=== PATIENT | female | born 1960 | race Caucasian/White ===

== ENCOUNTER 2017-06-21 15:56 | Inpatient (IN) | payer MEDICARE ==
[2017-06-21] MEDS ORDERED: Sodium Chloride 0.9% 1,000 ML IV ONE (18:53)
[2017-06-21 19:03] LABS: BASO # 0.1 K/uL (0.0-0.2); BASO % 0.6 % (0.0-2.0); EOS # 0.1 K/uL (0.0-0.7); EOS % 0.4 % (0.0-4.0); HEMATOCRIT 23.8 % (34.0-47.0); LYMPH # 1.1 K/uL (1.0-4.3); LYMPH % 8.8 % (20.0-40.0); MEAN CELL VOLUME 82.4 fL (81.0-99.0); MEAN CORPUSCULAR HEMOGLOBIN 26.7 pg (27.0-31.0); MEAN CORPUSCULAR HGB CONC 32.5 g/dL (33.0-37.0); MEAN PLATELET VOLUME 8.1 fL (7.2-11.7); MONO # 0.6 K/uL (0.0-0.8); NRBC % 0.4 % (0.0-2.0); PLATELET COUNT 255 K/uL (130-400); RED CELL DISTRIBUTION WIDTH 16.7 % (11.5-14.5)
--- NOTE | 2017-06-21 19:10 | C.PDOC ---
History Of Present Illness 57 year old female presents to the ED c/o epigastric pain radiating to her back associated with nausea, vomit that has been occurring for the past 10 days. Patient also states dyspnea on exertion, walking across the room. She has a Hx of 5-10 abdominal surgeries, denies gallbladder or appendix related surgery. Patient has Hx of colon resection removal of GIST. Otherwise, Patient denies fever, chills, dysuria, urinary symptoms, dizziness, CP, weakness or numbness. Time Seen by Provider: 06/21/17 18:46 Chief Complaint (Nursing): Abdominal Pain History Per: Patient History/Exam Limitations: no limitations Onset/Duration Of Symptoms: Days Current Symptoms Are (Timing): Still Present Location Of Pain/Discomfort: Epigastric Radiation Of Pain To:: Back Quality Of Discomfort: "Pain" Associated Symptoms: Nausea, Vomiting Alleviating Factors: None Recent travel outside of the [place]: No Additional History Per: Patient Abnormal Vaginal Bleeding: No Past Medical History Reviewed: Historical Data, Nursing Documentation, Vital Signs Vital Signs: Last Vital Signs Temp 98.1 F 06/21/17 16:57 Pulse 81 06/21/17 21:44 Resp 18 06/21/17 21:44 BP 104/53 L 06/21/17 21:44 Pulse Ox 100 06/21/17 22:23 - Medical History PMH: Anxiety, Asthma, HTN Surgical History: Appendectomy Family History: States: Unknown Family Hx - Social History Hx Alcohol Use: No Hx Substance Use: No Review Of Systems Constitutional: Negative for: Fever, Chills Cardiovascular: Negative for: Chest Pain, Palpitations Respiratory: Positive for: SOB with Excertion. Negative for: Cough Gastrointestinal: Positive for: Nausea, Vomiting, Abdominal Pain (Epigastric) Genitourinary: Negative for: Dysuria, Incontinence, Hematuria, Vaginal Discharge , Vaginal Bleeding Musculoskeletal: Positive for: Back Pain Skin: Negative for: Rash Neurological: Negative for: Weakness, Numbness Physical Exam - Physical Exam Appears: Agitated (Tearful), Other (Morbidly obese, anxious) Skin: Normal Color, Warm, Dry Head: Atraumatic, Normacephalic Eye(s): bilateral: PERRL Oral Mucosa: Moist, No Drooling Throat: Normal, No Erythema, No Exudate Neck: Normal ROM, Supple Chest: Symmetrical Cardiovascular: Rhythm Regular, No Murmur Respiratory: No Decreased Breath Sounds, No Accessory Muscle Use Gastrointestinal/Abdominal: Soft, Tenderness (vagely), No Guarding, No Rebound, Other (Globose abdomen) Back: No CVA Tenderness Extremity: Normal ROM, No Pedal Edema, No Deformity, No Swelling, Other (Obese) Pulses: Left Dorsalis Pedis: Normal, Right Dorsalis Pedis: Normal Neurological/Psych: Oriented x3, Normal Speech, Normal Cognition ED Course And Treatment - Laboratory Results Result Diagrams: 06/21/17 19:00 06/21/17 19:00 Lab Interpretation: Abnormal (tox + cannabis) ECG: Interpreted By Me ECG Rhythm: Sinus Rhythm ECG Interpretation: Normal Rate From EC O2 Sat by Pulse Oximetry: 100 (On RA) Pulse Ox Interpretation: Normal - Radiology CXR: Interpreted by Me CXR Interpretation: Yes: No Acute Disease Progress Note: ativan, toradol, IVF, zosyn empircally for ? local infection/ inflammation. Blood transfusion ordered and started. Reevaluation Time: 22:19 Reassessment Condition: Improved - Physician Consult Information Outcome Of Conversation: 2199: d/2 Dr. Bhatia- Surgery Hedis Analyst, ok to Consult , prefers adm to Medicine w Dr. Pastor Ascencio. 2214: d/w Dr. Pastor Ascencio, ok to admit Medical Decision Making Medical Decision Making: Impression : 57 y/o female with multiple Hx of abdominal surgeries c/o epigastric pain. Plan: * EKG, UA, blood work ordered * Pepcid 20 mg IVP given * Ativan 1 mg PO given * IV fluids given * Toradol 30 mg IVP given * Zofran 4 mg PO given * [id number] 40 meq PO given Recurrent GIST, transferse colon hypokalemia, repleated Anemia, prob due to GI loss- Blood transfusions pre-op Consult with Dr. Khan as she was involved in prior GIST eval. Disposition Doctor Will See Patient In The: Hospital Counseled Patient/Family Regarding: Studies Performed, Diagnosis - Disposition Disposition: HOSPITALIZED Disposition Time: 22:23 Condition: GOOD Forms: [facility] (Icelandic) - Clinical Impression Clinical Impression: Colon tumor, Anemia, Hypokalemia - Scribe Statement The provider has reviewed the documentation as recorded by the Scribe Jose Martin Lockwood All medical record entries made by the Scribe were at my direction and personally dictated by me. I have reviewed the chart and agree that the record accurately reflects my personal performance of the history, physical exam, medical decision making, and the department course for this patient. I have also personally directed, reviewed, and agree with the discharge instructions and disposition.
[2017-06-21 19:16] LABS: ALB/GLOB RATIO 1.4 (1.0-2.1); BILIRUBIN,TOTAL 1.2 mg/dL (0.2-1.3); POTASSIUM 2.8 mmol/L (3.6-5.2); TOTAL PROTEIN 6.8 g/dL (6.3-8.3)
[2017-06-21] MEDS ORDERED: Iodixanol 320 MG/ML 100 ML BOTTLE IV ONE (19:21)
[2017-06-21 19:27] LABS: TROPONIN I 0.027 ng/mL (0.00-0.120)
[2017-06-21] MEDS ORDERED: Potassium Chloride 10 mEq ER Tab PO STA (19:33)
[2017-06-21] MEDS ORDERED: Potassium Chloride 20 mEq ER Tab PO ONE (19:48)
[2017-06-21 21:00] LABS: EOSINOPHIL 1 % (0-4); NEUTROPHIL 87 % (50-75); TOTAL CELLS COUNTED 100
[2017-06-21 21:10] LABS: RBC URINE 8 /hpf (0-3); TRANSITIONAL EPITHIAL < 1 /hpf (0-3); URINE BACTERIA RARE (<OCC); URINE BILIRUBIN 1+ (NEGATIVE); URINE COLOR Amber (YELLOW); URINE GLUCOSE (UA) NORMAL (Normal); URINE KETONE TRACE mg/dL (NEGATIVE); URINE PROTEIN 1+ mg/dL (NEGATIVE); WBC URINE 7 /hpf (0-5)
[2017-06-21 21:11] LABS: URINE BLOOD 1+ (NEGATIVE); URINE LEUKOCYTE ESTERASE 1+ Leu/uL (Negative)
--- NOTE | 2017-06-21 21:46 | CT ---
EXAM: CT Abdomen and Pelvis With Intravenous Contrast CLINICAL HISTORY: 57 years old, female; Pain; Abdominal pain; Flank; Upper; Additional info: Epigastric x 10 days. History of gist resection many years prior TECHNIQUE: Axial computed tomography images of the abdomen and pelvis with intravenous contrast. All CT scans at this facility use one or more dose reduction techniques, viz.: automated exposure control; ma/kV adjustment per patient size (including targeted exams where dose is matched to indication; i.e. head); or iterative reconstruction technique. Coronal and sagittal reformatted images were created and reviewed. CONTRAST: 100 mL of visipaque 320 administered intravenously. COMPARISON: No relevant prior studies available. FINDINGS: Lower thorax: The bilateral lung bases are clear. ABDOMEN: Liver: Compressing the left lobe of the liver is a focus of mixed attenuation measuring 8 x 6.1 x 7.3 cm (anterior to posterior x medial to lateral x cranial to caudal dimension). Multiple well-circumscribed rounded areas of decreased attenuation are identified within the liver, statistically representing cysts. Perihepatic fluid is identified. Gallbladder and bile ducts: The gallbladder is only minimally distended, without calcified stones. No significant intra- or extrahepatic biliary ductal dilation. Pancreas: Enhances homogeneously. No ductal dilation. No discrete mass. Spleen: Perisplenic fluid is noted. Adrenals: No acute findings. Kidneys and ureters: No acute findings. No hydronephrosis or renal calculi. No discrete solid mass. PELVIS: Bladder: Unremarkable. Reproductive: Atrophic. Appendix: The appendix is not definitively visualized, however no pericecal inflammatory change is identified to suggest the presence of acute appendicitis. ABDOMEN and PELVIS: Stomach and bowel: Along the lesser curvature of the stomach is a rounded, well-circumscribed area of mixed attenuation with central vascularity, likely representing recurrent GIST. Anastomotic staple lines are identified within both the small and large bowel consistent with patient's history. Peritoneum: As above. Lymph nodes: No pathologically enlarged lymph nodes. Vasculature: Unremarkable. Bones: No acute fracture. IMPRESSION: Findings within the upper abdomen suggesting recurrent GIST, with perihepatic and perisplenic fluid.
[2017-06-21] MEDS ORDERED: Piperacillin/Tazobact 3.375 gm 100 ML IV STA (22:06)
[2017-06-21] MEDS ORDERED: Piperacill/Tazo 3.375gm in Dex 3.375 GM/50 ML BAG IVPB STA (22:55)
--- NOTE | 2017-06-21 23:40 | CP.PCM.CON ---
<Kenji Arceo - Last Filed: 06/22/17 00:33> History of Present Illness - History of Present Illness History of Present Illness: Surgery: Dr. Luna CC: abd pain HPI: 57F w. pmh of HTN, asthma, and GIST comes in w. abd pain x 3 weeks. Pt states that the abd pain has been constant, mostly in the epigastric/RUQ area and described as constant stabbing w. no alleviating or aggravating factors. She states that the pain is accompanied by nausea and multiple episodes of clear emesis. She states that 2 days ago the emesis was bilious in nature. She states that the pain is unrelated to diet. She does report constipation, non- bloody stools. She reports subjective fevers denies chills. Pt states that she has had several prior surgeries 2/2 her GIST. She was taking Gleevac and stopped about 1 yr ago after taking it for 6 months. She states that she stopped taking it because she did not like the way it made her feel. In ED CT was done with finding suggestive of recurrent upper abdominal GIST for which surgery was consulted. PMH: See above PSH: appendix, BSO, multiple intra-abdominal / intestinal resection of GIST, ventral hernia Meds: MAR reviewed NKDA Social: No ETOH/tobacco/drugs Fhx: GIST Review of Systems - Review of Systems All systems: reviewed and no additional remarkable complaints except (HPI) Past Patient History - Past Social History Smoking Status: Never Smoked - CARDIAC Hx Hypertension: Yes - PULMONARY Hx Asthma: Yes - HEMATOLOGICAL/ONCOLOGICAL Hx Blood Disorders: Yes Other/Comment: Gastrointestinal Stromal Tumors - GASTROINTESTINAL Hx Gastrointestinal Disorders: Yes Other/Comment: Gastrointestinal Stromal Tumors - PSYCHIATRIC Hx Anxiety: Yes Hx Substance Use: No - SURGICAL HISTORY Hx Appendectomy: Yes Meds Allergies/Adverse Reactions: Allergies Allergy/AdvReac Type Severity Reaction Status Date / Time orange juice Allergy Verified 06/21/17 17:05 Physical Exam - Constitutional Appears: Non-toxic, No Acute Distress - Head Exam Head Exam: ATRAUMATIC, NORMOCEPHALIC - Eye Exam Eye Exam: EOMI - ENT Exam ENT Exam: Mucous Membranes Moist, Normal External Ear Exam - Neck Exam Neck exam: Positive for: Full Rom - Respiratory Exam Respiratory Exam: NORMAL BREATHING PATTERN. absent: Accessory Muscle Use, Respiratory Distress - Cardiovascular Exam Cardiovascular Exam: REGULAR RHYTHM - GI/Abdominal Exam GI & Abdominal Exam: Soft, Tenderness (epigastric/RUQ). absent: Distended, Firm , Guarding, Rebound, Rigid - Extremities Exam Extremities exam: Negative for: calf tenderness, pedal edema - Neurological Exam Neurological exam: Alert, Oriented x3 - Psychiatric Exam Psychiatric exam: Normal Affect, Normal Mood - Skin Skin Exam: Dry, Normal Color, Warm Results - Vital Signs Recent Vital Signs: Last Vital Signs Temp 98.8 F 06/21/17 22:50 Pulse 84 06/21/17 22:50 Resp 18 06/21/17 22:50 BP 109/56 L 06/21/17 22:50 Pulse Ox 96 06/21/17 22:50 - Labs Result Diagrams: 06/21/17 19:00 06/21/17 19:00 Labs: Laboratory Results - last 24 hr 06/21/17 06/21/17 06/21/17 19:00 19:00 19:56 WBC 13.0 H RBC 2.89 L Hgb 7.7 L Hct 23.8 L MCV 82.4 MCH 26.7 L MCHC 32.5 L RDW 16.7 H Plt Count 255 MPV 8.1 Neut % (Auto) 85.2 H Lymph % (Auto) 8.8 L [place] % (Auto) 5.0 Eos % (Auto) 0.4 Baso % (Auto) 0.6 Neut # 11.1 H Lymph # 1.1 [place] # 0.6 Eos # 0.1 Baso # 0.1 Neutrophils % (Manual) 87 H Lymphocytes % (Manual) 8 L Monocytes % (Manual) 4 Eosinophils % (Manual) 1 Platelet Estimate Normal Sodium 132 Potassium 2.8 L Chloride 94 L Carbon Dioxide 24 Anion Gap 17 BUN 27 H Creatinine 1.2 Est GFR ( Amer) 56 Est GFR (Non-Af Amer) 46 Random Glucose 98 Calcium 8.0 L Total Bilirubin 1.2 AST 25 ALT 45 Alkaline Phosphatase 177 H Troponin I 0.0270 Total Protein 6.8 Albumin 4.0 Globulin 2.9 Albumin/Globulin Ratio 1.4 Lipase 93 Urine Color Urine Clarity Urine pH Ur Specific Anna Urine Protein Urine Glucose (UA) Urine Ketones Urine Blood Urine Nitrate Urine Bilirubin Urine Urobilinogen Ur Leukocyte Esterase Urine WBC (Auto) Urine RBC (Auto) Ur Squamous Epith Cells Ur Transition Epith Cell Urine Bacteria Urine HCG, Qual Urine Opiates Screen Urine Methadone Screen Ur Barbiturates Screen Ur Phencyclidine Scrn Ur Amphetamines Screen U Benzodiazepines Scrn U Oth Cocaine Metabols U Cannabinoids Screen Blood Type B POSITIVE Antibody Screen Negative 06/21/17 06/21/17 20:49 20:49 WBC RBC Hgb Hct MCV MCH MCHC RDW Plt Count MPV Neut % (Auto) Lymph % (Auto) [place] % (Auto) Eos % (Auto) Baso % (Auto) Neut # Lymph # [place] # Eos # Baso # Neutrophils % (Manual) Lymphocytes % (Manual) Monocytes % (Manual) Eosinophils % (Manual) Platelet Estimate Sodium Potassium Chloride Carbon Dioxide Anion Gap BUN Creatinine Est GFR ( Amer) Est GFR (Non-Af Amer) Random Glucose Calcium Total Bilirubin AST ALT Alkaline Phosphatase Troponin I Total Protein Albumin Globulin Albumin/Globulin Ratio Lipase Urine Color Yue Urine Clarity Hazy Urine pH 5.0 Ur Specific Anna 1.030 Urine Protein 1+ H Urine Glucose (UA) Normal Urine Ketones Trace Urine Blood 1+ H Urine Nitrate Negative Urine Bilirubin 1+ H Urine Urobilinogen 2.0 H Ur Leukocyte Esterase 1+ H Urine WBC (Auto) 7 H Urine RBC (Auto) 8 H Ur Squamous Epith Cells 11 H Ur Transition Epith Cell < 1 Urine Bacteria Rare Urine HCG, Qual Negative Urine Opiates Screen Negative Urine Methadone Screen Negative Ur Barbiturates Screen Negative Ur Phencyclidine Scrn Negative Ur Amphetamines Screen Negative U Benzodiazepines Scrn Negative U Oth Cocaine Metabols Negative U Cannabinoids Screen Positive H Blood Type Antibody Screen - Imaging and Cardiology CT scan - abdomen Status: Image reviewed by me, Report reviewed by me Assessment & Plan - Assessment and Plan (Free Text) Assessment: 57F w. abd pain likely 2/2 recurrent GIST -recommend Heme/onc and GI consult -IVF -pain meds -zofran -monitor H/H, transfuse if pt becomes symptomatic, will start venofer for now -serial abd exams -d/w attending Adis PGY3 <Elias Luna - Last Filed: 06/25/17 23:17> Meds - Medications Medications: Current Medications Ferric Sodium Gluconate Complex (Ferrlecit) 125 mg IVPB DAILY TIN Stop: 06/30/17 10:01 Last Admin: 06/25/17 11:25 Dose: 125 mg Magnesium Hydroxide (Milk Of Magnesia) 30 ml PO DAILY TIN Stop: 06/27/17 18:21 Last Admin: 06/25/17 22:18 Dose: 30 ml Morphine Sulfate (Morphine) 4 mg IVP Q4 PRN PRN Reason: Pain, moderate (4-7) Last Admin: 06/25/17 17:34 Dose: 4 mg Ondansetron HCl (Zofran Inj) 4 mg IVP Q4 PRN PRN Reason: Nausea/Vomiting Last Admin: 06/25/17 17:34 Dose: 4 mg Pantoprazole Sodium (Protonix Inj) 40 mg IVP DAILY [facility] Last Admin: 06/25/17 11:25 Dose: 40 mg Pneumococcal Polyvalent Vaccine (Pneumovax 23 Vaccine) 0.5 ml IM .ONCE ONE Stop: 06/26/17 10:01 Senna/Docusate Sodium (Senokot S 50 Mg-8.6 Mg) 2 tab PO DAILY [facility] Last Admin: 06/25/17 11:25 Dose: 2 tab Results - Vital Signs Recent Vital Signs: Last Vital Signs Temp 97.8 F 06/25/17 16:00 Pulse 97 H 06/25/17 16:00 Resp 20 06/25/17 16:00 BP 103/58 L 06/25/17 16:00 Pulse Ox 100 06/25/17 16:00 - Labs Result Diagrams: 06/25/17 07:31 06/25/17 07:31 Labs: Laboratory Results - last 24 hr 06/25/17 06/25/17 07:31 07:31 WBC 12.0 H RBC 2.77 L Hgb 7.7 L Hct 23.5 L MCV 85.0 MCH 28.0 MCHC 32.9 L RDW 15.7 H Plt Count 187 MPV 8.4 Neut % (Auto) 81.9 H Lymph % (Auto) 10.7 L [place] % (Auto) 5.8 Eos % (Auto) 1.1 Baso % (Auto) 0.5 Neut # 9.8 H Lymph # 1.3 [place] # 0.7 Eos # 0.1 Baso # 0.1 Sodium 136 Potassium 4.0 Chloride 103 Carbon Dioxide 24 Anion Gap 13 BUN 18 H Creatinine 0.9 Est GFR ( Amer) > 60 Est GFR (Non-Af Amer) > 60 Random Glucose 123 H Calcium 7.7 L Total Bilirubin 1.2 AST 22 ALT 23 Alkaline Phosphatase 137 H Total Protein 5.6 L Albumin 3.1 L Globulin 2.5 Albumin/Globulin Ratio 1.2 Attending/Attestation - Attestation I have personally seen and examined this patient.: Yes I have fully participated in the care of the patient.: Yes I have reviewed all pertinent clinical information: Yes Notes (Text): Pt was seen and examined at bedside Agree with above note and assessment Pt with recurrent GIST with severe anemia Labs and radiology reviewed Abdomen is Mild tender. NPO, IVF GI consult for EGD Oncology consult Repeat labs in am c.w current mx Plan d/w pt in detail Risk and benefit explained in detail.
[2017-06-22] MEDS: Sodium Chloride 0.9% 1,000 ML IV SCH ×4 (02:38→22:38)
[2017-06-22] MEDS: Ferric Sodium Gluconat Complex 62.5 mg/5 ml Vial IVPB SCH (09:15)
--- NOTE | 2017-06-22 10:22 | CP.PCM.PN ---
<BurgessMan - Last Filed: 06/22/17 10:02> Subjective - Date & Time of Evaluation Date of Evaluation: 06/22/17 Time of Evaluation: 06:50 - Subjective Subjective: General Surgery Pt S&E, NAEO. Pain improved but still present. No N/V. No Current complaints Objective - Vital Signs/Intake and Output Vital Signs (last 24 hours): Temp Pulse Resp BP Pulse Ox 97.4 F L 75 20 96/60 L 100 06/22/17 07:00 06/22/17 07:00 06/22/17 07:00 06/22/17 07:00 06/22/17 07:00 Intake and Output: 06/22/17 06/22/17 06:59 18:59 Intake Total 600 Balance 600 - Medications Medications: Current Medications Famotidine (Pepcid) 20 mg IVP Q12 [facility] Last Admin: 06/22/17 09:14 Dose: 20 mg Ferric Sodium Gluconate Complex (Ferrlecit) 125 mg IVPB DAILY [facility] Stop: 06/30/17 10:01 Last Admin: 06/22/17 09:15 Dose: 125 mg Sodium Chloride (Sodium Chloride 0.9%) 1,000 mls @ 150 mls/hr IV .Q6H40M [facility] Last Admin: 06/22/17 09:13 Dose: 150 mls/hr Potassium Chloride (Potassium Chloride 20 Meq/100 Ml) 20 meq in 100 mls @ 50 mls/hr IVPB Q2 [facility] Stop: 06/22/17 15:59 Morphine Sulfate (Morphine) 4 mg IVP Q4 PRN PRN Reason: Pain, moderate (4-7) Ondansetron HCl (Zofran Inj) 4 mg IVP Q4 PRN PRN Reason: Nausea/Vomiting Pneumococcal Polyvalent Vaccine (Pneumovax 23 Vaccine) 0.5 ml IM .ONCE ONE Stop: 06/25/17 14:01 - Labs Labs: 06/21/17 19:00 06/21/17 19:00 - Constitutional Appears: Non-toxic, No Acute Distress - Head Exam Head Exam: ATRAUMATIC, NORMOCEPHALIC - Respiratory Exam Respiratory Exam: NORMAL BREATHING PATTERN. absent: Respiratory Distress - GI/Abdominal Exam GI & Abdominal Exam: Guarding, Soft, Tenderness (mild in epigastrum ). absent: Distended, Firm, Rigid, Rebound - Neurological Exam Neurological Exam: Alert, Awake - Skin Skin Exam: Dry, Warm Assessment and Plan - Assessment and Plan (Free Text) Assessment: 57F w. abd pain likely 2/2 recurrent GIST Plan: Dr. Luna to D/W Heme/Onc Rec GI consult. D/W Dr. Jeremy Worthington PGY4 <Elias Luna - Last Filed: 06/25/17 23:24> Objective - Vital Signs/Intake and Output Vital Signs (last 24 hours): Temp Pulse Resp BP Pulse Ox 97.8 F 97 H 20 103/58 L 100 06/25/17 16:00 06/25/17 16:00 06/25/17 16:00 06/25/17 16:00 06/25/17 16:00 Intake and Output: 06/25/17 06/26/17 18:59 06:59 Intake Total 1950 Balance 1950 - Medications Medications: Current Medications Ferric Sodium Gluconate Complex (Ferrlecit) 125 mg IVPB DAILY TIN Stop: 06/30/17 10:01 Last Admin: 06/25/17 11:25 Dose: 125 mg Magnesium Hydroxide (Milk Of Magnesia) 30 ml PO DAILY TIN Stop: 06/27/17 18:21 Last Admin: 06/25/17 22:18 Dose: 30 ml Morphine Sulfate (Morphine) 4 mg IVP Q4 PRN PRN Reason: Pain, moderate (4-7) Last Admin: 06/25/17 17:34 Dose: 4 mg Ondansetron HCl (Zofran Inj) 4 mg IVP Q4 PRN PRN Reason: Nausea/Vomiting Last Admin: 06/25/17 17:34 Dose: 4 mg Pantoprazole Sodium (Protonix Inj) 40 mg IVP DAILY TIN Last Admin: 06/25/17 11:25 Dose: 40 mg Pneumococcal Polyvalent Vaccine (Pneumovax 23 Vaccine) 0.5 ml IM .ONCE ONE Stop: 06/26/17 10:01 Senna/Docusate Sodium (Senokot S 50 Mg-8.6 Mg) 2 tab PO DAILY TIN Last Admin: 06/25/17 11:25 Dose: 2 tab - Labs Labs: 06/25/17 07:31 06/25/17 07:31 PT 12.0 SECONDS (9.7-12.2) 06/24/17 06:49 INR 1.1 06/24/17 06:49 Attending/Attestation - Attestation I have personally seen and examined this patient.: Yes I have fully participated in the care of the patient.: Yes I have reviewed all pertinent clinical information, including history, physical exam and plan: Yes Notes (Text): Pt was seen and examined at bedside Agree with above note and assessment Pt with recurrent GIST Plan d.w Dr. Mckinneygal GI consult for EUS and biopsy Plan d/w pt in detail Risk and benefit explained in detail.
[2017-06-22 12:09] LABS: MEAN CELL VOLUME 84.2 fL (81.0-99.0); MEAN CORPUSCULAR HEMOGLOBIN 27.9 pg (27.0-31.0); MEAN CORPUSCULAR HGB CONC 33.1 g/dL (33.0-37.0); RED CELL DISTRIBUTION WIDTH 16.6 % (11.5-14.5); WHITE BLOOD COUNT 7.6 K/uL (4.8-10.8)
[2017-06-22 12:32] LABS: ALB/GLOB RATIO 0.9 (1.0-2.1); BILIRUBIN,TOTAL 0.8 mg/dL (0.2-1.3); CALCIUM 7.6 mg/dl (8.6-10.4); MAGNESIUM 2.2 mg/dL (1.6-2.3); PHOSPHOROUS 3.9 mg/dL (2.5-4.5); POTASSIUM 2.9 mmol/L (3.6-5.2); TOTAL PROTEIN 6.6 g/dL (6.3-8.3)
--- NOTE | 2017-06-22 16:13 | CP.PCM.HP ---
History of Present Illness - History of Present Illness History of Present Illness: A 57-year-old female with PMHanxiety, asthma, HTN presents to the ER for evaluation of abdominal pain. C/Oabdominal pain for a few days. Insidious in onset, progressive, vague, dull aching, radiating to the back, intensity of 5/10, no aggravating or relieving factors. C/Onausea for of 10 days. C/Ovomiting for 10 days. Nonbilious, non-bloody, containing only food particles. C/Odyspnea on exertion for 10 days. Insidious in onset, progressive, course on walking on ground level, NYHA grade 3, complicated by rest. No C/Obladder disturbances, bowel disturbances, fever, chills, rigors, yellow discoloration of urine sclera. Hold Crestor the total Present on Admission - Present on Admission Any Indicators Present on Admission: No Past Patient History - Past Medical History & Family History Past Medical History?: Yes - Past Social History Smoking Status: Never Smoked - CARDIAC Hx Cardiac Disorders: Yes Hx Hypertension: Yes - PULMONARY Hx Respiratory Disorders: Yes Hx Asthma: Yes - NEUROLOGICAL Hx Neurological Disorder: No - HEENT Hx HEENT Problems: No - RENAL Hx Chronic Kidney Disease: No - ENDOCRINE/METABOLIC Hx Endocrine Disorders: No - HEMATOLOGICAL/ONCOLOGICAL Hx Blood Disorders: Yes Other/Comment: Gastrointestinal Stromal Tumors - INTEGUMENTARY Hx Dermatological Problems: No - MUSCULOSKELETAL/RHEUMATOLOGICAL Hx Musculoskeletal Disorders: Yes Hx Falls: Yes - GASTROINTESTINAL Hx Gastrointestinal Disorders: Yes Other/Comment: Gastrointestinal Stromal Tumors - GENITOURINARY/GYNECOLOGICAL Hx Genitourinary Disorders: No - PSYCHIATRIC Hx Psychophysiologic Disorder: Yes Hx Anxiety: Yes Hx Substance Use: No - SURGICAL HISTORY Hx Surgeries: Yes Hx Appendectomy: Yes - ANESTHESIA Hx Anesthesia: Yes Hx Anesthesia Reactions: Yes (difficulty to arouse after surgery) Meds Allergies/Adverse Reactions: Allergies Allergy/AdvReac Type Severity Reaction Status Date / Time orange juice Allergy Verified 06/21/17 17:05 Physical Exam - Constitutional Appears: Well - Head Exam Head Exam: ATRAUMATIC, NORMAL INSPECTION, NORMOCEPHALIC - Eye Exam Eye Exam: EOMI, Normal appearance, PERRL Pupil Exam: NORMAL ACCOMODATION, PERRL - ENT Exam ENT Exam: Mucous Membranes Moist, Normal Exam - Neck Exam Neck exam: Positive for: Normal Inspection - Respiratory Exam Respiratory Exam: Decreased Breath Sounds - Cardiovascular Exam Cardiovascular Exam: REGULAR RHYTHM, +S1, +S2 - GI/Abdominal Exam GI & Abdominal Exam: Diminished Bowel Sounds, Soft - Rectal Exam Rectal Exam: Deferred Results - Vital Signs Recent Vital Signs: Last Vital Signs Temp 98.5 F 06/22/17 15:20 Pulse 83 06/22/17 15:20 Resp 18 06/22/17 15:20 BP 93/63 L 06/22/17 15:20 Pulse Ox 100 06/22/17 07:00 - Labs Result Diagrams: 06/24/17 12:00 06/24/17 12:00 Labs: Laboratory Results - last 24 hr 06/21/17 06/21/17 06/21/17 19:00 19:00 19:56 WBC 13.0 H RBC 2.89 L Hgb 7.7 L Hct 23.8 L MCV 82.4 MCH 26.7 L MCHC 32.5 L RDW 16.7 H Plt Count 255 MPV 8.1 Neut % (Auto) 85.2 H Lymph % (Auto) 8.8 L [place] % (Auto) 5.0 Eos % (Auto) 0.4 Baso % (Auto) 0.6 Neut # 11.1 H Lymph # 1.1 [place] # 0.6 Eos # 0.1 Baso # 0.1 Neutrophils % (Manual) 87 H Lymphocytes % (Manual) 8 L Monocytes % (Manual) 4 Eosinophils % (Manual) 1 Platelet Estimate Normal Sodium 132 Potassium 2.8 L Chloride 94 L Carbon Dioxide 24 Anion Gap 17 BUN 27 H Creatinine 1.2 Est GFR ( Amer) 56 Est GFR (Non-Af Amer) 46 Random Glucose 98 Calcium 8.0 L Phosphorus Magnesium Total Bilirubin 1.2 AST 25 ALT 45 Alkaline Phosphatase 177 H Troponin I 0.0270 Total Protein 6.8 Albumin 4.0 Globulin 2.9 Albumin/Globulin Ratio 1.4 Lipase 93 Urine Color Urine Clarity Urine pH Ur Specific [place] Urine Protein Urine Glucose (UA) Urine Ketones Urine Blood Urine Nitrate Urine Bilirubin Urine Urobilinogen Ur Leukocyte Esterase Urine WBC (Auto) Urine RBC (Auto) Ur Squamous Epith Cells Ur Transition Epith Cell Urine Bacteria Urine HCG, Qual Urine Opiates Screen Urine Methadone Screen Ur Barbiturates Screen Ur Phencyclidine Scrn Ur Amphetamines Screen U Benzodiazepines Scrn U Oth Cocaine Metabols U Cannabinoids Screen Blood Type B POSITIVE Antibody Screen Negative 06/21/17 06/21/17 06/22/17 20:49 20:49 11:57 WBC 7.6 RBC 2.50 L Hgb 7.0 L Hct 21.0 L MCV 84.2 MCH 27.9 MCHC 33.1 RDW 16.6 H Plt Count 193 MPV 8.0 Neut % (Auto) Lymph % (Auto) [place] % (Auto) Eos % (Auto) Baso % (Auto) Neut # Lymph # [place] # Eos # Baso # Neutrophils % (Manual) Lymphocytes % (Manual) Monocytes % (Manual) Eosinophils % (Manual) Platelet Estimate Sodium Potassium Chloride Carbon Dioxide Anion Gap BUN Creatinine Est GFR ( Amer) Est GFR (Non-Af Amer) Random Glucose Calcium Phosphorus Magnesium Total Bilirubin AST ALT Alkaline Phosphatase Troponin I Total Protein Albumin Globulin Albumin/Globulin Ratio Lipase Urine Color Yue Urine Clarity Hazy Urine pH 5.0 Ur Specific [place] 1.030 Urine Protein 1+ H Urine Glucose (UA) Normal Urine Ketones Trace Urine Blood 1+ H Urine Nitrate Negative Urine Bilirubin 1+ H Urine Urobilinogen 2.0 H Ur Leukocyte Esterase 1+ H Urine WBC (Auto) 7 H Urine RBC (Auto) 8 H Ur Squamous Epith Cells 11 H Ur Transition Epith Cell < 1 Urine Bacteria Rare Urine HCG, Qual Negative Urine Opiates Screen Negative Urine Methadone Screen Negative Ur Barbiturates Screen Negative Ur Phencyclidine Scrn Negative Ur Amphetamines Screen Negative U Benzodiazepines Scrn Negative U Oth Cocaine Metabols Negative U Cannabinoids Screen Positive H Blood Type Antibody Screen 06/22/17 11:57 WBC RBC Hgb Hct MCV MCH MCHC RDW Plt Count MPV Neut % (Auto) Lymph % (Auto) [place] % (Auto) Eos % (Auto) Baso % (Auto) Neut # Lymph # [place] # Eos # Baso # Neutrophils % (Manual) Lymphocytes % (Manual) Monocytes % (Manual) Eosinophils % (Manual) Platelet Estimate Sodium 135 Potassium 2.9 L Chloride 98 Carbon Dioxide 26 Anion Gap 13 BUN 28 H Creatinine 1.3 H Est GFR ( Amer) 51 Est GFR (Non-Af Amer) 42 Random Glucose 107 H Calcium 7.6 L Phosphorus 3.9 Magnesium 2.2 Total Bilirubin 0.8 AST 25 ALT 34 Alkaline Phosphatase 160 H Troponin I Total Protein 6.6 Albumin 3.2 L Globulin 3.5 Albumin/Globulin Ratio 0.9 L Lipase Urine Color Urine Clarity Urine pH Ur Specific [place] Urine Protein Urine Glucose (UA) Urine Ketones Urine Blood Urine Nitrate Urine Bilirubin Urine Urobilinogen Ur Leukocyte Esterase Urine WBC (Auto) Urine RBC (Auto) Ur Squamous Epith Cells Ur Transition Epith Cell Urine Bacteria Urine HCG, Qual Urine Opiates Screen Urine Methadone Screen Ur Barbiturates Screen Ur Phencyclidine Scrn Ur Amphetamines Screen U Benzodiazepines Scrn U Oth Cocaine Metabols U Cannabinoids Screen Blood Type Antibody Screen
[2017-06-23] MEDS: Ferric Sodium Gluconat Complex 62.5 mg/5 ml Vial IVPB SCH (09:59)
[2017-06-23] MEDS: Sodium Chloride 0.9% 1,000 ML IV SCH ×3 (10:00→23:25)
[2017-06-23 11:25] LABS: BASO # 0.1 K/uL (0.0-0.2); BASO % 0.9 % (0.0-2.0); EOS # 0.2 K/uL (0.0-0.7); EOS % 3.5 % (0.0-4.0); HEMATOCRIT 20.8 % (34.0-47.0); LYMPH % 14.6 % (20.0-40.0); MEAN CELL VOLUME 85.7 fL (81.0-99.0); MEAN CORPUSCULAR HGB CONC 32.6 g/dL (33.0-37.0); MEAN PLATELET VOLUME 8.1 fL (7.2-11.7); MONO # 0.4 K/uL (0.0-0.8); NRBC % 0.3 % (0.0-2.0); RED CELL DISTRIBUTION WIDTH 16.5 % (11.5-14.5); WHITE BLOOD COUNT 7.1 K/uL (4.8-10.8)
[2017-06-23 11:46] LABS: BLOOD UREA NITROGEN 22 mg/dL (7-17); CALCIUM 7.4 mg/dl (8.6-10.4); CARBON DIOXIDE 26 mmol/L (22-30); CHLORIDE 101 mmol/L (98-107); GFR AFRICAN-AMERICAN > 60; GLUCOSE,RANDOM 103 mg/dL (65-105); POTASSIUM 3.7 mmol/L (3.6-5.2); SODIUM 134 mmol/L (132-148)
[2017-06-23] MEDS: Morphine 4 MG/ML VIAL IVP PRN (13:54)
--- NOTE | 2017-06-23 16:33 | CP.PCM.PN ---
<Maulik Worthingtonel - Last Filed: 06/23/17 16:31> Subjective - Date & Time of Evaluation Date of Evaluation: 06/23/17 Time of Evaluation: 10:00 - Subjective Subjective: General Surgery Pt S&E, NAEO. Pain improved. Tolerating diet Objective - Vital Signs/Intake and Output Vital Signs (last 24 hours): Temp Pulse Resp BP Pulse Ox 98.1 F 94 H 20 102/73 97 06/23/17 16:14 06/23/17 16:14 06/23/17 16:14 06/23/17 16:14 06/23/17 09:00 Intake and Output: 06/23/17 06/23/17 06:59 18:59 Intake Total 1200 1600 Balance 1200 1600 - Medications Medications: Current Medications Ferric Sodium Gluconate Complex (Ferrlecit) 125 mg IVPB DAILY [facility] Stop: 06/30/17 10:01 Last Admin: 06/23/17 09:59 Dose: 125 mg Sodium Chloride (Sodium Chloride 0.9%) 1,000 mls @ 150 mls/hr IV .Q6H40M [facility] Last Admin: 06/23/17 15:01 Dose: 150 mls/hr Morphine Sulfate (Morphine) 4 mg IVP Q4 PRN PRN Reason: Pain, moderate (4-7) Last Admin: 06/23/17 13:54 Dose: 4 mg Ondansetron HCl (Zofran Inj) 4 mg IVP Q4 PRN PRN Reason: Nausea/Vomiting Last Admin: 06/22/17 12:19 Dose: 4 mg Pantoprazole Sodium (Protonix Inj) 40 mg IVP DAILY [facility] Last Admin: 06/23/17 13:55 Dose: 40 mg Pneumococcal Polyvalent Vaccine (Pneumovax 23 Vaccine) 0.5 ml IM .ONCE ONE Stop: 06/25/17 14:01 - Labs Labs: 06/23/17 11:18 06/23/17 11:18 - Constitutional Appears: Non-toxic, No Acute Distress - Head Exam Head Exam: ATRAUMATIC, NORMOCEPHALIC - Respiratory Exam Respiratory Exam: NORMAL BREATHING PATTERN. absent: Respiratory Distress - GI/Abdominal Exam GI & Abdominal Exam: Soft, Tenderness (mild). 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 Khan is working pt up. Awaiting her decision on whether Surgery will be necessary D/W Dr. Jeremy Worthington PGY4 <Elias Luna - Last Filed: 06/25/17 23:26> Objective - Vital Signs/Intake and Output Vital Signs (last 24 hours): Temp Pulse Resp BP Pulse Ox 97.8 F 97 H 20 103/58 L 100 06/25/17 16:00 06/25/17 16:00 06/25/17 16:00 06/25/17 16:00 06/25/17 16:00 Intake and Output: 06/25/17 06/26/17 18:59 06:59 Intake Total 1950 Balance 1950 - Medications Medications: Current Medications Ferric Sodium Gluconate Complex (Ferrlecit) 125 mg IVPB DAILY [facility] Stop: 06/30/17 10:01 Last Admin: 06/25/17 11:25 Dose: 125 mg Magnesium Hydroxide (Milk Of Magnesia) 30 ml PO DAILY TIN Stop: 06/27/17 18:21 Last Admin: 06/25/17 22:18 Dose: 30 ml Morphine Sulfate (Morphine) 4 mg IVP Q4 PRN PRN Reason: Pain, moderate (4-7) Last Admin: 06/25/17 17:34 Dose: 4 mg Ondansetron HCl (Zofran Inj) 4 mg IVP Q4 PRN PRN Reason: Nausea/Vomiting Last Admin: 06/25/17 17:34 Dose: 4 mg Pantoprazole Sodium (Protonix Inj) 40 mg IVP DAILY [facility] Last Admin: 06/25/17 11:25 Dose: 40 mg Pneumococcal Polyvalent Vaccine (Pneumovax 23 Vaccine) 0.5 ml IM .ONCE ONE Stop: 06/26/17 10:01 Senna/Docusate Sodium (Senokot S 50 Mg-8.6 Mg) 2 tab PO DAILY TIN Last Admin: 06/25/17 11:25 Dose: 2 tab - Labs Labs: 06/25/17 07:31 06/25/17 07:31 PT 12.0 SECONDS (9.7-12.2) 06/24/17 06:49 INR 1.1 06/24/17 06:49 Attending/Attestation - Attestation I have personally seen and examined this patient.: Yes I have fully participated in the care of the patient.: Yes I have reviewed all pertinent clinical information, including history, physical exam and plan: Yes Notes (Text): Pt was seen and examined at bedside Agree with above note and assessment Pt is improving clinically GI consult appreciated EUS on wednesday c.w current mx Plan d/w pt in detail Risk and benefit explained in detail.
--- NOTE | 2017-06-23 18:49 | CP.PCM.CON ---
History of Present Illness - History of Present Illness History of Present Illness: 57 yo woman,admitted with nausea, vomiting, abdominal pain, found to have severe anemia, admitted for work up. She had a CAT scan showing lesser curvature lesion c/w GIST. The patient is s/p 2 units of PRBCs without any change in her Hgb, but is feeling better and is tolerating PO. So far the anemia work up is inconclusive, the patient denies any overt bleeding.(ferritin levels drawn after iron infusion and blood transfusion). The patient is known to me from the office, last seen in 2009. 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 She was started on postop imatinib more than 10 years ago, but stopped after a few months because of side effects and then was lost to follow up. She has a strong family history of GIST- mother, sister, maternal uncle and has undergone genetic testing at [facility], results of which are not available to me, but as per patient, were given to her. Past Patient History - Past Medical History & Family History Past Medical History?: Yes - Past Social History Smoking Status: Never Smoked - CARDIAC Hx Cardiac Disorders: Yes Hx Hypertension: Yes - PULMONARY Hx Respiratory Disorders: Yes Hx Asthma: Yes - NEUROLOGICAL Hx Neurological Disorder: No - HEENT Hx HEENT Problems: No - RENAL Hx Chronic Kidney Disease: No - ENDOCRINE/METABOLIC Hx Endocrine Disorders: No - HEMATOLOGICAL/ONCOLOGICAL Hx Blood Disorders: Yes Other/Comment: Gastrointestinal Stromal Tumors - INTEGUMENTARY Hx Dermatological Problems: No - MUSCULOSKELETAL/RHEUMATOLOGICAL Hx Musculoskeletal Disorders: Yes Hx Falls: Yes - GASTROINTESTINAL Hx Gastrointestinal Disorders: Yes Other/Comment: Gastrointestinal Stromal Tumors - GENITOURINARY/GYNECOLOGICAL Hx Genitourinary Disorders: No - PSYCHIATRIC Hx Psychophysiologic Disorder: Yes Hx Anxiety: Yes Hx Substance Use: No - SURGICAL HISTORY Hx Surgeries: Yes Hx Appendectomy: Yes - ANESTHESIA Hx Anesthesia: Yes Hx Anesthesia Reactions: Yes (difficulty to arouse after surgery) Meds Allergies/Adverse Reactions: Allergies Allergy/AdvReac Type Severity Reaction Status Date / Time orange juice Allergy Verified 06/21/17 17:05 - Medications Medications: Current Medications Ferric Sodium Gluconate Complex (Ferrlecit) 125 mg IVPB DAILY [facility] Stop: 06/30/17 10:01 Last Admin: 06/23/17 09:59 Dose: 125 mg Sodium Chloride (Sodium Chloride 0.9%) 1,000 mls @ 150 mls/hr IV .Q6H40M [facility] Last Admin: 06/23/17 15:01 Dose: 150 mls/hr Morphine Sulfate (Morphine) 4 mg IVP Q4 PRN PRN Reason: Pain, moderate (4-7) Last Admin: 06/23/17 13:54 Dose: 4 mg Ondansetron HCl (Zofran Inj) 4 mg IVP Q4 PRN PRN Reason: Nausea/Vomiting Last Admin: 06/22/17 12:19 Dose: 4 mg Pantoprazole Sodium (Protonix Inj) 40 mg IVP DAILY [facility] Last Admin: 06/23/17 13:55 Dose: 40 mg Pneumococcal Polyvalent Vaccine (Pneumovax 23 Vaccine) 0.5 ml IM .ONCE ONE Stop: 06/25/17 14:01 Senna/Docusate Sodium (Senokot S 50 Mg-8.6 Mg) 2 tab PO DAILY [facility] Results - Vital Signs Recent Vital Signs: Last Vital Signs Temp 87 F L 06/23/17 16:31 Pulse 20 L 06/23/17 16:31 Resp 20 06/23/17 16:31 BP 102/57 L 06/23/17 16:31 Pulse Ox 97 06/23/17 16:31 - Labs Result Diagrams: 06/23/17 11:18 06/23/17 11:18 Labs: Laboratory Results - last 24 hr 06/23/17 06/23/17 06/23/17 11:18 11:18 13:46 WBC 7.1 RBC 2.42 L Hgb 6.8 L Hct 20.8 L MCV 85.7 MCH 28.0 MCHC 32.6 L RDW 16.5 H Plt Count 181 MPV 8.1 Neut % (Auto) 75.0 Lymph % (Auto) 14.6 L [place] % (Auto) 6.0 Eos % (Auto) 3.5 Baso % (Auto) 0.9 Neut # 5.3 Lymph # 1.0 [place] # 0.4 Eos # 0.2 Baso # 0.1 Retic Count 5.7 H Sodium 134 Potassium 3.7 Chloride 101 Carbon Dioxide 26 Anion Gap 11 BUN 22 H Creatinine 1.0 Est GFR ( Amer) > 60 Est GFR (Non-Af Amer) 57 Random Glucose 103 Calcium 7.4 L Ferritin Lactate Dehydrogenase Vitamin B12 Blood Type Antibody Screen 06/23/17 06/23/17 13:46 13:46 WBC RBC Hgb Hct MCV MCH MCHC RDW Plt Count MPV Neut % (Auto) Lymph % (Auto) [place] % (Auto) Eos % (Auto) Baso % (Auto) Neut # Lymph # [place] # Eos # Baso # Retic Count Sodium Potassium Chloride Carbon Dioxide Anion Gap BUN Creatinine Est GFR ( Amer) Est GFR (Non-Af Amer) Random Glucose Calcium Ferritin 91.7 Lactate Dehydrogenase 469 Vitamin B12 346 Blood Type B POSITIVE Antibody Screen Negative Assessment & Plan (1) Gastrointestinal stromal neoplasm Assessment and Plan: 57 yo woman who has a history of intraabdominal GIST, is admitted with N,V, abdominal pain and found to have severe anemia without any overt signs of bleeding or evidence of hemolysis. A CAT scan showing the possibility of a gastric tumor, ?? GIST. The patient's records from over 10 years ago including pathology are unavailable , so the exact location and risk stratification(ie, size and mitotic rate) of GIST unavailable. At this time would recommend the following- -GI work up to evaluate for a bleeding source and for EUS biopsy of the lesion in the stomach..will need pathology to evaluate for type of lesion, if it is a GIST, to evaluate mitotic rate, KIT and PDGFRA mutation -CAT scan of the chest. - Do not think that surgery is appropriate at this time, prior to establishing a diagnosis and also because patient is a "high risk" candidate because of her obesity and multiple prior abdominal surgeries. If the biopsy confirms a GIST and tumor is localized and deemed resectable, limited surgery is an option( risk to be determined by surgeon). If she is not a candidate for surgery, PO imatinib is an option for unresectable disease. Status: Acute
--- NOTE | 2017-06-23 19:00 | CP.PCM.PN ---
Subjective - Date & Time of Evaluation Date of Evaluation: 06/23/17 Time of Evaluation: 10:20 - Subjective Subjective: clinically same Objective - Vital Signs/Intake and Output Vital Signs (last 24 hours): Temp Pulse Resp BP Pulse Ox 87 F L 20 L 20 102/57 L 97 06/23/17 16:31 06/23/17 16:31 06/23/17 16:31 06/23/17 16:31 06/23/17 16:31 Intake and Output: 06/23/17 06/23/17 06:59 18:59 Intake Total 1200 1600 Balance 1200 1600 - Medications Medications: Current Medications Ferric Sodium Gluconate Complex (Ferrlecit) 125 mg IVPB DAILY [facility] Stop: 06/30/17 10:01 Last Admin: 06/23/17 09:59 Dose: 125 mg Sodium Chloride (Sodium Chloride 0.9%) 1,000 mls @ 150 mls/hr IV .Q6H40M [facility] Last Admin: 06/23/17 15:01 Dose: 150 mls/hr Morphine Sulfate (Morphine) 4 mg IVP Q4 PRN PRN Reason: Pain, moderate (4-7) Last Admin: 06/23/17 13:54 Dose: 4 mg Ondansetron HCl (Zofran Inj) 4 mg IVP Q4 PRN PRN Reason: Nausea/Vomiting Last Admin: 06/22/17 12:19 Dose: 4 mg Pantoprazole Sodium (Protonix Inj) 40 mg IVP DAILY [facility] Last Admin: 06/23/17 13:55 Dose: 40 mg Pneumococcal Polyvalent Vaccine (Pneumovax 23 Vaccine) 0.5 ml IM .ONCE ONE Stop: 06/25/17 14:01 Senna/Docusate Sodium (Senokot S 50 Mg-8.6 Mg) 2 tab PO DAILY [facility] - Labs Labs: 06/23/17 11:18 06/23/17 11:18 - Constitutional Appears: Well - Head Exam Head Exam: ATRAUMATIC, NORMAL INSPECTION, NORMOCEPHALIC - Eye Exam Eye Exam: EOMI, Normal appearance, PERRL Pupil Exam: NORMAL ACCOMODATION, PERRL - ENT Exam ENT Exam: Mucous Membranes Moist, Normal Exam - Neck Exam Neck Exam: Full ROM, Normal Inspection. absent: Lymphadenopathy - Respiratory Exam Respiratory Exam: Clear to Ausculation Bilateral, NORMAL BREATHING PATTERN - Cardiovascular Exam Cardiovascular Exam: REGULAR RHYTHM, +S1, +S2. absent: Murmur - GI/Abdominal Exam GI & Abdominal Exam: Soft, Normal Bowel Sounds. absent: Tenderness - Rectal Exam Rectal Exam: Deferred - Extremities Exam Extremities Exam: Full ROM, Normal Capillary Refill, Normal Inspection. absent : Joint Swelling, Pedal Edema - Back Exam Back Exam: NORMAL INSPECTION Assessment and Plan (1) Anemia Status: Acute (2) Colon tumor Status: Acute (3) Gastrointestinal stromal neoplasm Status: Acute (4) Hypokalemia Status: Acute - Assessment and Plan (Free Text) Plan: Patient examined. CT abdomen pelvis suggestive of GIST, with perihepatic and perisplenic fluid. Laboratory investigation shows low potassium. His creatinine at 1.3. Continue pain management. Continue supportive care.
[2017-06-23] MEDS: Docusate-Senna 50 mg-8.6 mg Tab PO SCH (19:39)
[2017-06-24] MEDS: Morphine 4 MG/ML VIAL IVP PRN ×3 (05:33→22:07)
[2017-06-24] MEDS: Sodium Chloride 0.9% 1,000 ML IV SCH ×2 (07:00→11:50)
[2017-06-24 08:10] LABS: INR 1.1
--- NOTE | 2017-06-24 09:02 | CP.PCM.PN ---
<Reed Alonso - Last Filed: 06/24/17 14:37> Subjective - Date & Time of Evaluation Date of Evaluation: 06/24/17 Time of Evaluation: 07:20 - Subjective Subjective: General Surgery Note for Dr. Luna Patient seen and examined at bedside. No acute event overnight. Her pain is still present but improved from admission. Patient was NPO for possible EGD today. Results will determined treatment modality. Patient has no other complaints at this time. Objective - Vital Signs/Intake and Output Vital Signs (last 24 hours): Temp Pulse Resp BP Pulse Ox 97.7 F 78 20 131/78 98 06/24/17 06:00 06/24/17 06:00 06/24/17 06:00 06/24/17 06:00 06/24/17 06:00 Intake and Output: 06/24/17 06/24/17 06:59 18:59 Intake Total 975 Balance 975 - Medications Medications: Current Medications Ferric Sodium Gluconate Complex (Ferrlecit) 125 mg IVPB DAILY [facility] Stop: 06/30/17 10:01 Last Admin: 06/23/17 09:59 Dose: 125 mg Sodium Chloride (Sodium Chloride 0.9%) 1,000 mls @ 150 mls/hr IV .Q6H40M [facility] Last Admin: 06/24/17 07:00 Dose: Not Given Morphine Sulfate (Morphine) 4 mg IVP Q4 PRN PRN Reason: Pain, moderate (4-7) Last Admin: 06/24/17 05:33 Dose: 4 mg Ondansetron HCl (Zofran Inj) 4 mg IVP Q4 PRN PRN Reason: Nausea/Vomiting Last Admin: 06/24/17 05:33 Dose: 4 mg Pantoprazole Sodium (Protonix Inj) 40 mg IVP DAILY [facility] Last Admin: 06/23/17 13:55 Dose: 40 mg Pneumococcal Polyvalent Vaccine (Pneumovax 23 Vaccine) 0.5 ml IM .ONCE ONE Stop: 06/25/17 14:01 Senna/Docusate Sodium (Senokot S 50 Mg-8.6 Mg) 2 tab PO DAILY [facility] Last Admin: 06/23/17 19:39 Dose: 2 tab - Labs Labs: 06/23/17 11:18 06/23/17 11:18 PT 12.0 SECONDS (9.7-12.2) 06/24/17 06:49 INR 1.1 06/24/17 06:49 - Constitutional Appears: No Acute Distress - Head Exam Head Exam: ATRAUMATIC, NORMOCEPHALIC - Eye Exam Eye Exam: Normal appearance - Respiratory Exam Respiratory Exam: NORMAL BREATHING PATTERN - Cardiovascular Exam Cardiovascular Exam: REGULAR RHYTHM - GI/Abdominal Exam GI & Abdominal Exam: Soft, Tenderness (mild). absent: Firm, Guarding, Rigid, Rebound - Extremities Exam Extremities Exam: Normal Capillary Refill - Neurological Exam Neurological Exam: Alert, Awake, Oriented x3 - Psychiatric Exam Psychiatric exam: Normal Affect, Normal Mood - Skin Skin Exam: Dry, Intact, Normal Color, Warm Assessment and Plan - Assessment and Plan (Free Text) Plan: 57F with abdominal pain likely secondary to GIST -f/u EGD report -f/u Heme/Onc recommednations -Will plan intervention accordingly -Discussed with Dr. Jeremy Alonso PGY1 <Elias Luna - Last Filed: 06/25/17 23:28> Objective - Vital Signs/Intake and Output Vital Signs (last 24 hours): Temp Pulse Resp BP Pulse Ox 97.8 F 97 H 20 103/58 L 100 06/25/17 16:00 06/25/17 16:00 06/25/17 16:00 06/25/17 16:00 06/25/17 16:00 Intake and Output: 06/25/17 06/26/17 18:59 06:59 Intake Total 1950 Balance 1950 - Medications Medications: Current Medications Ferric Sodium Gluconate Complex (Ferrlecit) 125 mg IVPB DAILY [facility] Stop: 06/30/17 10:01 Last Admin: 06/25/17 11:25 Dose: 125 mg Magnesium Hydroxide (Milk Of Magnesia) 30 ml PO DAILY [facility] Stop: 06/27/17 18:21 Last Admin: 06/25/17 22:18 Dose: 30 ml Morphine Sulfate (Morphine) 4 mg IVP Q4 PRN PRN Reason: Pain, moderate (4-7) Last Admin: 06/25/17 17:34 Dose: 4 mg Ondansetron HCl (Zofran Inj) 4 mg IVP Q4 PRN PRN Reason: Nausea/Vomiting Last Admin: 06/25/17 17:34 Dose: 4 mg Pantoprazole Sodium (Protonix Inj) 40 mg IVP DAILY [facility] Last Admin: 06/25/17 11:25 Dose: 40 mg Pneumococcal Polyvalent Vaccine (Pneumovax 23 Vaccine) 0.5 ml IM .ONCE ONE Stop: 06/26/17 10:01 Senna/Docusate Sodium (Senokot S 50 Mg-8.6 Mg) 2 tab PO DAILY [facility]IN Last Admin: 06/25/17 11:25 Dose: 2 tab - Labs Labs: 06/25/17 07:31 06/25/17 07:31 PT 12.0 SECONDS (9.7-12.2) 06/24/17 06:49 INR 1.1 06/24/17 06:49 Attending/Attestation - Attestation I have personally seen and examined this patient.: Yes I have fully participated in the care of the patient.: Yes I have reviewed all pertinent clinical information, including history, physical exam and plan: Yes Notes (Text): Pt was seen and examined at bedside Agree with above note and assessment Pt with Recurrent GIST EUS in am Pt is improving clinically NPO,IVF Plan d/w pt in detail Risk and benefit explained in detail.
[2017-06-24] MEDS: Docusate-Senna 50 mg-8.6 mg Tab PO SCH (10:11)
[2017-06-24] MEDS: Ferric Sodium Gluconat Complex 62.5 mg/5 ml Vial IVPB SCH (11:07)
--- NOTE | 2017-06-24 11:33 | CP.PCM.CON ---
<ChantellYolanda - Last Filed: 06/24/17 17:19> History of Present Illness - History of Present Illness History of Present Illness: Yolanda Abdul, PGY1, GI consult Note for Dr Lindsey: CC: nausea/vomiting, abdominal pain 57 years old female, with PMH GIST (diagnosed in ), HTN, asthma, presents for nausea, vomiting and abdominal pain for past 1 month. Pt states that it started after pt started taking Zithromax for a bronchitis episode, as per her PMD. Pt started feeling mid-abdominal, intermittent, achy abdominal pain with associated nausea and vomiting 2-3 episodes of clear, or sometimes, bilious liquid. Pt also c/o decreased appetite, regurgitating food every times she eats , dry heaving, and constipation. Pt usually has a formed BM 2-3X per day. Within the past month, pt has been having hard stools and a BM every 3 days, denies melena or bright red blood. Denies oral lesions, hematemesis, cough, pyrosis, diarrhea, hematochezia, weight loss, dizziness. Pt has had multiple abdominal surgeries for GIST resections in the past. Last GIST removal was small bowel resection in 2006. Last EGD in 2006 (after resection) showed gastritis and hiatal hernia; last colonoscopy in 2007, pt reports "normal results." Denies sick contacts and recent travel. Pt stopped taking Imatinib in 2007 due to side effects, and was lost to follow up with Dr Hill ([facility]) due to insurance issues. In ED, Ct abd pelvis showed rounded, well circumscribed lesion along the lesser curvature of stomach, anastamotic alicia in small and large bowel. This admission, pt also found to be anemic, Hgb 6.8, s/p 2 units prbcs transfusion yesterday, post transfusion hgb 7.8. Dr Hill on consult in house, recommends evaluation of bleeding source and EUS with biopsy of stomach lesion. Pt still nauseous, has regurgitation episodes, but tolerating 20-30% of regular meals. No vomiting episodes within past 24 hours. Last BM 4 days ago. 12 point ROS obtained and unremarkable, except as noted per HPI. PMD Dr Ross PMH: GIST (diagnosed in , has had symptoms since ), HTN, asthma PSH: appendix, BSO, multiple intra-abdominal / intestinal resection of GIST, ventral hernia Meds: MAR reviewed NKDA Social: No ETOH/tobacco/drugs Fhx: GIST - mom, sister, maternal uncle Review of Systems - Review of Systems All systems: reviewed and no additional remarkable complaints except Review of Systems: as per HPI Past Patient History - Past Medical History & Family History Past Medical History?: Yes - Past Social History Smoking Status: Never Smoked - CARDIAC Hx Cardiac Disorders: Yes Hx Hypertension: Yes - PULMONARY Hx Respiratory Disorders: Yes Hx Asthma: Yes - NEUROLOGICAL Hx Neurological Disorder: No - HEENT Hx HEENT Problems: No - RENAL Hx Chronic Kidney Disease: No - ENDOCRINE/METABOLIC Hx Endocrine Disorders: No - HEMATOLOGICAL/ONCOLOGICAL Hx Blood Disorders: Yes Other/Comment: Gastrointestinal Stromal Tumors - INTEGUMENTARY Hx Dermatological Problems: No - MUSCULOSKELETAL/RHEUMATOLOGICAL Hx Musculoskeletal Disorders: Yes Hx Falls: Yes - GASTROINTESTINAL Hx Gastrointestinal Disorders: Yes Other/Comment: Gastrointestinal Stromal Tumors - GENITOURINARY/GYNECOLOGICAL Hx Genitourinary Disorders: No - PSYCHIATRIC Hx Psychophysiologic Disorder: Yes Hx Anxiety: Yes Hx Substance Use: No - SURGICAL HISTORY Hx Surgeries: Yes Hx Appendectomy: Yes - ANESTHESIA Hx Anesthesia: Yes Hx Anesthesia Reactions: Yes (difficulty to arouse after surgery) Meds Allergies/Adverse Reactions: Allergies Allergy/AdvReac Type Severity Reaction Status Date / Time orange juice Allergy Verified 06/21/17 17:05 - Medications Medications: Current Medications Ferric Sodium Gluconate Complex (Ferrlecit) 125 mg IVPB DAILY [facility] Stop: 06/30/17 10:01 Last Admin: 06/23/17 09:59 Dose: 125 mg Sodium Chloride (Sodium Chloride 0.9%) 1,000 mls @ 150 mls/hr IV .Q6H40M [facility] Last Admin: 06/24/17 07:00 Dose: Not Given Morphine Sulfate (Morphine) 4 mg IVP Q4 PRN PRN Reason: Pain, moderate (4-7) Last Admin: 06/24/17 05:33 Dose: 4 mg Ondansetron HCl (Zofran Inj) 4 mg IVP Q4 PRN PRN Reason: Nausea/Vomiting Last Admin: 06/24/17 05:33 Dose: 4 mg Pantoprazole Sodium (Protonix Inj) 40 mg IVP DAILY [facility] Last Admin: 06/24/17 10:11 Dose: 40 mg Pneumococcal Polyvalent Vaccine (Pneumovax 23 Vaccine) 0.5 ml IM .ONCE ONE Stop: 06/25/17 14:01 Senna/Docusate Sodium (Senokot S 50 Mg-8.6 Mg) 2 tab PO DAILY [facility] Last Admin: 06/24/17 10:11 Dose: 2 tab Physical Exam - Constitutional Appears: Non-toxic, Older Than Stated Age - Head Exam Head Exam: ATRAUMATIC, NORMOCEPHALIC - Eye Exam Eye Exam: EOMI, PERRL Pupil Exam: PERRL - ENT Exam ENT Exam: Mucous Membranes Moist - Respiratory Exam Respiratory Exam: Clear to Auscultation Bilateral. absent: Respiratory Distress - Cardiovascular Exam Cardiovascular Exam: RRR, +S1, +S2. absent: Systolic Murmur - GI/Abdominal Exam GI & Abdominal Exam: Normal Bowel Sounds, Soft, Tenderness (TTP in LLQ and mid abdominal area). absent: Distended, Guarding, Mass, Organomegaly, Rigid Additional comments: morbidly obese female, rounded abdomen. - Extremities Exam Extremities exam: Positive for: pedal edema. Negative for: calf tenderness - Back Exam Back exam: NORMAL INSPECTION - Neurological Exam Neurological exam: Alert, Oriented x3 - Psychiatric Exam Psychiatric exam: Normal Affect - Skin Skin Exam: Dry, Normal Color, Warm Results - Vital Signs Recent Vital Signs: Last Vital Signs Temp 97.8 F 06/24/17 08:00 Pulse 75 06/24/17 08:00 Resp 20 06/24/17 08:00 BP 100/65 06/24/17 08:00 Pulse Ox 100 06/24/17 08:00 - Labs Result Diagrams: 06/24/17 12:00 06/24/17 12:00 Labs: Laboratory Results - last 24 hr 06/23/17 06/23/17 06/23/17 11:18 13:46 13:46 Retic Count 5.7 H PT INR Sodium 134 Potassium 3.7 Chloride 101 Carbon Dioxide 26 Anion Gap 11 BUN 22 H Creatinine 1.0 Est GFR ( Amer) > 60 Est GFR (Non-Af Amer) 57 Random Glucose 103 Calcium 7.4 L Ferritin 91.7 Lactate Dehydrogenase 469 Vitamin B12 346 Blood Type Antibody Screen 06/23/17 06/24/17 13:46 06:49 Retic Count PT 12.0 INR 1.1 Sodium Potassium Chloride Carbon Dioxide Anion Gap BUN Creatinine Est GFR ( Amer) Est GFR (Non-Af Amer) Random Glucose Calcium Ferritin Lactate Dehydrogenase Vitamin B12 Blood Type B POSITIVE Antibody Screen Negative Assessment & Plan - Assessment and Plan (Free Text) Assessment: 57 years old female with PMH recurrent GIST, HTN, presents for abdominal pain, nausea, vomiting, anemia: Plan: - 2/2 likely recurrent GIST vs carcinoid tumor vs leiomyoma vs PUD vs schwannoma vs lipoma - Ct abd/pelvis 06/21 shows rounded, well circumscribed area of mixed attenuation with central vascularity along lesser curvature of stomach, likely recurrent GIST. Anastomatic alicia in small and large bowel. Left lobe of liver compressing - focus of mized attenuation 8x6.1x7.3 cm. Multiple well circumscribed rounded areas of decreased attenuation in liver - likely cysts. + periphepatic and perisplenic fluid. - Pt currently tolerating regular diet. Continue to monitor. - Continue with zofran prn, sennokot daily, and Protonix IV daily. - Scheduled for EUS with biopsy tomorrow with Dr Chen. Will send for mitotic rate, KIT, PDGFRA mutation. - Pt will benefit from outpatient colonoscopy. Discussed with GI fellow and attending, Dr Lindsey. Yolanda Abdul, PGY1 - Date & Time Date: 06/24/17 Time: 16:02 <Jerrod Lindsey - Last Filed: 06/24/17 19:28> Meds - Medications Medications: Current Medications Ferric Sodium Gluconate Complex (Ferrlecit) 125 mg IVPB DAILY [facility] Stop: 06/30/17 10:01 Last Admin: 06/24/17 11:07 Dose: 125 mg Sodium Chloride (Sodium Chloride 0.9%) 1,000 mls @ 150 mls/hr IV .Q6H40M [facility] Last Admin: 06/24/17 11:50 Dose: 150 mls/hr Morphine Sulfate (Morphine) 4 mg IVP Q4 PRN PRN Reason: Pain, moderate (4-7) Last Admin: 06/24/17 17:08 Dose: 4 mg Ondansetron HCl (Zofran Inj) 4 mg IVP Q4 PRN PRN Reason: Nausea/Vomiting Last Admin: 06/24/17 13:00 Dose: 4 mg Pantoprazole Sodium (Protonix Inj) 40 mg IVP DAILY [facility] Last Admin: 06/24/17 10:11 Dose: 40 mg Pneumococcal Polyvalent Vaccine (Pneumovax 23 Vaccine) 0.5 ml IM .ONCE ONE Stop: 06/25/17 14:01 Senna/Docusate Sodium (Senokot S 50 Mg-8.6 Mg) 2 tab PO DAILY [facility] Last Admin: 06/24/17 10:11 Dose: 2 tab Results - Vital Signs Recent Vital Signs: Last Vital Signs Temp 98.3 F 06/24/17 16:32 Pulse 86 06/24/17 16:32 Resp 14 06/24/17 16:32 BP 128/78 06/24/17 16:32 Pulse Ox 97 06/24/17 16:06 - Labs Result Diagrams: 06/24/17 12:00 06/24/17 12:00 Labs: Laboratory Results - last 24 hr 06/23/17 06/24/17 06/24/17 13:46 06:49 12:00 WBC 8.9 RBC 2.80 L Hgb 7.8 L Hct 23.6 L MCV 84.1 MCH 28.0 MCHC 33.3 RDW 16.4 H Plt Count 163 MPV 8.0 Neut % (Auto) 80.3 H Lymph % (Auto) 11.2 L Hamlin % (Auto) 5.8 Eos % (Auto) 1.9 Baso % (Auto) 0.8 Neut # 7.1 H Lymph # 1.0 Hamlin # 0.5 Eos # 0.2 Baso # 0.1 PT 12.0 INR 1.1 Sodium Potassium Chloride Carbon Dioxide Anion Gap BUN Creatinine Est GFR ( Amer) Est GFR (Non-Af Amer) Random Glucose Calcium Total Bilirubin AST ALT Alkaline Phosphatase Total Protein Albumin Globulin Albumin/Globulin Ratio Blood Type B POSITIVE Antibody Screen Negative 06/24/17 12:00 WBC RBC Hgb Hct MCV MCH MCHC RDW Plt Count MPV Neut % (Auto) Lymph % (Auto) Hamlin % (Auto) Eos % (Auto) Baso % (Auto) Neut # Lymph # Hamlin # Eos # Baso # PT INR Sodium 131 L Potassium 3.7 Chloride 102 Carbon Dioxide 26 Anion Gap 6 L BUN 18 H Creatinine 0.9 Est GFR ( Amer) > 60 Est GFR (Non-Af Amer) > 60 Random Glucose 97 Calcium 7.3 L Total Bilirubin 0.7 AST 23 ALT 35 Alkaline Phosphatase 149 H Total Protein 6.3 Albumin 2.9 L Globulin 3.4 Albumin/Globulin Ratio 0.8 L Blood Type Antibody Screen Attending/Attestation - Attestation I have personally seen and examined this patient.: Yes I have fully participated in the care of the patient.: Yes I have reviewed all pertinent clinical information: Yes Notes (Text): 06/24/17 19:18 I have seen and examined patient with GI fellow and medical device sales representative. Agree with above documentation with the following additions. In brief, this is a 57 year old female with history of obesity, HTN, asthma, intra abdominal GIST s/p partial large and small bowel resections, who presents to hospital with complaint of persistent abdominal pain, nausea, vomiting for the past one month. She was initially diagnosed with intestinal (location unknown) GIST in the , confirmed diagnosis in 1999 s/p gleevac therapy but was lost to oncology follow up due to insurance related issues. She describes sharp steve- umbilical abdominal pain, non-radiating and associated with multiple episodes of non-bloody emesis. She denies rectal bleeding, or weight loss. Last colonoscopy in 2007 was reportedly normal as per patient. Obesity HTN Asthma History of recurrent GIST s/p partial small and large bowel resection, therapy with Gleevac Anemia Abdominal pain, vomiting - CT imaging reviewed by me showing abnormal mass lesion along lesser curvature of stomach - Liquid diet as tolerated - Continue to monitor H/H s/p PRBC transfusion - Follow up oncology recommendations - Follow up chest CT imaging - Patient will require EUS examination with biopsy to determine whether clinical presentation is consistent with recurrent GIST vs other gastric lesion such as adenocarcinoma, leiomyoma, carcinoid, etc. Will plan for procedure tomorrow with STANLEY Jolley after midnight. Further plan pending results of endoscopic examination and biopsy results.
[2017-06-24 12:17] LABS: BASO # 0.1 K/uL (0.0-0.2); BASO % 0.8 % (0.0-2.0); EOS # 0.2 K/uL (0.0-0.7); EOS % 1.9 % (0.0-4.0); HEMATOCRIT 23.6 % (34.0-47.0); LYMPH % 11.2 % (20.0-40.0); MEAN CELL VOLUME 84.1 fL (81.0-99.0); MEAN CORPUSCULAR HGB CONC 33.3 g/dL (33.0-37.0); MONO # 0.5 K/uL (0.0-0.8); MONO % 5.8 % (0.0-10.0); NRBC % 0.1 % (0.0-2.0); RED CELL DISTRIBUTION WIDTH 16.4 % (11.5-14.5); WHITE BLOOD COUNT 8.9 K/uL (4.8-10.8)
[2017-06-24 12:26] LABS: ALB/GLOB RATIO 0.8 (1.0-2.1); ALKALINE PHOSPHATASE 149 U/L (38-126); ALT/SGPT 35 U/L (9-52); AST/SGOT 23 U/L (14-36); BILIRUBIN,TOTAL 0.7 mg/dL (0.2-1.3); BLOOD UREA NITROGEN 18 mg/dL (7-17); CALCIUM 7.3 mg/dl (8.6-10.4); CARBON DIOXIDE 26 mmol/L (22-30); CHLORIDE 102 mmol/L (98-107); GFR AFRICAN-AMERICAN > 60; GLUCOSE,RANDOM 97 mg/dL (65-105); POTASSIUM 3.7 mmol/L (3.6-5.2); SODIUM 131 mmol/L (132-148); TOTAL PROTEIN 6.3 g/dL (6.3-8.3)
--- NOTE | 2017-06-24 18:51 | CP.PCM.PN ---
Subjective - Date & Time of Evaluation Date of Evaluation: 06/24/17 Time of Evaluation: 09:20 - Subjective Subjective: clinically same Objective - Vital Signs/Intake and Output Vital Signs (last 24 hours): Temp Pulse Resp BP Pulse Ox 98.3 F 86 14 128/78 97 06/24/17 16:32 06/24/17 16:32 06/24/17 16:32 06/24/17 16:32 06/24/17 16:06 Intake and Output: 06/24/17 06/24/17 06:59 18:59 Intake Total 975 1668 Balance 975 1668 - Medications Medications: Current Medications Ferric Sodium Gluconate Complex (Ferrlecit) 125 mg IVPB DAILY [facility] Stop: 06/30/17 10:01 Last Admin: 06/24/17 11:07 Dose: 125 mg Sodium Chloride (Sodium Chloride 0.9%) 1,000 mls @ 150 mls/hr IV .Q6H40M [facility] Last Admin: 06/24/17 11:50 Dose: 150 mls/hr Morphine Sulfate (Morphine) 4 mg IVP Q4 PRN PRN Reason: Pain, moderate (4-7) Last Admin: 06/24/17 17:08 Dose: 4 mg Ondansetron HCl (Zofran Inj) 4 mg IVP Q4 PRN PRN Reason: Nausea/Vomiting Last Admin: 06/24/17 13:00 Dose: 4 mg Pantoprazole Sodium (Protonix Inj) 40 mg IVP DAILY [facility] Last Admin: 06/24/17 10:11 Dose: 40 mg Pneumococcal Polyvalent Vaccine (Pneumovax 23 Vaccine) 0.5 ml IM .ONCE ONE Stop: 06/25/17 14:01 Senna/Docusate Sodium (Senokot S 50 Mg-8.6 Mg) 2 tab PO DAILY [facility] Last Admin: 06/24/17 10:11 Dose: 2 tab - Labs Labs: 06/24/17 12:00 06/24/17 12:00 PT 12.0 SECONDS (9.7-12.2) 06/24/17 06:49 INR 1.1 06/24/17 06:49 - Constitutional Appears: Well - Head Exam Head Exam: ATRAUMATIC, NORMAL INSPECTION, NORMOCEPHALIC - Eye Exam Eye Exam: EOMI, Normal appearance, PERRL Pupil Exam: NORMAL ACCOMODATION, PERRL - ENT Exam ENT Exam: Mucous Membranes Moist, Normal Exam - Neck Exam Neck Exam: Full ROM, Normal Inspection. absent: Lymphadenopathy - Respiratory Exam Respiratory Exam: Decreased Breath Sounds - Cardiovascular Exam Cardiovascular Exam: REGULAR RHYTHM, +S1, +S2 - GI/Abdominal Exam GI & Abdominal Exam: Soft, Diminished Bowel Sounds - Rectal Exam Rectal Exam: Deferred - Extremities Exam Extremities Exam: Full ROM, Normal Capillary Refill, Normal Inspection. absent : Joint Swelling, Pedal Edema - Back Exam Back Exam: NORMAL INSPECTION Assessment and Plan (1) Anemia Status: Acute (2) Colon tumor Status: Acute (3) Gastrointestinal stromal neoplasm Status: Acute (4) Hypokalemia Status: Acute - Assessment and Plan (Free Text) Plan: Patient examined. GI consult done advised liquid diet and on-call reference, chest CT. Patient will require upper GI scoping with biopsy as per GI. Continue pantoprazole. Continue supportive care.
[2017-06-25] MEDS: Sodium Chloride 0.9% 1,000 ML IV SCH (04:37)
[2017-06-25] MEDS: Morphine 4 MG/ML VIAL IVP PRN ×2 (06:56→17:34)
[2017-06-25 07:53] LABS: BASO # 0.1 K/uL (0.0-0.2); BASO % 0.5 % (0.0-2.0); EOS # 0.1 K/uL (0.0-0.7); EOS % 1.1 % (0.0-4.0); HEMATOCRIT 23.5 % (34.0-47.0); LYMPH # 1.3 K/uL (1.0-4.3); LYMPH % 10.7 % (20.0-40.0); MEAN CORPUSCULAR HGB CONC 32.9 g/dL (33.0-37.0); MEAN PLATELET VOLUME 8.4 fL (7.2-11.7); MONO # 0.7 K/uL (0.0-0.8); MONO % 5.8 % (0.0-10.0); NRBC % 0.4 % (0.0-2.0); RED CELL DISTRIBUTION WIDTH 15.7 % (11.5-14.5)
[2017-06-25 07:57] LABS: ALB/GLOB RATIO 1.2 (1.0-2.1); ALKALINE PHOSPHATASE 137 U/L (38-126); ALT/SGPT 23 U/L (9-52); AST/SGOT 22 U/L (14-36); BILIRUBIN,TOTAL 1.2 mg/dL (0.2-1.3); BLOOD UREA NITROGEN 18 mg/dL (7-17); CALCIUM 7.7 mg/dl (8.6-10.4); CARBON DIOXIDE 24 mmol/L (22-30); CHLORIDE 103 mmol/L (98-107); GFR AFRICAN-AMERICAN > 60; GLUCOSE,RANDOM 123 mg/dL (65-105); SODIUM 136 mmol/L (132-148); TOTAL PROTEIN 5.6 g/dL (6.3-8.3)
[2017-06-25] MEDS ORDERED: Rocuronium 10 mg/ml (5 ml) ONE (08:28)
[2017-06-25] MEDS ORDERED: Succinylcholine Chloride 20 mg/ml Syr (5 ml) IV ONE (08:28)
[2017-06-25] MEDS ORDERED: Propofol 10 mg/ml Inj (20 ML) ONE (08:28)
[2017-06-25] MEDS ORDERED: Lactated Ringer's 500 ML IV SCH (09:15)
[2017-06-25] MEDS ORDERED: ePHEDrine 50 mg/ml Inj ONE (09:17)
[2017-06-25] MEDS: Ferric Sodium Gluconat Complex 62.5 mg/5 ml Vial IVPB SCH (11:25)
[2017-06-25] MEDS: Docusate-Senna 50 mg-8.6 mg Tab PO SCH (11:25)
[2017-06-25] MEDS ORDERED: Pneumococcal 23-Valent Vaccine IM ONE (14:00)
--- NOTE | 2017-06-25 17:49 | CP.PCM.PN ---
<KojoKirsty - Last Filed: 06/25/17 17:46> Subjective - Date & Time of Evaluation Date of Evaluation: 06/25/17 Time of Evaluation: 07:00 - Subjective Subjective: General Surgery Dr. Luna Pt S&E @bedside. NAEO. pt admits to abd pain and nausea but denies F/C, vomiting. pt is NPO for EUS today. Objective - Vital Signs/Intake and Output Vital Signs (last 24 hours): Temp Pulse Resp BP Pulse Ox 97.8 F 97 H 20 103/58 L 100 06/25/17 16:00 06/25/17 16:00 06/25/17 16:00 06/25/17 16:00 06/25/17 16:00 Intake and Output: 06/25/17 06/25/17 06:59 18:59 Intake Total 1950 Balance 1950 - Medications Medications: Current Medications Ferric Sodium Gluconate Complex (Ferrlecit) 125 mg IVPB DAILY [facility] Stop: 06/30/17 10:01 Last Admin: 06/25/17 11:25 Dose: 125 mg Morphine Sulfate (Morphine) 4 mg IVP Q4 PRN PRN Reason: Pain, moderate (4-7) Last Admin: 06/25/17 17:34 Dose: 4 mg Ondansetron HCl (Zofran Inj) 4 mg IVP Q4 PRN PRN Reason: Nausea/Vomiting Last Admin: 06/25/17 17:34 Dose: 4 mg Pantoprazole Sodium (Protonix Inj) 40 mg IVP DAILY [facility] Last Admin: 06/25/17 11:25 Dose: 40 mg Pneumococcal Polyvalent Vaccine (Pneumovax 23 Vaccine) 0.5 ml IM .ONCE ONE Stop: 06/26/17 10:01 Senna/Docusate Sodium (Senokot S 50 Mg-8.6 Mg) 2 tab PO DAILY [facility] Last Admin: 06/25/17 11:25 Dose: 2 tab - Labs Labs: 06/25/17 07:31 06/25/17 07:31 PT 12.0 SECONDS (9.7-12.2) 06/24/17 06:49 INR 1.1 06/24/17 06:49 - Constitutional Appears: Non-toxic, No Acute Distress - Head Exam Head Exam: NORMAL INSPECTION - Eye Exam Eye Exam: Normal appearance - ENT Exam ENT Exam: Mucous Membranes Moist - Respiratory Exam Respiratory Exam: NORMAL BREATHING PATTERN. absent: Accessory Muscle Use, Respiratory Distress - Cardiovascular Exam Cardiovascular Exam: absent: Bradycardia, Tachycardia - GI/Abdominal Exam GI & Abdominal Exam: Soft, Tenderness. absent: Distended (obese), Guarding, Rigid, Rebound - Back Exam Back Exam: NORMAL INSPECTION - Neurological Exam Neurological Exam: Alert, Awake, Oriented x3 - Psychiatric Exam Psychiatric exam: Normal Affect, Normal Mood - Skin Skin Exam: Dry, Intact, Normal Color, Warm Assessment and Plan - Assessment and Plan (Free Text) Assessment: 57 y/o F w/ abd pain likely secondary to GIST - EUS today --> found multiple masses - f/u gastric Bx - f/u Heme/Onc recommendations - recommending Liver Bx - cont medical management Pt discussed with Dr. Jeremy Varma DO PGY2 <Elias Luna - Last Filed: 06/25/17 23:36> Objective - Vital Signs/Intake and Output Vital Signs (last 24 hours): Temp Pulse Resp BP Pulse Ox 97.8 F 97 H 20 103/58 L 100 06/25/17 16:00 06/25/17 16:00 06/25/17 16:00 06/25/17 16:00 06/25/17 16:00 Intake and Output: 06/25/17 06/26/17 18:59 06:59 Intake Total 1950 Balance 1950 - Medications Medications: Current Medications Ferric Sodium Gluconate Complex (Ferrlecit) 125 mg IVPB DAILY [facility] Stop: 06/30/17 10:01 Last Admin: 06/25/17 11:25 Dose: 125 mg Magnesium Hydroxide (Milk Of Magnesia) 30 ml PO DAILY [facility] Stop: 06/27/17 18:21 Last Admin: 06/25/17 22:18 Dose: 30 ml Morphine Sulfate (Morphine) 4 mg IVP Q4 PRN PRN Reason: Pain, moderate (4-7) Last Admin: 06/25/17 17:34 Dose: 4 mg Ondansetron HCl (Zofran Inj) 4 mg IVP Q4 PRN PRN Reason: Nausea/Vomiting Last Admin: 06/25/17 17:34 Dose: 4 mg Pantoprazole Sodium (Protonix Inj) 40 mg IVP DAILY [facility] Last Admin: 06/25/17 11:25 Dose: 40 mg Pneumococcal Polyvalent Vaccine (Pneumovax 23 Vaccine) 0.5 ml IM .ONCE ONE Stop: 06/26/17 10:01 Senna/Docusate Sodium (Senokot S 50 Mg-8.6 Mg) 2 tab PO DAILY [facility] Last Admin: 06/25/17 11:25 Dose: 2 tab - Labs Labs: 06/25/17 07:31 06/25/17 07:31 PT 12.0 SECONDS (9.7-12.2) 06/24/17 06:49 INR 1.1 06/24/17 06:49 Attending/Attestation - Attestation I have personally seen and examined this patient.: Yes I have fully participated in the care of the patient.: Yes I have reviewed all pertinent clinical information, including history, physical exam and plan: Yes Notes (Text): Pt was seen and examined at bedside Agree with above note and assessment Pt is s/p EUS and Biopsy F/u path on wednesday Clear liquid diet c.w current mx Plan d/w pt in detail Risk and benefit explained in detail.
--- NOTE | 2017-06-25 18:18 | CP.PCM.PN ---
Subjective - Date & Time of Evaluation Date of Evaluation: 06/25/17 Time of Evaluation: 18:11 - Subjective Subjective: The patient is still nauseous, vomiting, poor appetite, still constipated. Objective - Vital Signs/Intake and Output Vital Signs (last 24 hours): Temp Pulse Resp BP Pulse Ox 97.8 F 97 H 20 103/58 L 100 06/25/17 16:00 06/25/17 16:00 06/25/17 16:00 06/25/17 16:00 06/25/17 16:00 Intake and Output: 06/25/17 06/25/17 06:59 18:59 Intake Total 1950 Balance 1950 - Medications Medications: Current Medications Ferric Sodium Gluconate Complex (Ferrlecit) 125 mg IVPB DAILY [facility] Stop: 06/30/17 10:01 Last Admin: 06/25/17 11:25 Dose: 125 mg Morphine Sulfate (Morphine) 4 mg IVP Q4 PRN PRN Reason: Pain, moderate (4-7) Last Admin: 06/25/17 17:34 Dose: 4 mg Ondansetron HCl (Zofran Inj) 4 mg IVP Q4 PRN PRN Reason: Nausea/Vomiting Last Admin: 06/25/17 17:34 Dose: 4 mg Pantoprazole Sodium (Protonix Inj) 40 mg IVP DAILY [facility] Last Admin: 06/25/17 11:25 Dose: 40 mg Pneumococcal Polyvalent Vaccine (Pneumovax 23 Vaccine) 0.5 ml IM .ONCE ONE Stop: 06/26/17 10:01 Senna/Docusate Sodium (Senokot S 50 Mg-8.6 Mg) 2 tab PO DAILY [facility] Last Admin: 06/25/17 11:25 Dose: 2 tab - Labs Labs: 06/25/17 07:31 06/25/17 07:31 PT 12.0 SECONDS (9.7-12.2) 06/24/17 06:49 INR 1.1 06/24/17 06:49 Assessment and Plan (1) Gastrointestinal stromal neoplasm Assessment & Plan: 57 yo patient with severe anemia, with no obvious bleeding, clinical symptoms consistent with recurrent GIST. The patient is scheduled for a dedicated CAT scan of the liver, which will help determine if the liver mass is metastatic GIST or "cyst". Have discussed with patient about surgery most likely not a primary option, because of the extent of disease. Await biopsy and CATscan results . Will start the patient on low dose Imatinib(200 mg) if biopsy shows GIST. No transfusions for now, severe anemia most likely secondary to neoplasm( anemia of chronic disease). Status: Acute
--- NOTE | 2017-06-25 19:57 | CP.PCM.PN ---
Subjective - Date & Time of Evaluation Date of Evaluation: 06/25/17 Time of Evaluation: 09:40 - Subjective Subjective: clinically same Objective - Vital Signs/Intake and Output Vital Signs (last 24 hours): Temp Pulse Resp BP Pulse Ox 97.8 F 97 H 20 103/58 L 100 06/25/17 16:00 06/25/17 16:00 06/25/17 16:00 06/25/17 16:00 06/25/17 16:00 Intake and Output: 06/25/17 06/26/17 18:59 06:59 Intake Total 1950 Balance 1950 - Medications Medications: Current Medications Ferric Sodium Gluconate Complex (Ferrlecit) 125 mg IVPB DAILY [facility] Stop: 06/30/17 10:01 Last Admin: 06/25/17 11:25 Dose: 125 mg Magnesium Hydroxide (Milk Of Magnesia) 30 ml PO DAILY [facility] Stop: 06/27/17 18:21 Morphine Sulfate (Morphine) 4 mg IVP Q4 PRN PRN Reason: Pain, moderate (4-7) Last Admin: 06/25/17 17:34 Dose: 4 mg Ondansetron HCl (Zofran Inj) 4 mg IVP Q4 PRN PRN Reason: Nausea/Vomiting Last Admin: 06/25/17 17:34 Dose: 4 mg Pantoprazole Sodium (Protonix Inj) 40 mg IVP DAILY [facility] Last Admin: 06/25/17 11:25 Dose: 40 mg Pneumococcal Polyvalent Vaccine (Pneumovax 23 Vaccine) 0.5 ml IM .ONCE ONE Stop: 06/26/17 10:01 Senna/Docusate Sodium (Senokot S 50 Mg-8.6 Mg) 2 tab PO DAILY [facility] Last Admin: 06/25/17 11:25 Dose: 2 tab - Labs Labs: 06/25/17 07:31 06/25/17 07:31 PT 12.0 SECONDS (9.7-12.2) 06/24/17 06:49 INR 1.1 06/24/17 06:49 - Constitutional Appears: Well - Head Exam Head Exam: ATRAUMATIC, NORMAL INSPECTION, NORMOCEPHALIC - Eye Exam Eye Exam: EOMI, Normal appearance, PERRL Pupil Exam: NORMAL ACCOMODATION, PERRL - ENT Exam ENT Exam: Mucous Membranes Moist, Normal Exam - Neck Exam Neck Exam: Full ROM, Normal Inspection. absent: Lymphadenopathy - Respiratory Exam Respiratory Exam: Decreased Breath Sounds - Cardiovascular Exam Cardiovascular Exam: REGULAR RHYTHM, +S1, +S2 - GI/Abdominal Exam GI & Abdominal Exam: Soft, Diminished Bowel Sounds - Rectal Exam Rectal Exam: Deferred Assessment and Plan (1) Anemia Status: Acute (2) Colon tumor Status: Acute (3) Gastrointestinal stromal neoplasm Status: Acute (4) Hypokalemia Status: Acute - Assessment and Plan (Free Text) Plan: Patient examined. Abdominal pain and nausea present. No episode of vomiting. Continue pantoprazole. Continue pain management. Continue supportive care.
[2017-06-25] MEDS: Magnesium Hydroxide Susp 30 ml UD PO SCH (22:18)
--- NOTE | 2017-06-26 08:04 | CP.PCM.PN ---
<Jessie Garrison - Last Filed: 06/26/17 08:41> Subjective - Date & Time of Evaluation Date of Evaluation: 06/26/17 Time of Evaluation: 07:15 - Subjective Subjective: GI Fellow PGY4 Progress Note Pt seen and evaluated at bedside, pt reports having nausea and one episode of vomiting last night. She still has abdominal pain that has not changed since admission. Pt is s/p EUS and reports bloating and gas and is having flatus but no BM since Wednesday. ROS: A 12pt ROS was negative except as above. Objective - Vital Signs/Intake and Output Vital Signs (last 24 hours): Temp Pulse Resp BP Pulse Ox 98 F 91 H 20 92/60 L 100 06/25/17 23:25 06/25/17 23:25 06/25/17 23:25 06/25/17 23:25 06/25/17 23:25 - Medications Medications: Current Medications Ferric Sodium Gluconate Complex (Ferrlecit) 125 mg IVPB DAILY [facility] Stop: 06/30/17 10:01 Last Admin: 06/25/17 11:25 Dose: 125 mg Magnesium Hydroxide (Milk Of Magnesia) 30 ml PO DAILY [facility] Stop: 06/27/17 18:21 Last Admin: 06/25/17 22:18 Dose: 30 ml Morphine Sulfate (Morphine) 4 mg IVP Q4 PRN PRN Reason: Pain, moderate (4-7) Last Admin: 06/25/17 17:34 Dose: 4 mg Ondansetron HCl (Zofran Inj) 4 mg IVP Q4 PRN PRN Reason: Nausea/Vomiting Last Admin: 06/26/17 05:02 Dose: 4 mg Pantoprazole Sodium (Protonix Inj) 40 mg IVP DAILY [facility] Last Admin: 06/25/17 11:25 Dose: 40 mg Pneumococcal Polyvalent Vaccine (Pneumovax 23 Vaccine) 0.5 ml IM .ONCE ONE Stop: 06/26/17 10:01 Polyethylene Glycol (Miralax) 17 gm PO BID [facility] Senna/Docusate Sodium (Senokot S 50 Mg-8.6 Mg) 2 tab PO DAILY [facility] Last Admin: 06/25/17 11:25 Dose: 2 tab - Labs Labs: 06/25/17 07:31 06/25/17 07:31 PT 12.0 SECONDS (9.7-12.2) 06/24/17 06:49 INR 1.1 06/24/17 06:49 - Constitutional Appears: Non-toxic, No Acute Distress - Head Exam Head Exam: ATRAUMATIC, NORMAL INSPECTION, NORMOCEPHALIC - Eye Exam Eye Exam: EOMI, Normal appearance, PERRL Pupil Exam: PERRL - ENT Exam ENT Exam: Mucous Membranes Moist, Normal Exam - Neck Exam Neck Exam: Full ROM, Normal Inspection - Respiratory Exam Respiratory Exam: Clear to Ausculation Bilateral, NORMAL BREATHING PATTERN - Cardiovascular Exam Cardiovascular Exam: REGULAR RHYTHM - GI/Abdominal Exam GI & Abdominal Exam: Soft, Tenderness, Normal Bowel Sounds. 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 1. History of GIST s/p partial small and large bowel resection and therapy with Gleevac 2. Anemia 3. Abdominal pain, vomiting 4. Abnormal mass lesion in stomach s/p EUS and biopsy 5. Constipation Plan: -Continue supportive care with anti-emetics and pain control - Continue to monitor H/H s/p PRBC transfusion - Will order CT Triple phase Abdomen - Bowel regimen with Miralax BID - Change to po PPI daily - s/p EUS examination with biopsy of stomach module into Layer 4/ muscularis propriya to determine GIST, adenocarcinoma, leiomyoma, or carcinoid - Will continue to follow and make further recommendations pending biopsy results <Jerrod Lindsey - Last Filed: 06/26/17 09:31> Objective - Vital Signs/Intake and Output Vital Signs (last 24 hours): Temp Pulse Resp BP Pulse Ox 98.1 F 93 H 18 103/66 100 06/26/17 07:00 06/26/17 07:00 06/26/17 07:00 06/26/17 07:00 06/26/17 07:00 - Medications Medications: Current Medications Ferric Sodium Gluconate Complex (Ferrlecit) 125 mg IVPB DAILY [facility] Stop: 06/30/17 10:01 Last Admin: 06/26/17 09:11 Dose: 125 mg Magnesium Hydroxide (Milk Of Magnesia) 30 ml PO DAILY [facility] Stop: 06/27/17 18:21 Last Admin: 06/26/17 09:10 Dose: 30 ml Morphine Sulfate (Morphine) 4 mg IVP Q4 PRN PRN Reason: Pain, moderate (4-7) Last Admin: 06/25/17 17:34 Dose: 4 mg Ondansetron HCl (Zofran Inj) 4 mg IVP Q4 PRN PRN Reason: Nausea/Vomiting Last Admin: 06/26/17 09:20 Dose: 4 mg Pantoprazole Sodium (Protonix Inj) 40 mg IVP DAILY [facility] Last Admin: 06/26/17 09:10 Dose: 40 mg Pneumococcal Polyvalent Vaccine (Pneumovax 23 Vaccine) 0.5 ml IM .ONCE ONE Stop: 06/26/17 10:01 Polyethylene Glycol (Miralax) 17 gm PO BID [facility] Last Admin: 06/26/17 09:10 Dose: 17 gm Senna/Docusate Sodium (Senokot S 50 Mg-8.6 Mg) 2 tab PO DAILY [facility] Last Admin: 06/26/17 09:11 Dose: 2 tab - Labs Labs: 06/25/17 07:31 06/25/17 07:31 PT 12.0 SECONDS (9.7-12.2) 06/24/17 06:49 INR 1.1 06/24/17 06:49 Attending/Attestation - Attestation I have personally seen and examined this patient.: Yes I have fully participated in the care of the patient.: Yes I have reviewed all pertinent clinical information, including history, physical exam and plan: Yes Notes (Text): 06/26/17 09:27 I have seen and examined patient with GI fellow. No acute events overnight, she is seen resting in bed, complains of ongoing profound nausea without vomiting. She also reports abdominal pain/distention and has not had a bowel movement for past 5 days. Obesity, morbid HTN History of intra-abdominal GIST s/p partial large and small bowel resections Anemia s/p EGD/EUS yesterday showing multiple gastric lesions with sonographic features suggestive of GIST s/p FNB - Diet as tolerated - Anti-emetic therapy PRN - Administer mineral oil enema today along with oral miralax for treatment of constipation - CT triple phase liver ordered for further evaluation, follow up results - Given multiple sites of recurrent GIST lesions, patient is likely non- surgical candidate and will benefit from systemic Imatinib therapy, follow up oncology recommendations - Await EUS biopsy results - Will continue to monitor clinical course
[2017-06-26] MEDS: POLYETHYLENE GLYCOL 3350 17 GM/Dose PACKET PO SCH ×2 (09:10→18:45)
[2017-06-26] MEDS: Magnesium Hydroxide Susp 30 ml UD PO SCH (09:10)
[2017-06-26] MEDS: Ferric Sodium Gluconat Complex 62.5 mg/5 ml Vial IVPB SCH (09:11)
[2017-06-26] MEDS: Docusate-Senna 50 mg-8.6 mg Tab PO SCH (09:11)
[2017-06-26] MEDS ORDERED: Pneumococcal 23-Valent Vaccine IM ONE (10:00)
[2017-06-26] MEDS ORDERED: Iodixanol 320 mg/ml 150 ml Bottle IV ONE (14:38)
[2017-06-26] MEDS: Morphine 4 MG/ML VIAL IVP PRN (14:58)
--- NOTE | 2017-06-26 18:34 | CP.PCM.PN ---
Subjective - Date & Time of Evaluation Date of Evaluation: 06/26/17 Time of Evaluation: 10:40 - Subjective Subjective: clinically same Objective - Vital Signs/Intake and Output Vital Signs (last 24 hours): Temp Pulse Resp BP Pulse Ox 98.5 F 95 H 20 91/49 L 100 06/26/17 17:23 06/26/17 17:23 06/26/17 17:23 06/26/17 17:23 06/26/17 17:23 Intake and Output: 06/26/17 06/26/17 06:59 18:59 Intake Total 580 Balance 580 - Medications Medications: Current Medications Ferric Sodium Gluconate Complex (Ferrlecit) 125 mg IVPB DAILY [facility] Stop: 06/30/17 10:01 Last Admin: 06/26/17 09:11 Dose: 125 mg Magnesium Hydroxide (Milk Of Magnesia) 30 ml PO DAILY [facility] Stop: 06/27/17 18:21 Last Admin: 06/26/17 09:10 Dose: 30 ml Morphine Sulfate (Morphine) 4 mg IVP Q4 PRN PRN Reason: Pain, moderate (4-7) Last Admin: 06/26/17 14:58 Dose: 4 mg Ondansetron HCl (Zofran Inj) 4 mg IVP Q4 PRN PRN Reason: Nausea/Vomiting Last Admin: 06/26/17 14:58 Dose: 4 mg Pantoprazole Sodium (Protonix Inj) 40 mg IVP DAILY [facility] Last Admin: 06/26/17 09:10 Dose: 40 mg Polyethylene Glycol (Miralax) 17 gm PO BID [facility] Last Admin: 06/26/17 09:10 Dose: 17 gm Senna/Docusate Sodium (Senokot S 50 Mg-8.6 Mg) 2 tab PO DAILY [facility] Last Admin: 06/26/17 09:11 Dose: 2 tab - Labs Labs: 06/25/17 07:31 06/25/17 07:31 PT 12.0 SECONDS (9.7-12.2) 06/24/17 06:49 INR 1.1 06/24/17 06:49 - Constitutional Appears: Well - Head Exam Head Exam: ATRAUMATIC, NORMAL INSPECTION, NORMOCEPHALIC - Eye Exam Eye Exam: EOMI, Normal appearance, PERRL Pupil Exam: NORMAL ACCOMODATION, PERRL - ENT Exam ENT Exam: Mucous Membranes Moist, Normal Exam - Neck Exam Neck Exam: Full ROM, Normal Inspection. absent: Lymphadenopathy - Respiratory Exam Respiratory Exam: Clear to Ausculation Bilateral, NORMAL BREATHING PATTERN - Cardiovascular Exam Cardiovascular Exam: REGULAR RHYTHM, +S1, +S2. absent: Murmur - GI/Abdominal Exam GI & Abdominal Exam: Soft, Normal Bowel Sounds. absent: Tenderness - Rectal Exam Rectal Exam: Deferred Assessment and Plan (1) Anemia Status: Acute (2) Colon tumor Status: Acute (3) Gastrointestinal stromal neoplasm Status: Acute (4) Hypokalemia Status: Acute - Assessment and Plan (Free Text) Plan: Patient examined. Abdominal pain present. Continue pantoprazole and supportive treatment.
--- NOTE | 2017-06-26 22:44 | CP.PCM.PN ---
<KavitaJak - Last Filed: 06/26/17 22:42> Subjective - Date & Time of Evaluation Date of Evaluation: 06/26/17 Time of Evaluation: 11:40 - Subjective Subjective: Surgery Progress note. Dr. Luna Pt seen and examined at bedside. No acute events overnight. Does report some Nausea and one episode of vomiting. +Flatus. Denies F/C. No new complaints. Objective - Vital Signs/Intake and Output Vital Signs (last 24 hours): Temp Pulse Resp BP Pulse Ox 98.5 F 95 H 20 90/55 L 100 06/26/17 17:23 06/26/17 17:23 06/26/17 17:23 06/26/17 22:34 06/26/17 17:23 Intake and Output: 06/26/17 06/27/17 18:59 06:59 Intake Total 580 Balance 580 - Medications Medications: Current Medications Ferric Sodium Gluconate Complex (Ferrlecit) 125 mg IVPB DAILY [facility] Stop: 06/30/17 10:01 Last Admin: 06/26/17 09:11 Dose: 125 mg Magnesium Hydroxide (Milk Of Magnesia) 30 ml PO DAILY [facility] Stop: 06/27/17 18:21 Last Admin: 06/26/17 09:10 Dose: 30 ml Morphine Sulfate (Morphine) 4 mg IVP Q4 PRN PRN Reason: Pain, moderate (4-7) Last Admin: 06/26/17 14:58 Dose: 4 mg Ondansetron HCl (Zofran Inj) 4 mg IVP Q4 PRN PRN Reason: Nausea/Vomiting Last Admin: 06/26/17 21:46 Dose: 4 mg Pantoprazole Sodium (Protonix Inj) 40 mg IVP DAILY [facility] Last Admin: 06/26/17 09:10 Dose: 40 mg Polyethylene Glycol (Miralax) 17 gm PO BID [facility] Last Admin: 06/26/17 18:45 Dose: 17 gm Senna/Docusate Sodium (Senokot S 50 Mg-8.6 Mg) 2 tab PO DAILY [facility] Last Admin: 06/26/17 09:11 Dose: 2 tab - Labs Labs: 06/25/17 07:31 06/25/17 07:31 PT 12.0 SECONDS (9.7-12.2) 06/24/17 06:49 INR 1.1 06/24/17 06:49 - Constitutional Appears: Non-toxic, No Acute Distress - Head Exam Head Exam: ATRAUMATIC, NORMAL INSPECTION, NORMOCEPHALIC - Eye Exam Eye Exam: EOMI - ENT Exam ENT Exam: Mucous Membranes Moist - Respiratory Exam Respiratory Exam: NORMAL BREATHING PATTERN. absent: Accessory Muscle Use, Respiratory Distress - Cardiovascular Exam Cardiovascular Exam: RRR, +S1, +S2. absent: JVD - GI/Abdominal Exam GI & Abdominal Exam: Soft. absent: Distended, Firm, Rigid, Rebound Additional comments: diffuse tenderness to palpation - Neurological Exam Neurological Exam: Alert, Awake, Oriented x3 - Skin Skin Exam: Dry, Intact, Normal Color, Warm Assessment and Plan - Assessment and Plan (Free Text) Assessment: 57yo F with recurrent GIST, here with abdominal pain. S/p EUS on 06/25 - f/u GI recs - f/u path Gastric Bx - f/u heme/onc recs - recommend liver bx - ADAT Further recs as per Dr. Jeremy Walls PGY1 surgery pager: [phone] <Elias Luna - Last Filed: 06/27/17 22:36> Objective - Vital Signs/Intake and Output Vital Signs (last 24 hours): Temp Pulse Resp BP Pulse Ox 98.8 F 98 H 20 115/68 100 06/27/17 21:28 06/27/17 21:28 06/27/17 21:28 06/27/17 21:28 06/27/17 15:40 Intake and Output: 06/27/17 06/28/17 18:59 06:59 Intake Total 1025 850 Output Total 600 Balance 1025 250 - Medications Medications: Current Medications Ferric Sodium Gluconate Complex (Ferrlecit) 125 mg IVPB DAILY [facility] Stop: 06/30/17 10:01 Last Admin: 06/27/17 10:41 Dose: 125 mg Mineral Oil (Fleet Mineral Oil Enema) 135 ml RC DAILY PRN PRN Reason: Constipation Morphine Sulfate (Morphine) 4 mg IVP Q4 PRN PRN Reason: Pain, moderate (4-7) Last Admin: 06/27/17 12:53 Dose: 4 mg Ondansetron HCl (Zofran Inj) 4 mg IVP Q4 PRN PRN Reason: Nausea/Vomiting Last Admin: 06/27/17 19:47 Dose: 4 mg Pantoprazole Sodium (Protonix Inj) 40 mg IVP DAILY [facility] Last Admin: 06/27/17 10:40 Dose: 40 mg Polyethylene Glycol (Miralax) 17 gm PO BID [facility] Last Admin: 06/27/17 19:05 Dose: Not Given Senna/Docusate Sodium (Senokot S 50 Mg-8.6 Mg) 2 tab PO DAILY [facility] Last Admin: 06/27/17 10:41 Dose: 2 tab - Labs Labs: 06/27/17 10:59 06/27/17 07:24 PT 12.0 SECONDS (9.7-12.2) 06/24/17 06:49 INR 1.1 06/24/17 06:49 Attending/Attestation - Attestation I have personally seen and examined this patient.: Yes I have fully participated in the care of the patient.: Yes I have reviewed all pertinent clinical information, including history, physical exam and plan: Yes Notes (Text): Pt was seen and examined at bedside Agree with above note and assessment Pt with recurrent GIST Path report pending No need for surgical intervention at present Clear liquid diet. c.w current mx Plan d.w pt in detail. Risk and benefit explained in detail.
[2017-06-27] MEDS: Morphine 4 MG/ML VIAL IVP PRN ×3 (03:57→22:57)
[2017-06-27 07:46] LABS: HEMATOCRIT 13.4 % (34.0-47.0); MONO # 0.7 K/uL (0.0-0.8)
[2017-06-27 07:52] LABS: BASO % 0.2 % (0.0-2.0); EOS % 0.2 % (0.0-4.0); LYMPH # 1.1 K/uL (1.0-4.3); LYMPH % 9.6 % (20.0-40.0); MEAN CORPUSCULAR HEMOGLOBIN 28.5 pg (27.0-31.0); MEAN CORPUSCULAR HGB CONC 32.6 g/dL (33.0-37.0); MEAN PLATELET VOLUME 8.3 fL (7.2-11.7); MONO % 5.5 % (0.0-10.0); NRBC % 1.8 % (0.0-2.0); PLATELET COUNT 189 K/uL (130-400)
[2017-06-27 07:54] LABS: MEAN CELL VOLUME 87.4 fL (81.0-99.0)
[2017-06-27 08:07] LABS: ALB/GLOB RATIO 1.2 (1.0-2.1); ALKALINE PHOSPHATASE 210 U/L (38-126); ALT/SGPT 40 U/L (9-52); AST/SGOT 29 U/L (14-36); BILIRUBIN,TOTAL 0.6 mg/dL (0.2-1.3); BLOOD UREA NITROGEN 25 mg/dL (7-17); CALCIUM 7.4 mg/dl (8.6-10.4); CARBON DIOXIDE 27 mmol/L (22-30); CHLORIDE 102 mmol/L (98-107); GFR AFRICAN-AMERICAN > 60; GLUCOSE,RANDOM 121 mg/dL (65-105); POTASSIUM 4.5 mmol/L (3.6-5.2); SODIUM 135 mmol/L (132-148); TOTAL PROTEIN 5.1 g/dL (6.3-8.3)
--- NOTE | 2017-06-27 08:28 | CP.PCM.PN ---
<Jessie Garrison - Last Filed: 06/27/17 09:39> Subjective - Date & Time of Evaluation Date of Evaluation: 06/27/17 Time of Evaluation: 07:00 - Subjective Subjective: GI Fellow PGY4 Progress Note Pt seen and evaluated at bedside, pt reports having nausea but improved since yesterday. Abdominal pain that is better. Pt is s/p EUS and reports bloating and gas and is having flatus but no BM since Wednesday. Per nursing, pt refused enema yesterday, is agreeable to try enema today. ROS: A 12pt ROS was negative except as above. Objective - Vital Signs/Intake and Output Vital Signs (last 24 hours): Temp Pulse Resp BP Pulse Ox 98.3 F 104 H 20 114/61 95 06/27/17 03:55 06/27/17 03:55 06/27/17 03:55 06/27/17 03:55 06/27/17 03:55 - Medications Medications: Current Medications Ferric Sodium Gluconate Complex (Ferrlecit) 125 mg IVPB DAILY [facility] Stop: 06/30/17 10:01 Last Admin: 06/26/17 09:11 Dose: 125 mg Magnesium Hydroxide (Milk Of Magnesia) 30 ml PO DAILY [facility] Stop: 06/27/17 18:21 Last Admin: 06/26/17 09:10 Dose: 30 ml Mineral Oil (Fleet Mineral Oil Enema) 135 ml RC PRN PRN PRN Reason: Constipation Morphine Sulfate (Morphine) 4 mg IVP Q4 PRN PRN Reason: Pain, moderate (4-7) Last Admin: 06/27/17 03:57 Dose: 4 mg Ondansetron HCl (Zofran Inj) 4 mg IVP Q4 PRN PRN Reason: Nausea/Vomiting Last Admin: 06/26/17 21:46 Dose: 4 mg Pantoprazole Sodium (Protonix Inj) 40 mg IVP DAILY [facility] Last Admin: 06/26/17 09:10 Dose: 40 mg Polyethylene Glycol (Miralax) 17 gm PO BID [facility] Last Admin: 06/26/17 18:45 Dose: 17 gm Senna/Docusate Sodium (Senokot S 50 Mg-8.6 Mg) 2 tab PO DAILY [facility] Last Admin: 06/26/17 09:11 Dose: 2 tab - Labs Labs: 06/27/17 07:24 06/27/17 07:24 PT 12.0 SECONDS (9.7-12.2) 06/24/17 06:49 INR 1.1 06/24/17 06:49 - Constitutional Appears: Non-toxic, No Acute Distress - Head Exam Head Exam: ATRAUMATIC, NORMAL INSPECTION, NORMOCEPHALIC - Eye Exam Eye Exam: EOMI, Normal appearance, PERRL Pupil Exam: PERRL - ENT Exam ENT Exam: Mucous Membranes Moist, Normal Exam - Neck Exam Neck Exam: Full ROM, Normal Inspection - Respiratory Exam Respiratory Exam: Clear to Ausculation Bilateral, NORMAL BREATHING PATTERN - Cardiovascular Exam Cardiovascular Exam: REGULAR RHYTHM - GI/Abdominal Exam GI & Abdominal Exam: Distended, Soft, Tenderness, Normal Bowel Sounds. 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 1. History of GIST s/p partial small and large bowel resection and therapy with Gleevac 2. Anemia 3. Abdominal pain, vomiting 4. Abnormal mass lesion in stomach s/p EUS and biopsy 5. Constipation Plan: -Continue supportive care with anti-emetics and pain control - Continue to monitor H/H s/p PRBC transfusion - H/H low this am, no GI bleeding, probably a lab error will repeat CBC - CT Triple phase Abdomen pending read - Bowel regimen with Miralax BID will order fleet mineral oil enema prn - Continue po PPI daily - s/p EUS examination with biopsy of stomach module into Layer 4/ muscularis propriya to determine GIST, adenocarcinoma, leiomyoma, or carcinoid - Pt will mostly likely need treatment with Gleevac vs surgical intervention, further recs per Oncology/Surgery - Will continue to follow and make further recommendations pending biopsy results <Jerrod Lindsey - Last Filed: 06/27/17 09:46> Objective - Vital Signs/Intake and Output Vital Signs (last 24 hours): Temp Pulse Resp BP Pulse Ox 98.3 F 96 H 20 97/61 L 100 06/27/17 08:05 06/27/17 08:05 06/27/17 08:05 06/27/17 08:05 06/27/17 08:05 - Medications Medications: Current Medications Ferric Sodium Gluconate Complex (Ferrlecit) 125 mg IVPB DAILY [facility] Stop: 06/30/17 10:01 Last Admin: 06/26/17 09:11 Dose: 125 mg Magnesium Hydroxide (Milk Of Magnesia) 30 ml PO DAILY [facility] Stop: 06/27/17 18:21 Last Admin: 06/26/17 09:10 Dose: 30 ml Mineral Oil (Fleet Mineral Oil Enema) 135 ml RC DAILY PRN PRN Reason: Constipation Morphine Sulfate (Morphine) 4 mg IVP Q4 PRN PRN Reason: Pain, moderate (4-7) Last Admin: 06/27/17 03:57 Dose: 4 mg Ondansetron HCl (Zofran Inj) 4 mg IVP Q4 PRN PRN Reason: Nausea/Vomiting Last Admin: 06/26/17 21:46 Dose: 4 mg Pantoprazole Sodium (Protonix Inj) 40 mg IVP DAILY [facility] Last Admin: 06/26/17 09:10 Dose: 40 mg Polyethylene Glycol (Miralax) 17 gm PO BID [facility] Last Admin: 06/26/17 18:45 Dose: 17 gm Senna/Docusate Sodium (Senokot S 50 Mg-8.6 Mg) 2 tab PO DAILY [facility] Last Admin: 06/26/17 09:11 Dose: 2 tab - Labs Labs: 06/27/17 07:24 06/27/17 07:24 PT 12.0 SECONDS (9.7-12.2) 06/24/17 06:49 INR 1.1 06/24/17 06:49 Attending/Attestation - Attestation I have personally seen and examined this patient.: Yes I have fully participated in the care of the patient.: Yes I have reviewed all pertinent clinical information, including history, physical exam and plan: Yes Notes (Text): 06/27/17 09:42 I have seen and examined patient with GI fellow. No acute events overnight, she still complains of ongoing nausea and generalized abdominal discomfort. She denies vomiting, fever/chills, no bowel movements in past 5 days. She refused enema yesterday but is agreeable to attempt today. Review of vitals from today shows tachycardia. Morbid obesity HTN History of intraabdominal GIST, s/p EUS/EGD on wednesday demonstrating multiple gastric lesions with sonographic features of recurrent GIST Anemia Constipation - H/H markedly low this morning, likely lab error given no clinical features of bleeding. Recheck CBC and monitor. - Continue with PPI therapy - Anti-emetic therapy PRN - Administer mineral oil enema today and maintain aggressive bowel regimen to prevent constipation - Diet as tolerated - Awaiting FNB results from EUS examination. Patient will likely require Gleevac given multiple GIST lesions, unlikely surgical candidate. Follow up oncology recommendations. - CT triple phase liver ordered, follow up results - Will continue to monitor patient clinical course
[2017-06-27 08:39] LABS: EOSINOPHIL 1 % (0-4); NEUTROPHIL 84 % (50-75); NUCLEATED RED BLOOD CELL 2 % (0-0); TOTAL CELLS COUNTED 100
[2017-06-27] MEDS ORDERED: Iodixanol 320 MG/ML 100 ML BOTTLE IV ONE (10:09)
[2017-06-27] MEDS: Ferric Sodium Gluconat Complex 62.5 mg/5 ml Vial IVPB SCH (10:41)
[2017-06-27] MEDS: POLYETHYLENE GLYCOL 3350 17 GM/Dose PACKET PO SCH ×2 (10:41→19:05)
[2017-06-27] MEDS: Docusate-Senna 50 mg-8.6 mg Tab PO SCH (10:41)
[2017-06-27] MEDS: Magnesium Hydroxide Susp 30 ml UD PO SCH (10:42)
[2017-06-27 11:10] LABS: HEMATOCRIT 13.6 % (34.0-47.0); MEAN CORPUSCULAR HGB CONC 31.8 g/dL (33.0-37.0); MEAN PLATELET VOLUME 8.5 fL (7.2-11.7); WHITE BLOOD COUNT 13.8 K/uL (4.8-10.8)
--- NOTE | 2017-06-27 12:09 | CP.PCM.PN ---
<Maicol Wallsy - Last Filed: 06/27/17 12:07> Subjective - Date & Time of Evaluation Date of Evaluation: 06/27/17 Time of Evaluation: 08:25 - Subjective Subjective: Surgery progress note. Dr. Luna Pt seen and examined at bedside. No acute events overnight. Denies any F/C. Does report constipation. Denies any new complaints. Objective - Vital Signs/Intake and Output Vital Signs (last 24 hours): Temp Pulse Resp BP Pulse Ox 98.3 F 96 H 20 97/61 L 100 06/27/17 08:05 06/27/17 08:05 06/27/17 08:05 06/27/17 08:05 06/27/17 08:05 - Medications Medications: Current Medications Ferric Sodium Gluconate Complex (Ferrlecit) 125 mg IVPB DAILY [facility] Stop: 06/30/17 10:01 Last Admin: 06/27/17 10:41 Dose: 125 mg Magnesium Hydroxide (Milk Of Magnesia) 30 ml PO DAILY [facility] Stop: 06/27/17 18:21 Last Admin: 06/27/17 10:42 Dose: 30 ml Mineral Oil (Fleet Mineral Oil Enema) 135 ml RC DAILY PRN PRN Reason: Constipation Morphine Sulfate (Morphine) 4 mg IVP Q4 PRN PRN Reason: Pain, moderate (4-7) Last Admin: 06/27/17 03:57 Dose: 4 mg Ondansetron HCl (Zofran Inj) 4 mg IVP Q4 PRN PRN Reason: Nausea/Vomiting Last Admin: 06/26/17 21:46 Dose: 4 mg Pantoprazole Sodium (Protonix Inj) 40 mg IVP DAILY [facility] Last Admin: 06/27/17 10:40 Dose: 40 mg Polyethylene Glycol (Miralax) 17 gm PO BID [facility] Last Admin: 06/27/17 10:41 Dose: 17 gm Senna/Docusate Sodium (Senokot S 50 Mg-8.6 Mg) 2 tab PO DAILY [facility] Last Admin: 06/27/17 10:41 Dose: 2 tab - Labs Labs: 06/27/17 10:59 06/27/17 07:24 PT 12.0 SECONDS (9.7-12.2) 06/24/17 06:49 INR 1.1 06/24/17 06:49 - Constitutional Appears: Non-toxic, No Acute Distress - Head Exam Head Exam: ATRAUMATIC, NORMAL INSPECTION, NORMOCEPHALIC - Eye Exam Eye Exam: EOMI, Normal appearance - ENT Exam ENT Exam: Mucous Membranes Moist - Respiratory Exam Respiratory Exam: NORMAL BREATHING PATTERN. absent: Accessory Muscle Use, Respiratory Distress - GI/Abdominal Exam GI & Abdominal Exam: Soft. absent: Firm, Guarding, Rigid, Tenderness Assessment and Plan - Assessment and Plan (Free Text) Assessment: 57yo F with possible recurrent GIST, here with abdominal pain. S/p EUS on 06/25 - f/u GI recs - f/u path Gastric Bx - no role of surgery as primary management at this time. F/u further recs as per Dr. Khan - f/u Liver CT - surgery team will sign-off. Please re-consult as necessary Further recs as per Dr. Jeremy Walls PGY1 surgery pager: [phone] <Elias Luna - Last Filed: 06/27/17 22:41> Objective - Vital Signs/Intake and Output Vital Signs (last 24 hours): Temp Pulse Resp BP Pulse Ox 98.8 F 98 H 20 115/68 100 06/27/17 21:28 06/27/17 21:28 06/27/17 21:28 06/27/17 21:28 06/27/17 15:40 Intake and Output: 06/27/17 06/28/17 18:59 06:59 Intake Total 1025 850 Output Total 600 Balance 1025 250 - Medications Medications: Current Medications Ferric Sodium Gluconate Complex (Ferrlecit) 125 mg IVPB DAILY [facility] Stop: 06/30/17 10:01 Last Admin: 06/27/17 10:41 Dose: 125 mg Mineral Oil (Fleet Mineral Oil Enema) 135 ml RC DAILY PRN PRN Reason: Constipation Morphine Sulfate (Morphine) 4 mg IVP Q4 PRN PRN Reason: Pain, moderate (4-7) Last Admin: 06/27/17 12:53 Dose: 4 mg Ondansetron HCl (Zofran Inj) 4 mg IVP Q4 PRN PRN Reason: Nausea/Vomiting Last Admin: 06/27/17 19:47 Dose: 4 mg Pantoprazole Sodium (Protonix Inj) 40 mg IVP DAILY [facility] Last Admin: 06/27/17 10:40 Dose: 40 mg Polyethylene Glycol (Miralax) 17 gm PO BID [facility] Last Admin: 06/27/17 19:05 Dose: Not Given Senna/Docusate Sodium (Senokot S 50 Mg-8.6 Mg) 2 tab PO DAILY [facility] Last Admin: 06/27/17 10:41 Dose: 2 tab - Labs Labs: 06/27/17 10:59 06/27/17 07:24 PT 12.0 SECONDS (9.7-12.2) 06/24/17 06:49 INR 1.1 06/24/17 06:49 Attending/Attestation - Attestation I have personally seen and examined this patient.: Yes I have fully participated in the care of the patient.: Yes I have reviewed all pertinent clinical information, including history, physical exam and plan: Yes Notes (Text): Pt was seen and examined at bedside Agree with above note and assessment Pt with Recurrent GISt Oncology assessment appreciated No need for any surgical f.u F/u as out pt c.w current mx Plan d.w pt in detail. Risk and benefit explained in detail.
--- NOTE | 2017-06-27 17:05 | CT ---
PROCEDURE: CT Abdomen and Pelvis without intravenous contrast HISTORY: r/o GI bleed s/p biopsy of stomach lesion COMPARISON: Abdomen and pelvis CT with contrast 06/21/2017. TECHNIQUE: Helical CT of the abdomen and pelvis was performed without oral or intravenous contrast as per referring physician request.. Contrast Dose: None Radiation dose: Total exam DLP = 1325.71 mGy-cm. This CT exam was performed using one or more of the following dose reduction techniques: Automated exposure control, adjustment of the mA and/or kV according to patient size, and/or use of iterative reconstruction technique. FINDINGS: Body habitus and restrained motion degraded call this examination grossly. LOWER THORAX: Unremarkable. LIVER: Unremarkable. No gross lesion or ductal dilatation. GALLBLADDER AND BILE DUCTS: Unremarkable. PANCREAS: Nonfocal ultra pancreas again appreciated. SPLEEN: Unremarkable. ADRENALS: Unremarkable. No mass. KIDNEYS AND URETERS: Unremarkable. No hydronephrosis. No solid mass. VASCULATURE: Unremarkable. No aortic aneurysm. BOWEL: The stomach appears largely collapsed there is no bowel obstruction appreciable. The likelihood of identifying hemorrhage is poor given lack of intravenous contrast and no hyper dense fluid collections appreciated within or outside of the stomach and small large bowel lumen. Recurrent GIST lesion or other lesion is seen at the distal lesser curvature of the stomach once again with mural calcifications seen the associate with the stomach. Central calcifications are again seen within this lesion. APPENDIX: Not identified. PERITONEUM: Moderate ascites is now appreciated, increased from the prior volume noted previously. No free intraperitoneal gas. LYMPH NODES: Unremarkable. No enlarged lymph nodes. BLADDER: Unremarkable. REPRODUCTIVE: Unremarkable. BONES: No acute fracture. OTHER FINDINGS: None. IMPRESSION: Limited study due to or part restrained motion and body habitus. No CT evidence to define site of gastrointestinal bleeding although recurrent GIST or additional tumor again seen recurrent at the stomach. Increased ascites noted. No bowel obstruction or free intraperitoneal gas.
--- NOTE | 2017-06-27 17:06 | CP.PCM.PN ---
Subjective - Date & Time of Evaluation Date of Evaluation: 06/27/17 Time of Evaluation: 10:40 - Subjective Subjective: clinically same Objective - Vital Signs/Intake and Output Vital Signs (last 24 hours): Temp Pulse Resp BP Pulse Ox 98.4 F 94 H 20 120/74 100 06/27/17 16:01 06/27/17 16:01 06/27/17 16:01 06/27/17 16:01 06/27/17 08:05 Intake and Output: 06/27/17 06/27/17 06:59 18:59 Intake Total 1025 Balance 1025 - Medications Medications: Current Medications Ferric Sodium Gluconate Complex (Ferrlecit) 125 mg IVPB DAILY [facility] Stop: 06/30/17 10:01 Last Admin: 06/27/17 10:41 Dose: 125 mg Magnesium Hydroxide (Milk Of Magnesia) 30 ml PO DAILY [facility] Stop: 06/27/17 18:21 Last Admin: 06/27/17 10:42 Dose: 30 ml Mineral Oil (Fleet Mineral Oil Enema) 135 ml RC DAILY PRN PRN Reason: Constipation Morphine Sulfate (Morphine) 4 mg IVP Q4 PRN PRN Reason: Pain, moderate (4-7) Last Admin: 06/27/17 12:53 Dose: 4 mg Ondansetron HCl (Zofran Inj) 4 mg IVP Q4 PRN PRN Reason: Nausea/Vomiting Last Admin: 06/26/17 21:46 Dose: 4 mg Pantoprazole Sodium (Protonix Inj) 40 mg IVP DAILY [facility] Last Admin: 06/27/17 10:40 Dose: 40 mg Polyethylene Glycol (Miralax) 17 gm PO BID [facility] Last Admin: 06/27/17 10:41 Dose: 17 gm Senna/Docusate Sodium (Senokot S 50 Mg-8.6 Mg) 2 tab PO DAILY [facility] Last Admin: 06/27/17 10:41 Dose: 2 tab - Labs Labs: 06/27/17 10:59 06/27/17 07:24 PT 12.0 SECONDS (9.7-12.2) 06/24/17 06:49 INR 1.1 06/24/17 06:49 - Constitutional Appears: Well - Head Exam Head Exam: ATRAUMATIC, NORMAL INSPECTION, NORMOCEPHALIC - Eye Exam Eye Exam: EOMI, Normal appearance, PERRL Pupil Exam: NORMAL ACCOMODATION, PERRL - ENT Exam ENT Exam: Mucous Membranes Moist, Normal Exam - Neck Exam Neck Exam: Full ROM, Normal Inspection. absent: Lymphadenopathy - Respiratory Exam Respiratory Exam: Clear to Ausculation Bilateral, NORMAL BREATHING PATTERN - Cardiovascular Exam Cardiovascular Exam: REGULAR RHYTHM, +S1, +S2. absent: Murmur - GI/Abdominal Exam GI & Abdominal Exam: Soft, Normal Bowel Sounds. absent: Tenderness - Rectal Exam Rectal Exam: Deferred - Extremities Exam Extremities Exam: Full ROM, Normal Capillary Refill, Normal Inspection. absent : Joint Swelling, Pedal Edema - Back Exam Back Exam: NORMAL INSPECTION Assessment and Plan (1) Anemia Status: Acute (2) Colon tumor Status: Acute (3) Gastrointestinal stromal neoplasm Status: Acute (4) Hypokalemia Status: Acute - Assessment and Plan (Free Text) Plan: patient examined. Patient better. Repeat CT scan shows no evidence of definite site of GI bleeding although recurrent GIST or addition to more may be present.
[2017-06-28] MEDS: Morphine 4 MG/ML VIAL IVP PRN ×4 (03:02→19:27)
[2017-06-28] MEDS: Mineral Oil Enema 135 ml RC PRN (05:12)
--- NOTE | 2017-06-28 07:22 | CP.PCM.PN ---
<Jessie Garrison - Last Filed: 06/28/17 11:00> Subjective - Date & Time of Evaluation Date of Evaluation: 06/28/17 Time of Evaluation: 06:45 - Subjective Subjective: GI Fellow PGY 4 Progress Note Pt seen and evaluated at bedside, pt still complaining of nausea and abdominal pain. Pt has not gotten out of bed to ambulate or sit in a chair. She is tolerating a diet. No BM yesterday, received enema this am. No coffee ground emesis, melena or hematochezia. ROS: A 12pt ROS was negative except as above. Objective - Vital Signs/Intake and Output Vital Signs (last 24 hours): Temp Pulse Resp BP Pulse Ox 98.1 F 90 20 98/65 L 98 06/28/17 04:25 06/28/17 04:25 06/28/17 04:25 06/28/17 04:25 06/28/17 04:25 Intake and Output: 06/28/17 06/28/17 06:59 18:59 Intake Total 950 Output Total 600 Balance 350 - Medications Medications: Current Medications Ferric Sodium Gluconate Complex (Ferrlecit) 125 mg IVPB DAILY [facility] Stop: 06/30/17 10:01 Last Admin: 06/27/17 10:41 Dose: 125 mg Mineral Oil (Fleet Mineral Oil Enema) 135 ml RC DAILY PRN PRN Reason: Constipation Last Admin: 06/28/17 05:12 Dose: 135 ml Morphine Sulfate (Morphine) 4 mg IVP Q4 PRN PRN Reason: Pain, moderate (4-7) Last Admin: 06/28/17 06:39 Dose: 4 mg Ondansetron HCl (Zofran Inj) 4 mg IVP Q4 PRN PRN Reason: Nausea/Vomiting Last Admin: 06/28/17 02:43 Dose: 4 mg Pantoprazole Sodium (Protonix Inj) 40 mg IVP DAILY [facility] Last Admin: 06/27/17 10:40 Dose: 40 mg Polyethylene Glycol (Miralax) 17 gm PO BID [facility] Last Admin: 06/27/17 19:05 Dose: Not Given Senna/Docusate Sodium (Senokot S 50 Mg-8.6 Mg) 2 tab PO DAILY [facility] Last Admin: 06/27/17 10:41 Dose: 2 tab - Labs Labs: 06/27/17 10:59 12/03/17 07:24 PT 12.0 SECONDS (9.7-12.2) 06/24/17 06:49 INR 1.1 06/24/17 06:49 - Constitutional Appears: Non-toxic - Head Exam Head Exam: ATRAUMATIC, NORMAL INSPECTION, NORMOCEPHALIC - Eye Exam Eye Exam: EOMI, Normal appearance, PERRL Pupil Exam: PERRL - ENT Exam ENT Exam: Mucous Membranes Moist, Normal Exam - Neck Exam Neck Exam: Full ROM - Respiratory Exam Respiratory Exam: Clear to Ausculation Bilateral, NORMAL BREATHING PATTERN - Cardiovascular Exam Cardiovascular Exam: REGULAR RHYTHM - GI/Abdominal Exam GI & Abdominal Exam: Distended, Soft, Tenderness, Normal Bowel Sounds - Rectal Exam Rectal Exam: Deferred - Extremities Exam Extremities Exam: Normal Inspection - Back Exam Back Exam: NORMAL INSPECTION. 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 1. History of GIST s/p partial small and large bowel resection and therapy with Gleevac 2. Anemia 3. Abdominal pain, vomiting 4. Abnormal mass lesion in stomach s/p EUS and biopsy 5. Constipation Plan: -Continue supportive care with anti-emetics and pain control - Continue to monitor H/H s/p 3U PRBC transfusion - Concern for retroperitoneal blood, CTA/P shows increased ascites moderate from prior imaging, possible blood vs malignant acites, IR consult - CT Triple phase Abdomen pending - Bowel regimen with Miralax BID and fleet mineral oil enema prn - Continue po PPI daily - s/p EUS examination with biopsy of stomach module into Layer 4/ muscularis propriya to determine GIST, adenocarcinoma, leiomyoma, or carcinoid - Pt will mostly likely need treatment with Gleevac vs surgical intervention, further recs per Oncology/Surgery - Will continue to follow and make further recommendations pending biopsy results and monitor H/H <Uziel Groves MD - Last Filed: 06/28/17 17:01> Objective - Vital Signs/Intake and Output Vital Signs (last 24 hours): Temp Pulse Resp BP Pulse Ox 97.9 F 90 18 110/78 99 06/28/17 15:05 06/28/17 15:05 06/28/17 15:05 06/28/17 15:05 06/28/17 15:00 Intake and Output: 06/28/17 06/28/17 06:59 18:59 Intake Total 1600 750 Output Total 600 400 Balance 1000 350 - Medications Medications: Current Medications Ferric Sodium Gluconate Complex (Ferrlecit) 125 mg IVPB DAILY [facility] Stop: 06/30/17 10:01 Last Admin: 06/28/17 10:20 Dose: 125 mg Mineral Oil (Fleet Mineral Oil Enema) 135 ml RC DAILY PRN PRN Reason: Constipation Last Admin: 06/28/17 05:12 Dose: 135 ml Morphine Sulfate (Morphine) 4 mg IVP Q4 PRN PRN Reason: Pain, moderate (4-7) Last Admin: 06/28/17 13:05 Dose: 4 mg Ondansetron HCl (Zofran Inj) 4 mg IVP Q4 PRN PRN Reason: Nausea/Vomiting Last Admin: 06/28/17 02:43 Dose: 4 mg Pantoprazole Sodium (Protonix Inj) 40 mg IVP DAILY [facility] Last Admin: 06/28/17 10:20 Dose: 40 mg Polyethylene Glycol (Miralax) 17 gm PO BID [facility] Last Admin: 06/28/17 10:21 Dose: 17 gm Senna/Docusate Sodium (Senokot S 50 Mg-8.6 Mg) 2 tab PO DAILY [facility] Last Admin: 06/28/17 10:19 Dose: 2 tab - Labs Labs: 06/28/17 07:14 06/28/17 07:14 PT 12.0 SECONDS (9.7-12.2) 06/24/17 06:49 INR 1.1 06/24/17 06:49 Attending/Attestation - Attestation I have personally seen and examined this patient.: Yes I have fully participated in the care of the patient.: Yes I have reviewed all pertinent clinical information, including history, physical exam and plan: Yes Notes (Text): 06/28/17 16:48 Patient seen and examined with GI fellow. 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 She has discomfort due to ascites and has dropped Hb. New onset azotemia precludes contrast imaging. Will discuss with Ir for sonogram guided paracentesis and send for diagnostic studies. Diet as tolerated. No overt s/s of GI bleeding. Continue laxatives and stool softeners
[2017-06-28 07:24] LABS: BASO # 0.1 K/uL (0.0-0.2); BASO % 0.5 % (0.0-2.0); EOS % 0.2 % (0.0-4.0)
[2017-06-28 07:30] LABS: HEMATOCRIT 20.2 % (34.0-47.0); LYMPH # 1.4 K/uL (1.0-4.3); LYMPH % 9.8 % (20.0-40.0); MEAN CELL VOLUME 86.9 fL (81.0-99.0); MEAN CORPUSCULAR HEMOGLOBIN 29.8 pg (27.0-31.0); MEAN CORPUSCULAR HGB CONC 34.3 g/dL (33.0-37.0); MEAN PLATELET VOLUME 8.1 fL (7.2-11.7); MONO % 6.9 % (0.0-10.0); PLATELET COUNT 172 K/uL (130-400); RED CELL DISTRIBUTION WIDTH 15.6 % (11.5-14.5); WHITE BLOOD COUNT 13.9 K/uL (4.8-10.8)
[2017-06-28 07:54] LABS: BILIRUBIN,TOTAL 0.9 mg/dL (0.2-1.3); CALCIUM 7.6 mg/dl (8.6-10.4); POTASSIUM 4.3 mmol/L (3.6-5.2); TOTAL PROTEIN 4.9 g/dL (6.3-8.3)
[2017-06-28 07:55] LABS: ALB/GLOB RATIO 1.3 (1.0-2.1)
[2017-06-28 09:13] LABS: NEUTROPHIL 89 % (50-75); NUCLEATED RED BLOOD CELL 4 % (0-0); TOTAL CELLS COUNTED 100
[2017-06-28] MEDS: Docusate-Senna 50 mg-8.6 mg Tab PO SCH (10:19)
[2017-06-28] MEDS: Ferric Sodium Gluconat Complex 62.5 mg/5 ml Vial IVPB SCH (10:20)
[2017-06-28] MEDS: POLYETHYLENE GLYCOL 3350 17 GM/Dose PACKET PO SCH ×2 (10:21→18:30)
[2017-06-28] MEDS ORDERED: Iodixanol 320 MG/ML 100 ML BOTTLE IV ONE ×2 (11:13→15:56)
[2017-06-28] MEDS ORDERED: Lidocaine 2% Inj (20ml) INFIL ONE (17:35)
--- NOTE | 2017-06-28 19:41 | CP.PCM.PN ---
Subjective - Date & Time of Evaluation Date of Evaluation: 06/28/17 Time of Evaluation: 12:00 - Subjective Subjective: clinically same Objective - Vital Signs/Intake and Output Vital Signs (last 24 hours): Temp Pulse Resp BP Pulse Ox 98.1 F 96 H 22 94/62 L 99 06/28/17 16:00 06/28/17 16:00 06/28/17 16:00 06/28/17 16:00 06/28/17 16:00 Intake and Output: 06/28/17 06/29/17 18:59 06:59 Intake Total 750 Output Total 400 Balance 350 - Medications Medications: Current Medications Ferric Sodium Gluconate Complex (Ferrlecit) 125 mg IVPB DAILY [facility] Stop: 06/30/17 10:01 Last Admin: 06/28/17 10:20 Dose: 125 mg Mineral Oil (Fleet Mineral Oil Enema) 135 ml RC DAILY PRN PRN Reason: Constipation Last Admin: 06/28/17 05:12 Dose: 135 ml Morphine Sulfate (Morphine) 4 mg IVP Q4 PRN PRN Reason: Pain, moderate (4-7) Last Admin: 06/28/17 19:27 Dose: 4 mg Ondansetron HCl (Zofran Inj) 4 mg IVP Q4 PRN PRN Reason: Nausea/Vomiting Last Admin: 06/28/17 19:29 Dose: 4 mg Pantoprazole Sodium (Protonix Inj) 40 mg IVP DAILY [facility] Last Admin: 06/28/17 10:20 Dose: 40 mg Polyethylene Glycol (Miralax) 17 gm PO BID [facility] Last Admin: 06/28/17 18:30 Dose: 17 gm Senna/Docusate Sodium (Senokot S 50 Mg-8.6 Mg) 2 tab PO DAILY [facility] Last Admin: 06/28/17 10:19 Dose: 2 tab - Labs Labs: 06/28/17 07:14 06/28/17 07:14 PT 11.7 SECONDS (9.7-12.2) 06/28/17 16:53 INR 1.0 06/28/17 16:53 Assessment and Plan (1) Anemia Status: Acute (2) Colon tumor Status: Acute (3) Gastrointestinal stromal neoplasm Status: Acute (4) Hypokalemia Status: Acute
[2017-06-29] MEDS: Morphine 4 MG/ML VIAL IVP PRN ×4 (00:44→18:49)
--- NOTE | 2017-06-29 06:35 | CP.PCM.PN ---
<Rahul Samuel - Last Filed: 06/29/17 08:50> Subjective - Date & Time of Evaluation Date of Evaluation: 06/29/17 Time of Evaluation: 06:10 - Subjective Subjective: Rahul Samuel D.O. PGY-2, GI Progress Note 57 year old female with a PMH of GIST s/p partial large and small bowel resections, obesity, HTN, and asthma who presented to with complaint of abdominal pain, nausea, vomiting. Patient was seen and examined at bedside. Patient was able to have the Liver CT yesterday and states that she has been doing better overall. Patient still has nausea at times but has not vomited since last night. Patient has not had a bowel movement but states that she is passing gas and feels that she will have one soon. No acute overnight events. Objective - Vital Signs/Intake and Output Vital Signs (last 24 hours): Temp Pulse Resp BP Pulse Ox 98.2 F 98 H 20 109/63 99 06/29/17 05:12 06/29/17 05:12 06/29/17 05:12 06/29/17 05:12 06/29/17 04:51 Intake and Output: 06/28/17 06/29/17 18:59 06:59 Intake Total 750 1280 Output Total 400 Balance 350 1280 - Medications Medications: Current Medications Ferric Sodium Gluconate Complex (Ferrlecit) 125 mg IVPB DAILY [facility] Stop: 06/30/17 10:01 Last Admin: 06/28/17 10:20 Dose: 125 mg Mineral Oil (Fleet Mineral Oil Enema) 135 ml RC DAILY PRN PRN Reason: Constipation Last Admin: 06/28/17 05:12 Dose: 135 ml Morphine Sulfate (Morphine) 4 mg IVP Q4 PRN PRN Reason: Pain, moderate (4-7) Last Admin: 06/29/17 00:44 Dose: 4 mg Morphine Sulfate (Morphine) 4 mg IVP Q4 PRN PRN Reason: Pain, moderate (4-7) Last Admin: 06/29/17 04:51 Dose: 4 mg Ondansetron HCl (Zofran Inj) 4 mg IVP Q4 PRN PRN Reason: Nausea/Vomiting Last Admin: 06/29/17 04:50 Dose: 4 mg Pantoprazole Sodium (Protonix Inj) 40 mg IVP DAILY [facility] Last Admin: 06/28/17 10:20 Dose: 40 mg Polyethylene Glycol (Miralax) 17 gm PO BID [facility] Last Admin: 06/28/17 18:30 Dose: 17 gm Senna/Docusate Sodium (Senokot S 50 Mg-8.6 Mg) 2 tab PO DAILY [facility] Last Admin: 06/28/17 10:19 Dose: 2 tab - Labs Labs: 06/28/17 07:14 06/28/17 07:14 PT 11.7 SECONDS (9.7-12.2) 06/28/17 16:53 INR 1.0 06/28/17 16:53 - Constitutional Appears: Non-toxic, Chronically Ill - Head Exam Head Exam: ATRAUMATIC, NORMOCEPHALIC - Eye Exam Eye Exam: EOMI - ENT Exam ENT Exam: Mucous Membranes Moist, Normal Oropharynx - Neck Exam Neck Exam: absent: Tenderness - Respiratory Exam Respiratory Exam: Clear to Ausculation Bilateral. absent: Rhonchi - Cardiovascular Exam Cardiovascular Exam: RRR, +S1, +S2 - GI/Abdominal Exam GI & Abdominal Exam: Distended, Soft, Tenderness (minimal, improved from yesterday), Normal Bowel Sounds (distant). absent: Firm, Guarding, Rigid - Extremities Exam Extremities Exam: absent: Calf Tenderness, Joint Swelling - Neurological Exam Neurological Exam: Alert, Awake, Oriented x3 - Psychiatric Exam Psychiatric exam: Normal Affect, Normal Mood - Skin Skin Exam: Dry, Warm Assessment and Plan - Assessment and Plan (Free Text) Assessment: 57 year old female with a PMH of GIST s/p partial large and small bowel resections and previous Gleevec use and obesity who presented with n/v Plan: Abdominal pain with nausea and vomiting History of intraabdominal GIST S/p EGD with EUS 06/25 Morbid obesity HTN Anemia Constipation IR consulted for paracentesis, CT Abd/pelvis had showed increased ascites, possibly blood vs malignant ascites CT liver performed, pending official read S/p EGD with EUS examination with biopsy of stomach nodule, multiple gastric lesions with sonographic features of recurrent GIST, path pending Reviewed records from 2006 while patient was at [facility], appears there may have been a history of hemorrhagic GIST mets, will discuss with surgery Further recs per hematology/oncology Continue supportive care Continue anti-emetics Pain control Monitoring H&H closely s/p transfusion Continue bowel regimen with Miralax BID and fleet mineral oil enema prn Continue po PPI daily Discussed with fellow and attending physician Thank you for the pleasure of participating in the care of this interesting patient <Jerrod Lindsey - Last Filed: 06/29/17 09:04> Objective - Vital Signs/Intake and Output Vital Signs (last 24 hours): Temp Pulse Resp BP Pulse Ox 97.3 F L 95 H 18 120/84 96 06/29/17 08:39 06/29/17 08:39 06/29/17 08:39 06/29/17 08:39 06/29/17 08:39 Intake and Output: 06/29/17 06/29/17 06:59 18:59 Intake Total 1280 Balance 1280 - Medications Medications: Current Medications Ferric Sodium Gluconate Complex (Ferrlecit) 125 mg IVPB DAILY [facility] Stop: 06/30/17 10:01 Last Admin: 06/28/17 10:20 Dose: 125 mg Mineral Oil (Fleet Mineral Oil Enema) 135 ml RC DAILY PRN PRN Reason: Constipation Last Admin: 06/28/17 05:12 Dose: 135 ml Morphine Sulfate (Morphine) 4 mg IVP Q4 PRN PRN Reason: Pain, moderate (4-7) Last Admin: 06/29/17 00:44 Dose: 4 mg Morphine Sulfate (Morphine) 4 mg IVP Q4 PRN PRN Reason: Pain, moderate (4-7) Last Admin: 06/29/17 04:51 Dose: 4 mg Ondansetron HCl (Zofran Inj) 4 mg IVP Q4 PRN PRN Reason: Nausea/Vomiting Last Admin: 06/29/17 04:50 Dose: 4 mg Pantoprazole Sodium (Protonix Inj) 40 mg IVP DAILY [facility] Last Admin: 06/28/17 10:20 Dose: 40 mg Polyethylene Glycol (Miralax) 17 gm PO BID [facility] Last Admin: 06/28/17 18:30 Dose: 17 gm Senna/Docusate Sodium (Senokot S 50 Mg-8.6 Mg) 2 tab PO DAILY [facility] Last Admin: 06/28/17 10:19 Dose: 2 tab - Labs Labs: 06/28/17 07:14 06/28/17 07:14 PT 11.7 SECONDS (9.7-12.2) 12/04/17 16:53 INR 1.0 06/28/17 16:53 Attending/Attestation - Attestation I have personally seen and examined this patient.: Yes I have fully participated in the care of the patient.: Yes I have reviewed all pertinent clinical information, including history, physical exam and plan: Yes Notes (Text): 06/29/17 08:59 I have seen and examined patient with GI fellow and chief medical physicist. Patient complains of ongoing nausea and multiple episodes of vomiting this morning. She also reports generalized abdominal distention and pain. She was given enema yesterday but still has not had any bowel movement in nearly 1 week. She denies fever/chills. Review of vitals from today shows tachycardia. Morbid obesity History of GIST with prior hemorrhagic component Anemia s/p EGD/EUS with FNB showing multiple gastric lesions suggestive of recurrent GIST Abdominal pain, distention - hemoperitoneum CT liver reviewed by me showing significant steve-hepatic and steve-splenic ascites along with steve-hepatic lesion - Anti-emetic therapy PRN - Continue to monitor H/H, transfuse as necessary - Awaiting final read on liver CT imaging - Patient scheduled to have diagnostic/therapeutic paracentesis today, will await results - Follow up oncology recommendations - Given prior history of hemorrhagic small bowel lesion and current hemoperitoneum, will need to discuss with surgical team regarding potential therapeutic options - Will continue to monitor patient clinical course
[2017-06-29] MEDS ORDERED: Bisacodyl 5mg EC Tab PO ONE (06:54)
[2017-06-29 09:42] LABS: HEMATOCRIT 21.8 % (34.0-47.0); LYMPH # 1.5 K/uL (1.0-4.3); LYMPH % 8.4 % (20.0-40.0); MEAN CORPUSCULAR HGB CONC 32.4 g/dL (33.0-37.0); MEAN PLATELET VOLUME 8.2 fL (7.2-11.7); MONO # 1.1 K/uL (0.0-0.8); MONO % 6.3 % (0.0-10.0); NRBC % 0.5 % (0.0-2.0); PLATELET COUNT 158 K/uL (130-400); RED CELL DISTRIBUTION WIDTH 15.5 % (11.5-14.5); WHITE BLOOD COUNT 17.3 K/uL (4.8-10.8)
[2017-06-29 09:45] LABS: MEAN CELL VOLUME 89.6 fL (81.0-99.0)
[2017-06-29 10:00] LABS: ALB/GLOB RATIO 1.3 (1.0-2.1); BILIRUBIN,TOTAL 1.1 mg/dL (0.2-1.3); CALCIUM 7.6 mg/dl (8.6-10.4); POTASSIUM 4.7 mmol/L (3.6-5.2); TOTAL PROTEIN 5.1 g/dL (6.3-8.3)
[2017-06-29 10:02] LABS: NEUTROPHIL 91 % (50-75); NUCLEATED RED BLOOD CELL 2 % (0-0); TOTAL CELLS COUNTED 100
[2017-06-29] MEDS: Ferric Sodium Gluconat Complex 62.5 mg/5 ml Vial IVPB SCH (10:02)
[2017-06-29] MEDS: POLYETHYLENE GLYCOL 3350 17 GM/Dose PACKET PO SCH ×2 (10:02→18:51)
[2017-06-29] MEDS: Docusate-Senna 50 mg-8.6 mg Tab PO SCH (10:03)
--- NOTE | 2017-06-29 11:18 | CT ---
Liver protocol triple phase CT Indication: Gist, ascites Technique: Contiguous axial images of the abdomen without & with IV contrast utilizing liver protocol. Coronal and Sagittal reformats generated and reviewed. This CT exam was performed using 1 or more of the falling dose reduction techniques: Automated exposure control, adjustment of the MAA and/or kV according to patient size, and/or use of iterative reconstruction technique. Contrast: Oral contrast was not administered. 100 mL Visipaque IV. Radiation dose: Total exam DLP = 2741.8 MGy-cm. Comparison: CT abdomen and pelvis without IV contrast performed 06/27/17, CT abdomen pelvis with IV contrast performed 06/21/17 Findings: Dense coronary artery calcifications. There is no visible consolidation, pleural effusion, or pneumothorax. Moderate abdominal and pelvic ascites. Nodular hepatic contour. Heterogeneous hepatic parenchyma. Low-density hepatic lesions evident including 2.1 cm in the left hepatic lobe, 8 mm hepatic dome, and 2.4 cm in the right hepatic lobe ; left hepatic lobe lesion appears consistent with cyst well hepatic dome lesion is too small to characterize and right hepatic inferior lobe lesion is indeterminate. Pancreatic atrophy. The spleen, kidneys, adrenal glands, and gallbladder appear unremarkable. The stomach is nondistended. Large lesion, presumably recurrent gist versus other neoplasm, noted at the distal lesser curvature of the stomach with central calcifications and associated mural gastric calcifications. Lack of oral contrast limits evaluation for bowel pathology. The included upper abdominal bowel loops appear within normal limits of caliber without evidence of intestinal obstruction. There is no definite free air. Degenerative changes of the spine. Soft tissue edema. Impression: Moderate abdominal and pelvic ascites. Nodular hepatic contour. Heterogeneous hepatic parenchyma. Low-density hepatic lesions evident including 2.1 cm in the left hepatic lobe, 8 mm hepatic dome, and 2.4 cm in the right hepatic lobe ; left hepatic lobe lesion appears consistent with cyst well hepatic dome lesion is too small to characterize and right hepatic inferior lobe lesion remains indeterminate. Recurrent GIST versus additional neoplasm, re-identified at the distal lesser curvature of the stomach with central calcifications and associated mural gastric calcifications. Additional findings as above.
--- NOTE | 2017-06-29 11:57 | PCM.SURG1 ---
Surgeon's Initial Post Op Note - Surgeon's Notes Surgeon: Reji Almonte MD Helmet Hat Sweatband Puncher: NONE Type of Anesthesia: Local Pre-Operative Diagnosis: Ascites Operative Findings: US showed moderate ascites Post-Operative Diagnosis: Ascites Operation Performed: US guided paracentesis Specimen/Specimens Removed: 1200 cc of bloody fluid Estimated Blood Loss: EBL {In ML}: 0 Blood Products Given: N/A Drains Used: No Drains Post-Op Condition: Fair Date of Surgery/Procedure: 06/29/17 Time of Surgery/Procedure: 11:50
[2017-06-29 12:47] LABS: BODY FLUID TYPE PERITONEAL/ASCITES
[2017-06-29 13:24] LABS: BF GROSS APPEARANCE BLOODY (CLEAR)
[2017-06-29 13:25] LABS: BODY FLUID TOTAL COUNT 100 (0-0)
--- NOTE | 2017-06-29 17:44 | CP.PCM.PN ---
Subjective - Date & Time of Evaluation Date of Evaluation: 06/29/17 Time of Evaluation: 11:20 - Subjective Subjective: clinically same Objective - Vital Signs/Intake and Output Vital Signs (last 24 hours): Temp Pulse Resp BP Pulse Ox 97.9 F 92 H 20 110/63 98 06/29/17 16:11 06/29/17 16:11 06/29/17 16:11 06/29/17 16:11 06/29/17 15:00 Intake and Output: 06/29/17 06/29/17 06:59 18:59 Intake Total 1280 0 Balance 1280 0 - Medications Medications: Current Medications Ferric Sodium Gluconate Complex (Ferrlecit) 125 mg IVPB DAILY [facility] Stop: 06/30/17 10:01 Last Admin: 06/29/17 10:02 Dose: 125 mg Mineral Oil (Fleet Mineral Oil Enema) 135 ml RC DAILY PRN PRN Reason: Constipation Last Admin: 06/28/17 05:12 Dose: 135 ml Morphine Sulfate (Morphine) 4 mg IVP Q4 PRN PRN Reason: Pain, moderate (4-7) Last Admin: 06/29/17 00:44 Dose: 4 mg Morphine Sulfate (Morphine) 4 mg IVP Q4 PRN PRN Reason: Pain, moderate (4-7) Last Admin: 06/29/17 10:06 Dose: 4 mg Ondansetron HCl (Zofran Inj) 4 mg IVP Q4 PRN PRN Reason: Nausea/Vomiting Last Admin: 06/29/17 10:03 Dose: 4 mg Pantoprazole Sodium (Protonix Inj) 40 mg IVP DAILY [facility] Last Admin: 06/29/17 10:03 Dose: 40 mg Polyethylene Glycol (Miralax) 17 gm PO BID [facility] Last Admin: 06/29/17 10:02 Dose: 17 gm Senna/Docusate Sodium (Senokot S 50 Mg-8.6 Mg) 2 tab PO DAILY [facility] Last Admin: 06/29/17 10:03 Dose: 2 tab - Labs Labs: 06/29/17 09:35 06/29/17 09:35 PT 11.7 SECONDS (9.7-12.2) 06/28/17 16:53 INR 1.0 06/28/17 16:53 - Constitutional Appears: Well - Head Exam Head Exam: ATRAUMATIC, NORMAL INSPECTION, NORMOCEPHALIC - Eye Exam Eye Exam: EOMI, Normal appearance, PERRL Pupil Exam: NORMAL ACCOMODATION, PERRL - ENT Exam ENT Exam: Mucous Membranes Moist, Normal Exam - Neck Exam Neck Exam: Full ROM, Normal Inspection. absent: Lymphadenopathy - Respiratory Exam Respiratory Exam: Decreased Breath Sounds - Cardiovascular Exam Cardiovascular Exam: REGULAR RHYTHM, +S1, +S2 - GI/Abdominal Exam GI & Abdominal Exam: Soft, Diminished Bowel Sounds - Rectal Exam Rectal Exam: Deferred Assessment and Plan (1) Anemia Status: Acute (2) Colon tumor Status: Acute (3) Gastrointestinal stromal neoplasm Status: Acute (4) Hypokalemia Status: Acute
--- NOTE | 2017-06-29 23:53 | CARD ---
APPROVED REPORT EKG Measurement Heart [id number] <Conclusion> Normal sinus rhythm Normal ECG
[2017-06-30] MEDS: Morphine 4 MG/ML VIAL IVP PRN ×5 (01:28→22:15)
--- NOTE | 2017-06-30 06:48 | CP.PCM.PN ---
<Jessie Garrison - Last Filed: 06/30/17 09:42> Subjective - Date & Time of Evaluation Date of Evaluation: 06/30/17 Time of Evaluation: 06:20 - Subjective Subjective: GI Fellow PGY 4 Progress Note Pt seen and evaluated at bedside, pt still complaining of nausea and abdominal pain. She does not feel better after paracentesis of 1200cc of darren blood removed. Pt has not gotten out of bed to ambulate or sit in a chair. No BM for 1 week, on bowel regimen and one time enema with no outcome. No coffee ground emesis, melena or hematochezia. ROS: A 12pt ROS was negative except as above. Objective - Vital Signs/Intake and Output Vital Signs (last 24 hours): Temp Pulse Resp BP Pulse Ox 97.8 F 92 H 20 98/62 L 97 06/30/17 01:30 06/30/17 01:30 06/30/17 01:30 06/30/17 01:30 06/29/17 23:28 Intake and Output: 06/29/17 06/30/17 18:59 06:59 Intake Total 375 1120 Balance 375 1120 - Medications Medications: Current Medications Ferric Sodium Gluconate Complex (Ferrlecit) 125 mg IVPB DAILY [facility] Stop: 06/30/17 10:01 Last Admin: 06/29/17 10:02 Dose: 125 mg Mineral Oil (Fleet Mineral Oil Enema) 135 ml RC DAILY PRN PRN Reason: Constipation Last Admin: 06/28/17 05:12 Dose: 135 ml Morphine Sulfate (Morphine) 4 mg IVP Q4 PRN PRN Reason: Pain, moderate (4-7) Last Admin: 06/30/17 05:51 Dose: 4 mg Ondansetron HCl (Zofran Inj) 4 mg IVP Q4 PRN PRN Reason: Nausea/Vomiting Last Admin: 06/30/17 05:57 Dose: 4 mg Pantoprazole Sodium (Protonix Inj) 40 mg IVP DAILY [facility] Last Admin: 06/29/17 10:03 Dose: 40 mg Polyethylene Glycol (Miralax) 17 gm PO BID [facility] Last Admin: 06/29/17 18:51 Dose: 17 gm Senna/Docusate Sodium (Senokot S 50 Mg-8.6 Mg) 2 tab PO DAILY [facility] Last Admin: 06/29/17 10:03 Dose: 2 tab - Labs Labs: 06/29/17 09:35 06/29/17 09:35 PT 11.7 SECONDS (9.7-12.2) 06/28/17 16:53 INR 1.0 06/28/17 16:53 - Constitutional Appears: Non-toxic, No Acute Distress, In Acute Distress - Head Exam Head Exam: ATRAUMATIC, NORMAL INSPECTION, NORMOCEPHALIC - Eye Exam Eye Exam: EOMI, Normal appearance Pupil Exam: NORMAL ACCOMODATION, PERRL - ENT Exam ENT Exam: Mucous Membranes Moist, Normal Exam - Neck Exam Neck Exam: Full ROM, Normal Inspection - Respiratory Exam Respiratory Exam: Decreased Breath Sounds - Cardiovascular Exam Cardiovascular Exam: Tachycardia - GI/Abdominal Exam GI & Abdominal Exam: Distended, Tenderness Additional comments: obese - Rectal Exam Rectal Exam: Deferred - Extremities Exam Extremities Exam: Full ROM - Neurological Exam Neurological Exam: Alert, Awake - Psychiatric Exam Psychiatric exam: Anxious - Skin Skin Exam: Dry, Intact, Pallor, Warm Assessment and Plan - Assessment and Plan (Free Text) Assessment: This is a 57 year old female with history of obesity, HTN, asthma, 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 1. History of GIST s/p partial small and large bowel resection and therapy with Gleevac 2. Anemia 3. Abdominal pain, vomiting 4. Abnormal mass lesion in stomach s/p EUS and biopsy 5. Constipation Plan: -Continue supportive care with anti-emetics and pain control - Continue to monitor H/H s/p 2U PRBC transfusion last night, Hgb pending - CT Triple phase Abdomen with hepatic lesions and ascites - s/p paracentesis of 1200cc of darren blood - Hemoperitoneum, concern for hemorrhagic lesion, hx of small bowel lesion, discussed with surgery for possible diagnostic laparoscopy - Bowel regimen with Miralax BID and fleet mineral oil enema prn, recommend PT to help pt ambulate - Continue diet as tolerated - Continue po PPI daily - s/p EUS examination with biopsy of stomach module into Layer 4/ muscularis propriya to determine GIST, adenocarcinoma, leiomyoma, or carcinoid - Pt will mostly likely need treatment with Gleevac vs surgical intervention, further recs per Oncology/Surgery - Will continue to follow and make further recommendations pending biopsy results and monitor H/H - Will continue to follow closely <Ramón Chen - Last Filed: 06/30/17 13:18> Objective - Vital Signs/Intake and Output Vital Signs (last 24 hours): Temp Pulse Resp BP Pulse Ox 98.4 F 90 18 104/67 97 06/30/17 08:12 06/30/17 08:12 06/30/17 08:12 06/30/17 08:12 06/30/17 08:12 Intake and Output: 06/30/17 06/30/17 06:59 18:59 Intake Total 1120 Balance 1120 - Medications Medications: Current Medications Mineral Oil (Fleet Mineral Oil Enema) 135 ml RC DAILY PRN PRN Reason: Constipation Last Admin: 06/28/17 05:12 Dose: 135 ml Morphine Sulfate (Morphine) 4 mg IVP Q4 PRN PRN Reason: Pain, moderate (4-7) Last Admin: 06/30/17 10:13 Dose: 4 mg Ondansetron HCl (Zofran Inj) 4 mg IVP Q4 PRN PRN Reason: Nausea/Vomiting Last Admin: 06/30/17 10:14 Dose: 4 mg Pantoprazole Sodium (Protonix Inj) 40 mg IVP DAILY [facility] Last Admin: 06/30/17 10:22 Dose: 40 mg Polyethylene Glycol (Miralax) 17 gm PO BID [facility] Last Admin: 06/30/17 10:24 Dose: 17 gm Senna/Docusate Sodium (Senokot S 50 Mg-8.6 Mg) 2 tab PO DAILY [facility] Last Admin: 06/30/17 10:23 Dose: 2 tab - Labs Labs: 06/30/17 07:55 06/30/17 07:55 PT 11.7 SECONDS (9.7-12.2) 06/28/17 16:53 INR 1.0 06/28/17 16:53 Attending/Attestation - Attestation I have personally seen and examined this patient.: Yes I have fully participated in the care of the patient.: Yes I have reviewed all pertinent clinical information, including history, physical exam and plan: Yes Notes (Text): 06/30/17 13:15 57 year old female with morbid obesity, HTN, asthma, 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 1. GIST 2. Anemia 3. Abdominal pain 4. Nausea and vomiting 5. Ascites Plan: -s/p EUS with FNB of multiple gastric lesions, awaiting path -s/p paracentesis of 1 liter of blood from peritoneal cavity, await cytology -patient has an extensive history of multiple GISTs that have been resected as well as a strong family history of GIST, suggestive of familial GIST d/o -she has been non-compliant with Gleevec prior to admission -she has a past history of hemorrhage GIST into the abdomen -patient is likely to need surgery due to hemorrhage/anemia as well as vomiting/ tumor burden -appreciate surgical eval -will follow -appreciate oncology recommendations -continue PPI
[2017-06-30 08:12] LABS: BASO % 0.2 % (0.0-2.0); HEMATOCRIT 22.3 % (34.0-47.0); LYMPH # 0.8 K/uL (1.0-4.3); LYMPH % 5.5 % (20.0-40.0); MEAN CELL VOLUME 88.4 fL (81.0-99.0); MEAN CORPUSCULAR HEMOGLOBIN 29.6 pg (27.0-31.0); MEAN CORPUSCULAR HGB CONC 33.4 g/dL (33.0-37.0); MEAN PLATELET VOLUME 8.7 fL (7.2-11.7); MONO # 0.9 K/uL (0.0-0.8); MONO % 6.2 % (0.0-10.0); NRBC % 1.7 % (0.0-2.0); PLATELET COUNT 131 K/uL (130-400); RED CELL DISTRIBUTION WIDTH 15.2 % (11.5-14.5)
[2017-06-30 08:37] LABS: ALB/GLOB RATIO 1.2 (1.0-2.1); BILIRUBIN,TOTAL 1.3 mg/dL (0.2-1.3); CALCIUM 7.1 mg/dl (8.6-10.4); POTASSIUM 5.1 mmol/L (3.6-5.2); TOTAL PROTEIN 4.8 g/dL (6.3-8.3)
[2017-06-30] MEDS: Docusate-Senna 50 mg-8.6 mg Tab PO SCH (10:23)
[2017-06-30] MEDS: Ferric Sodium Gluconat Complex 62.5 mg/5 ml Vial IVPB SCH (10:23)
[2017-06-30] MEDS: POLYETHYLENE GLYCOL 3350 17 GM/Dose PACKET PO SCH ×2 (10:24→17:18)
[2017-06-30 10:31] LABS: NEUTROPHIL 88 % (50-75); NUCLEATED RED BLOOD CELL 3 % (0-0); TOTAL CELLS COUNTED 100
--- NOTE | 2017-06-30 13:46 | US ---
Date of Procedure: 06/29/2017 PROCEDURE: Ultrasound-guided paracentesis, CPT 58006 Medications: 7 cc 1% Lidocaine HISTORY: Ascites, abdominal pain, blood loss. TECHNIQUE: Following informed consent , the patient was placed supine on the stretcher and the site was marked. A limited abdominal ultrasound was performed that showed a small amount of intra-abdominal fluid. Procedural time out was called and the Pt's abdomen was marked and prepped and draped in the usual sterile fashion. Ultrasound-guided large volume paracentesis performed. A total of 1.4 liters of bloody fluid was removed without complication. Fluid specimen was sent for culture, sensitivity, cytology and chemistries. IMPRESSION: Ultrasound-guided paracentesis with removal of fluid which is predominantly blood. Patient has an intraperitoneal bleed.
--- NOTE | 2017-06-30 15:25 | CP.PCM.PN ---
<Jak Walls - Last Filed: 06/30/17 15:19> Subjective - Date & Time of Evaluation Date of Evaluation: 06/30/17 Time of Evaluation: 11:00 - Subjective Subjective: Surgery Progress note. Dr. Luna Pt seen and examined at bedside. No acute events overnight. She continues to have some generalized abdominal pain. Still reports N/V. Objective - Vital Signs/Intake and Output Vital Signs (last 24 hours): Temp Pulse Resp BP Pulse Ox 98.4 F 90 18 104/67 97 06/30/17 08:12 06/30/17 08:12 06/30/17 08:12 06/30/17 08:12 06/30/17 08:12 Intake and Output: 06/30/17 06/30/17 06:59 18:59 Intake Total 1120 Balance 1120 - Medications Medications: Current Medications Mineral Oil (Fleet Mineral Oil Enema) 135 ml RC DAILY PRN PRN Reason: Constipation Last Admin: 06/28/17 05:12 Dose: 135 ml Morphine Sulfate (Morphine) 4 mg IVP Q4 PRN PRN Reason: Pain, moderate (4-7) Last Admin: 06/30/17 10:13 Dose: 4 mg Ondansetron HCl (Zofran Inj) 4 mg IVP Q4 PRN PRN Reason: Nausea/Vomiting Last Admin: 06/30/17 10:14 Dose: 4 mg Pantoprazole Sodium (Protonix Inj) 40 mg IVP DAILY [facility] Last Admin: 06/30/17 10:22 Dose: 40 mg Polyethylene Glycol (Miralax) 17 gm PO BID [facility] Last Admin: 06/30/17 10:24 Dose: 17 gm Senna/Docusate Sodium (Senokot S 50 Mg-8.6 Mg) 2 tab PO DAILY [facility] Last Admin: 06/30/17 10:23 Dose: 2 tab - Labs Labs: 06/30/17 07:55 06/30/17 07:55 PT 11.7 SECONDS (9.7-12.2) 06/28/17 16:53 INR 1.0 06/28/17 16:53 - Constitutional Appears: Well, No Acute Distress - Head Exam Head Exam: ATRAUMATIC, NORMAL INSPECTION, NORMOCEPHALIC - Eye Exam Eye Exam: EOMI - ENT Exam ENT Exam: Mucous Membranes Moist - Respiratory Exam Respiratory Exam: NORMAL BREATHING PATTERN. absent: Accessory Muscle Use, Respiratory Distress - GI/Abdominal Exam GI & Abdominal Exam: Distended, Soft. absent: Firm, Guarding, Rigid Additional comments: tenderness to palpation - Neurological Exam Neurological Exam: Alert, Awake, Oriented x3 Assessment and Plan - Assessment and Plan (Free Text) Assessment: 57yo F with recurrent GIST, here with abdominal pain. S/P EUS on 06/25 suspicious for bloody ascites. 06/29 theraputic paracenthesis with bloody ascites - F/u GI recs - F/u Heme/onc recs - Recommend 2 FFP, 10 Cryo - Recommend CTA of abd. Continue fluid hydration as creat elevated Further recs as per Dr. Jeremy Walls PGY1 surgery pager: [phone] <Elias Luna B - Last Filed: 07/02/17 15:53> Objective - Vital Signs/Intake and Output Vital Signs (last 24 hours): Temp Pulse Resp BP Pulse Ox 98.2 F 76 23 90/53 L 99 07/02/17 04:00 07/02/17 13:50 07/02/17 13:50 07/02/17 13:50 07/02/17 13:15 Intake and Output: 07/02/17 07/02/17 06:59 18:59 Intake Total 1948 Output Total 20 Balance 1928 - Medications Medications: Current Medications Sodium Chloride (Sodium Chloride 0.9%) 1,000 mls @ 150 mls/hr IV .Q6H40M [facility] Last Admin: 07/02/17 06:00 Dose: 150 mls/hr Pantoprazole Sodium 80 mg/ (Sodium Chloride) 100 mls @ 10 mls/hr IVPB .Q10H [facility] PRN Reason: 8 MG/HR Last Admin: 07/02/17 10:49 Dose: 10 mls/hr Midazolam HCl 100 mg/ Sodium (Chloride) 100 mls @ 2.9 mls/hr IV .Q24H TIN; 0.02 MG/KG/HR PRN Reason: Protocol Fentanyl Citrate 2,500 mcg/ (Sodium Chloride) 250 mls @ 29.03 mls/hr IV .Q8H37M TIN; 2 MCG/KG/HR PRN Reason: Protocol Last Admin: 07/02/17 13:40 Dose: Not Given Norepinephrine Bitartrate 4 mg (/ Dextrose) 254 mls @ 15.24 mls/hr IV .[id number] PRN; Protocol; 4 MCG/MIN PRN Reason: TITRATE PER MD ORDER Last Admin: 07/02/17 13:50 Dose: 4 mcg/min, 15.24 mls/hr Mineral Oil (Fleet Mineral Oil Enema) 135 ml RC DAILY PRN PRN Reason: Constipation Last Admin: 07/01/17 08:12 Dose: 135 ml Morphine Sulfate (Morphine) 4 mg IVP Q4 PRN PRN Reason: Pain, moderate (4-7) Last Admin: 07/02/17 01:47 Dose: 4 mg Ondansetron HCl (Zofran Inj) 4 mg IVP Q4 PRN PRN Reason: Nausea/Vomiting Last Admin: 07/01/17 11:58 Dose: 4 mg Polyethylene Glycol (Miralax) 17 gm PO TID [facility] Last Admin: 07/02/17 14:00 Dose: Not Given Senna/Docusate Sodium (Senokot S 50 Mg-8.6 Mg) 2 tab PO DAILY [facility] Last Admin: 07/01/17 09:09 Dose: 2 tab - Labs Labs: 07/02/17 06:21 07/02/17 06:21 PT 11.5 SECONDS (9.7-12.2) 07/02/17 06:27 INR 1.0 07/02/17 06:27 APTT 23 SECONDS (21-34) 07/02/17 06:27 Attending/Attestation - Attestation I have personally seen and examined this patient.: Yes I have fully participated in the care of the patient.: Yes I have reviewed all pertinent clinical information, including history, physical exam and plan: Yes Notes (Text): Pt was seen and examined at bedside Agree with above note and assessment Pt with Stage 4 GIST with Intraperitoneal bleedding Pt is worsening clinically Due to wide spread peritoneal metastasis, there is no beneficial operative intervention indicated at present Transfuse FFP, PRBC, Cryoprecipitate Gleevac PO as per Oncologist. c/w current mx f.u PRN Plan d.w pt in detail Plan d/w PMD in detail Plan d.w and GI team in detail.
[2017-06-30 17:15] LABS: HEMATOCRIT 19.6 % (34.0-47.0); MEAN CORPUSCULAR HEMOGLOBIN 29.6 pg (27.0-31.0); MEAN CORPUSCULAR HGB CONC 33.2 g/dL (33.0-37.0); MEAN PLATELET VOLUME 8.5 fL (7.2-11.7); WHITE BLOOD COUNT 16.8 K/uL (4.8-10.8)
--- NOTE | 2017-06-30 17:29 | CP.PCM.PN ---
Subjective - Date & Time of Evaluation Date of Evaluation: 06/30/17 Time of Evaluation: 17:18 - Subjective Subjective: Events noted. The patient is s/p PRBC yesterday and also paracentesis removal of darren blood from the peritoneal cavity. Still in pain, recent cbc with decrease in Hgb again Objective - Vital Signs/Intake and Output Vital Signs (last 24 hours): Temp Pulse Resp BP Pulse Ox 97.7 F 93 H 20 90/60 L 100 06/30/17 15:10 06/30/17 15:10 06/30/17 15:10 06/30/17 15:10 06/30/17 15:10 Intake and Output: 06/30/17 06/30/17 06:59 18:59 Intake Total 1120 Balance 1120 - Medications Medications: Current Medications Mineral Oil (Fleet Mineral Oil Enema) 135 ml RC DAILY PRN PRN Reason: Constipation Last Admin: 06/28/17 05:12 Dose: 135 ml Morphine Sulfate (Morphine) 4 mg IVP Q4 PRN PRN Reason: Pain, moderate (4-7) Last Admin: 06/30/17 10:13 Dose: 4 mg Ondansetron HCl (Zofran Inj) 4 mg IVP Q4 PRN PRN Reason: Nausea/Vomiting Last Admin: 06/30/17 10:14 Dose: 4 mg Pantoprazole Sodium (Protonix Inj) 40 mg IVP DAILY [facility] Last Admin: 06/30/17 10:22 Dose: 40 mg Polyethylene Glycol (Miralax) 17 gm PO BID [facility] Last Admin: 06/30/17 10:24 Dose: 17 gm Senna/Docusate Sodium (Senokot S 50 Mg-8.6 Mg) 2 tab PO DAILY [facility] Last Admin: 06/30/17 10:23 Dose: 2 tab - Labs Labs: 06/30/17 07:55 06/30/17 07:55 PT 11.7 SECONDS (9.7-12.2) 06/28/17 16:53 INR 1.0 06/28/17 16:53 Assessment and Plan (1) Gastrointestinal stromal neoplasm Assessment & Plan: The patient has severe anemia with bleeding in the peritoneal cavity from possible peritoneal, metastatic GIST. 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 Have ordered PO imatinib, which will be available tomorrow. Plan Repeat coags, fibrinogen, CBC. Agree that invasive surgery for what seems like widespread mets in this high risk patient is not advisable at this time. Will give 2 units of FFPs, PRBC PRN, avoid cryoprecipitate if the coags are normal, because of the risk of thrombosis. Start PO Imatinib as soon as its available. Will discuss above with patient Status: Acute
--- NOTE | 2017-06-30 19:35 | CP.PCM.PN ---
Subjective - Date & Time of Evaluation Date of Evaluation: 06/30/17 Time of Evaluation: 10:20 - Subjective Subjective: clinically same Objective - Vital Signs/Intake and Output Vital Signs (last 24 hours): Temp Pulse Resp BP Pulse Ox 97.7 F 93 H 20 90/60 L 100 06/30/17 15:10 06/30/17 15:10 06/30/17 15:10 06/30/17 15:10 06/30/17 15:10 - Medications Medications: Current Medications Mineral Oil (Fleet Mineral Oil Enema) 135 ml RC DAILY PRN PRN Reason: Constipation Last Admin: 06/28/17 05:12 Dose: 135 ml Morphine Sulfate (Morphine) 4 mg IVP Q4 PRN PRN Reason: Pain, moderate (4-7) Last Admin: 06/30/17 18:17 Dose: 4 mg Ondansetron HCl (Zofran Inj) 4 mg IVP Q4 PRN PRN Reason: Nausea/Vomiting Last Admin: 06/30/17 10:14 Dose: 4 mg Pantoprazole Sodium (Protonix Inj) 40 mg IVP DAILY [facility] Last Admin: 06/30/17 10:22 Dose: 40 mg Polyethylene Glycol (Miralax) 17 gm PO BID [facility] Last Admin: 06/30/17 17:18 Dose: 17 gm Senna/Docusate Sodium (Senokot S 50 Mg-8.6 Mg) 2 tab PO DAILY [facility] Last Admin: 06/30/17 10:23 Dose: 2 tab - Labs Labs: 06/30/17 17:07 06/30/17 07:55 PT 11.3 SECONDS (9.7-12.2) 06/30/17 17:07 INR 1.0 06/30/17 17:07 APTT 24 SECONDS (21-34) 06/30/17 17:07 - Constitutional Appears: Well - Head Exam Head Exam: ATRAUMATIC, NORMAL INSPECTION, NORMOCEPHALIC - Eye Exam Eye Exam: EOMI, Normal appearance, PERRL Pupil Exam: NORMAL ACCOMODATION, PERRL - ENT Exam ENT Exam: Mucous Membranes Moist, Normal Exam - Neck Exam Neck Exam: Full ROM, Normal Inspection. absent: Lymphadenopathy - Respiratory Exam Respiratory Exam: Decreased Breath Sounds - Cardiovascular Exam Cardiovascular Exam: REGULAR RHYTHM, +S1, +S2 - GI/Abdominal Exam GI & Abdominal Exam: Soft, Diminished Bowel Sounds - Rectal Exam Rectal Exam: Deferred Assessment and Plan (1) Anemia Status: Acute (2) Colon tumor Status: Acute (3) Gastrointestinal stromal neoplasm Status: Acute (4) Hypokalemia Status: Acute
[2017-07-01] MEDS: Morphine 4 MG/ML VIAL IVP PRN ×2 (05:16→11:42)
--- NOTE | 2017-07-01 07:29 | CP.PCM.PN ---
<Jessie Garrison - Last Filed: 07/01/17 08:33> Subjective - Date & Time of Evaluation Date of Evaluation: 07/01/17 Time of Evaluation: 06:15 - Subjective Subjective: GI Fellow PGY 4 Progress Note Pt seen and evaluated at bedside, pt still complaining of nausea overnight. No BM for 1 week, on bowel regimen and one time enema with no outcome. No coffee ground emesis, melena or hematochezia. Pt reports feeling SOB yesterday better after oxygen mask. ROS: A 12pt ROS was negative except as above. Objective - Vital Signs/Intake and Output Vital Signs (last 24 hours): Temp Pulse Resp BP Pulse Ox 98 F 85 20 98/61 L 97 07/01/17 04:30 07/01/17 04:30 07/01/17 04:30 07/01/17 04:30 06/30/17 23:30 Intake and Output: 07/01/17 07/01/17 06:59 18:59 Intake Total 1105 Balance 1105 - Medications Medications: Current Medications Sodium Chloride (Sodium Chloride 0.9%) 1,000 mls @ 100 mls/hr IV .Q10H [facility] Mineral Oil (Fleet Mineral Oil Enema) 135 ml RC DAILY PRN PRN Reason: Constipation Last Admin: 06/28/17 05:12 Dose: 135 ml Morphine Sulfate (Morphine) 4 mg IVP Q4 PRN PRN Reason: Pain, moderate (4-7) Last Admin: 07/01/17 05:16 Dose: 4 mg Ondansetron HCl (Zofran Inj) 4 mg IVP Q4 PRN PRN Reason: Nausea/Vomiting Last Admin: 07/01/17 05:05 Dose: 4 mg Pantoprazole Sodium (Protonix Inj) 40 mg IVP DAILY [facility] Last Admin: 06/30/17 10:22 Dose: 40 mg Polyethylene Glycol (Miralax) 17 gm PO QID [facility] Senna/Docusate Sodium (Senokot S 50 Mg-8.6 Mg) 2 tab PO DAILY [facility] Last Admin: 06/30/17 10:23 Dose: 2 tab - Labs Labs: 06/30/17 17:07 06/30/17 07:55 PT 11.3 SECONDS (9.7-12.2) 06/30/17 17:07 INR 1.0 06/30/17 17:07 APTT 24 SECONDS (21-34) 06/30/17 17:07 - Constitutional Appears: Chronically Ill - Head Exam Head Exam: ATRAUMATIC, NORMAL INSPECTION, NORMOCEPHALIC - Eye Exam Eye Exam: EOMI, Normal appearance, PERRL Pupil Exam: NORMAL ACCOMODATION, PERRL - ENT Exam ENT Exam: Mucous Membranes Moist, Normal Exam - Neck Exam Neck Exam: Full ROM - Respiratory Exam Respiratory Exam: Clear to Ausculation Bilateral, NORMAL BREATHING PATTERN - Cardiovascular Exam Cardiovascular Exam: REGULAR RHYTHM, RRR - GI/Abdominal Exam GI & Abdominal Exam: Distended, Tenderness, Normal Bowel Sounds - Rectal Exam Rectal Exam: Deferred - Extremities Exam Extremities Exam: Full ROM, Normal Inspection - Back Exam Back Exam: NORMAL INSPECTION - Neurological Exam Neurological Exam: Alert, Awake, Oriented x3 - Psychiatric Exam Psychiatric exam: Normal Affect, Normal Mood - Skin Skin Exam: Dry, Intact, Normal Color, Warm Assessment and Plan - Assessment and Plan (Free Text) Assessment: This is a 57 year old female with history of obesity, HTN, asthma, 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 1. History of GIST s/p partial small and large bowel resection and therapy with Gleevac 2. Anemia 3. Abdominal pain, vomiting 4. Abnormal mass lesion in stomach s/p EUS and biopsy 5. Constipation 6. Transaminemia 7. TANIA Plan: -Continue supportive care with anti-emetics and pain control - Continue to monitor H/H s/p 1U PRBC transfusion last night, Hgb pending, pt has been transfused about 10U PRBCs since admission - s/p paracentesis of 1200cc of darren blood - Hemoperitoneum, concern for hemorrhagic lesion, hx of small bowel lesion - Pt may need possible surgery for hemorrhagic lesions/tumor burden, further recs per surgical team and oncology - Bowel regimen with Miralax BID and fleet mineral oil enema prn, recommend PT to help pt ambulate - Continue diet as tolerated - Continue po PPI daily - s/p EUS examination with biopsy of stomach module into Layer 4/ muscularis propriya to determine GIST, adenocarcinoma, leiomyoma, or carcinoid - Pt will be started on treatment with Gleevac today per Oncology - Will start IVF hydration due to TANIA likely prerenal - Transaminemeia likely from hepatic lesions, continue to monitor LFTs - Will continue to follow closely <Jerrod Lindsey - Last Filed: 07/01/17 13:58> Objective - Vital Signs/Intake and Output Vital Signs (last 24 hours): Temp Pulse Resp BP Pulse Ox 97.7 F 88 18 87/56 L 100 07/01/17 07:05 07/01/17 07:05 07/01/17 07:05 07/01/17 07:05 07/01/17 07:05 Intake and Output: 07/01/17 07/01/17 06:59 18:59 Intake Total 1105 Balance 1105 - Medications Medications: Current Medications Sodium Chloride (Sodium Chloride 0.9%) 1,000 mls @ 100 mls/hr IV .Q10H [facility] Last Admin: 07/01/17 08:04 Dose: 100 mls/hr Mineral Oil (Fleet Mineral Oil Enema) 135 ml RC DAILY PRN PRN Reason: Constipation Last Admin: 07/01/17 08:12 Dose: 135 ml Morphine Sulfate (Morphine) 4 mg IVP Q4 PRN PRN Reason: Pain, moderate (4-7) Last Admin: 07/01/17 11:42 Dose: 4 mg Ondansetron HCl (Zofran Inj) 4 mg IVP Q4 PRN PRN Reason: Nausea/Vomiting Last Admin: 07/01/17 11:58 Dose: 4 mg Pantoprazole Sodium (Protonix Inj) 40 mg IVP DAILY [facility] Last Admin: 07/01/17 09:09 Dose: 40 mg Polyethylene Glycol (Miralax) 17 gm PO TID [facility] Senna/Docusate Sodium (Senokot S 50 Mg-8.6 Mg) 2 tab PO DAILY [facility] Last Admin: 07/01/17 09:09 Dose: 2 tab - Labs Labs: 07/01/17 11:21 07/01/17 11:53 PT 11.1 SECONDS (9.7-12.2) 07/01/17 11:21 INR 1.0 07/01/17 11:21 APTT 23 SECONDS (21-34) 07/01/17 11:21 Attending/Attestation - Attestation I have personally seen and examined this patient.: Yes I have fully participated in the care of the patient.: Yes I have reviewed all pertinent clinical information, including history, physical exam and plan: Yes Notes (Text): 07/01/17 13:53 I have seen and examined patient with GI fellow. She reports worsening dyspnea even with minimal movements such as standing up. She continues to report diffuse abdominal pain, still has not had a bowel movement for nearly 1 week now. She denies vomiting, fever/chills. Morbid obesity HTN Anemia Acute renal insufficiency Recurrent GIST tumor Hemoperitoneum s/p therapeutic paracentesis - Diet as tolerated - Anti-emetic therapy PRN - Administer mineral oil enema today and continue with aggressive bowel regimen to prevent constipation - Creatinine continues to rise, obtain renal US, r/o obstructive uropathy - H/H continues to trend down despite PRBC transfusions indicating ongoing slow intra-abdominal bleed. Again, suggest surgical intervention, potential diagnostic laparoscopy. Patient currently not able to get CT angiogram due to renal insufficiency. - Follow up oncology recommendations for timing of initiation of Gleevac - Awaiting EUS biopsy results - Overall patient prognosis is guarded, will continue to monitor
[2017-07-01] MEDS ORDERED: Lactated Ringer's 1,000 ML IV SCH (07:30)
[2017-07-01] MEDS: Sodium Chloride 0.9% 1,000 ML IV SCH ×3 (08:04→17:35)
[2017-07-01] MEDS: Mineral Oil Enema 135 ml RC PRN (08:12)
[2017-07-01] MEDS: Docusate-Senna 50 mg-8.6 mg Tab PO SCH (09:09)
[2017-07-01] MEDS ORDERED: POLYETHYLENE GLYCOL 3350 17 GM/Dose PACKET PO SCH (10:00)
[2017-07-01] MEDS ORDERED: POLYETHYLENE GLYCOL 3350 17 GM/Dose PACKET PO ONE (11:00)
[2017-07-01 11:28] LABS: BASO % 0.1 % (0.0-2.0); HEMATOCRIT 20.8 % (34.0-47.0); LYMPH # 0.9 K/uL (1.0-4.3); LYMPH % 5.4 % (20.0-40.0); MEAN CELL VOLUME 90.4 fL (81.0-99.0); MEAN CORPUSCULAR HGB CONC 33.1 g/dL (33.0-37.0); NRBC % 0.6 % (0.0-2.0); PLATELET COUNT 138 K/uL (130-400); RED CELL DISTRIBUTION WIDTH 15.2 % (11.5-14.5); WHITE BLOOD COUNT 17.3 K/uL (4.8-10.8)
[2017-07-01 12:11] LABS: MYELOCYTE 2 % (0-0); NEUTROPHIL 86 % (50-75); TOTAL CELLS COUNTED 100
[2017-07-01 12:16] LABS: ALB/GLOB RATIO 1.2 (1.0-2.1); BILIRUBIN,TOTAL 1.4 mg/dL (0.2-1.3); CALCIUM 7.5 mg/dl (8.6-10.4); POTASSIUM 5.5 mmol/L (3.6-5.2)
[2017-07-01] MEDS: POLYETHYLENE GLYCOL 3350 17 GM/Dose PACKET PO SCH ×2 (14:00→20:00)
[2017-07-01] MEDS ORDERED: Sodium Chloride 0.9% 1,000 ML IV ONE ×2 (14:29→16:09)
--- NOTE | 2017-07-01 14:32 | CP.PCM.CON ---
<Jessie Alba - Last Filed: 07/01/17 17:07> History of Present Illness - History of Present Illness History of Present Illness: Nephrology consult note for Dr. Lewis 57 year old female with PMH GIST (diagnosed in ), HTN, asthma presented for abdominal pain, nausea and vomiting on 06/21/17. Nephrology is consulted for TANIA. Pt presented with abdominal pain ongoing for over 1 month accompanied with nasuea and vomiting. Patient also began to develop constipation having about 1 BM every [address] scan on admission showing rounded , well circumscribed lesion along the lesser curvature of stomach, anastamotic alicia in small and large bowel. Patient has previously had multiple bowel surgeries for GIST tumor resection. patient has also been on Gleevac previously which she stopped 1 yr ago. During this admission, GI was consulted. Patient also underwent EUS with biopsy of tumor which was consistent GIST. Surgery for tumor removal and mets removal was not recommended at the time due to pts unstable condition. On admission, patient was noted to be anemia with Hgb of 7.7. Patient denied having any melena, blood stools or hematochezia. Even after being transfused multiple units of PRBC and platelets, patient's H&H continued to remain low. Repeat Ct scan without contrast showed no signs of overt bleeding. Today, pt complains of continued shortness of breath. Patient denies having any chest pain or palpitations. Patient complains of abdominal pain and distention. Patient has also not had a BM in past week. Miller was inserted and pt produced only minimal urine. 12 point ROS are negative except for the above mentioned. PMD Dr Ross PMH: GIST (diagnosed in , has had symptoms since ), HTN, asthma PSH: appendix, BSO, multiple intra-abdominal / intestinal resection of GIST, ventral hernia Meds: MAR reviewed NKDA Social: No ETOH/tobacco/drugs Fhx: GIST - mom, sister, maternal uncle Review of Systems - Constitutional Constitutional: As Per HPI - EENT Eyes: As Per HPI Ears: As Per HPI Nose/Mouth/Throat: As Per HPI - Breasts Breasts: As Per HPI - Cardiovascular Cardiovascular: As Per HPI - Respiratory Respiratory: As Per HPI - Gastrointestinal Gastrointestinal: As Per HPI - Genitourinary Genitourinary: As Per HPI - Musculoskeletal Musculoskeletal: As Per HPI - Integumentary Integumentary: As Per HPI - Neurological Neurological: As Per HPI Past Patient History - Past Medical History & Family History Past Medical History?: Yes - Past Social History Smoking Status: Never Smoked - CARDIAC Hx Cardiac Disorders: Yes Hx Hypertension: Yes - PULMONARY Hx Respiratory Disorders: Yes Hx Asthma: Yes - NEUROLOGICAL Hx Neurological Disorder: No - HEENT Hx HEENT Problems: No - RENAL Hx Chronic Kidney Disease: No - ENDOCRINE/METABOLIC Hx Endocrine Disorders: No - HEMATOLOGICAL/ONCOLOGICAL Hx Blood Disorders: Yes Other/Comment: Gastrointestinal Stromal Tumors - INTEGUMENTARY Hx Dermatological Problems: No - MUSCULOSKELETAL/RHEUMATOLOGICAL Hx Musculoskeletal Disorders: Yes Hx Falls: Yes - GASTROINTESTINAL Hx Gastrointestinal Disorders: Yes Other/Comment: Gastrointestinal Stromal Tumors - GENITOURINARY/GYNECOLOGICAL Hx Genitourinary Disorders: No - PSYCHIATRIC Hx Psychophysiologic Disorder: Yes Hx Anxiety: Yes Hx Substance Use: No - SURGICAL HISTORY Hx Surgeries: Yes Hx Appendectomy: Yes - ANESTHESIA Hx Anesthesia: Yes Hx Anesthesia Reactions: Yes (difficulty to arouse after surgery) Meds Allergies/Adverse Reactions: Allergies Allergy/AdvReac Type Severity Reaction Status Date / Time orange juice Allergy Verified 06/21/17 17:05 - Medications Medications: Current Medications Sodium Chloride (Sodium Chloride 0.9%) 1,000 mls @ 100 mls/hr IV .Q10H [facility] Last Admin: 07/01/17 08:04 Dose: 100 mls/hr Sodium Chloride (Sodium Chloride 0.9%) 1,000 mls @ 1,000 mls/hr IV .Q1H [facility] Stop: 07/01/17 15:28 Mineral Oil (Fleet Mineral Oil Enema) 135 ml RC DAILY PRN PRN Reason: Constipation Last Admin: 07/01/17 08:12 Dose: 135 ml Morphine Sulfate (Morphine) 4 mg IVP Q4 PRN PRN Reason: Pain, moderate (4-7) Last Admin: 07/01/17 11:42 Dose: 4 mg Ondansetron HCl (Zofran Inj) 4 mg IVP Q4 PRN PRN Reason: Nausea/Vomiting Last Admin: 07/01/17 11:58 Dose: 4 mg Pantoprazole Sodium (Protonix Inj) 40 mg IVP DAILY [facility] Last Admin: 07/01/17 09:09 Dose: 40 mg Polyethylene Glycol (Miralax) 17 gm PO TID [facility] Senna/Docusate Sodium (Senokot S 50 Mg-8.6 Mg) 2 tab PO DAILY [facility] Last Admin: 07/01/17 09:09 Dose: 2 tab Physical Exam - Constitutional Appears: No Acute Distress - Head Exam Head Exam: ATRAUMATIC, NORMAL INSPECTION - ENT Exam ENT Exam: Mucous Membranes Dry - Respiratory Exam Respiratory Exam: Clear to Auscultation Bilateral. absent: Rales, Rhonchi, Wheezes - Cardiovascular Exam Cardiovascular Exam: REGULAR RHYTHM, +S1, +S2. absent: Diastolic murmur, Gallop , Rubs, Systolic Murmur - GI/Abdominal Exam GI & Abdominal Exam: Distended, Firm, Normal Bowel Sounds, Tenderness. absent: Rigid - Extremities Exam Extremities exam: Positive for: tenderness (B/L). Negative for: pedal edema - Neurological Exam Neurological exam: Alert, CN II-XII Intact, Oriented x3 - Psychiatric Exam Psychiatric exam: Normal Affect, Normal Mood - Skin Skin Exam: Dry, Intact, Normal Color, Warm Results - Vital Signs Recent Vital Signs: Last Vital Signs Temp 97.7 F 07/01/17 07:05 Pulse 88 07/01/17 07:05 Resp 18 07/01/17 07:05 BP 87/56 L 07/01/17 07:05 Pulse Ox 100 07/01/17 07:05 - Labs Result Diagrams: 07/01/17 11:21 07/01/17 11:53 Labs: Laboratory Results - last 24 hr 06/30/17 06/30/17 06/30/17 17:07 17:07 21:00 WBC 16.8 H RBC 2.20 L Hgb 6.5 L* Hct 19.6 L MCV 89.0 MCH 29.6 MCHC 33.2 RDW 15.0 H Plt Count 128 L MPV 8.5 Neut % (Auto) Lymph % (Auto) Fannin % (Auto) Eos % (Auto) Baso % (Auto) Neut # Lymph # Fannin # Eos # Baso # Neutrophils % (Manual) Band Neutrophils % Lymphocytes % (Manual) Monocytes % (Manual) Myelocytes % Platelet Estimate Polychromasia Anisocytosis (manual) PT 11.3 INR 1.0 APTT 24 Fibrinogen 388 Sodium Potassium Chloride Carbon Dioxide Anion Gap BUN Creatinine Est GFR ( Amer) Est GFR (Non-Af Amer) Random Glucose Calcium Total Bilirubin AST ALT Alkaline Phosphatase Total Protein Albumin Globulin Albumin/Globulin Ratio Blood Type B POSITIVE Antibody Screen Negative 07/01/17 07/01/17 07/01/17 11:21 11:21 11:53 WBC 17.3 H RBC 2.30 L Hgb 6.9 L Hct 20.8 L MCV 90.4 MCH 30.0 MCHC 33.1 RDW 15.2 H Plt Count 138 MPV 9.0 Neut % (Auto) 88.5 H Lymph % (Auto) 5.4 L Fannin % (Auto) 6.0 Eos % (Auto) 0.0 Baso % (Auto) 0.1 Neut # 15.3 H Lymph # 0.9 L Fannin # 1.0 H Eos # 0.0 Baso # 0.0 Neutrophils % (Manual) 86 H Band Neutrophils % 2 Lymphocytes % (Manual) 6 L Monocytes % (Manual) 4 Myelocytes % 2 H Platelet Estimate Normal Polychromasia Slight Anisocytosis (manual) Slight PT 11.1 INR 1.0 APTT 23 Fibrinogen 376 Sodium 127 L Potassium 5.5 H Chloride 97 L Carbon Dioxide 21 L Anion Gap 15 BUN 59 H Creatinine 3.0 H Est GFR ( Amer) 19 Est GFR (Non-Af Amer) 16 Random Glucose 104 Calcium 7.5 L Total Bilirubin 1.4 H AST 105 H D ALT 74 H D Alkaline Phosphatase 202 H Total Protein 5.0 L Albumin 2.7 L Globulin 2.3 Albumin/Globulin Ratio 1.2 Blood Type Antibody Screen Assessment & Plan - Assessment and Plan (Free Text) Assessment: 57 year old female with past medical history of GIST tumor with mets, HTN is being seen for TANIA. Plan: 1. TANIA - Likely pre-renal damage due to hypotension. Patient initially presented with normal kidney function - Patient is developing hypovolemic shock. Patient is given 2 L bolus of IV fluids - Miller catheter is inserted - Will check UA, urine culture, urine electrolytes once urine sample is obtained from pt 2. Hypovolemic shock - Patient is being fluid resuscited - Patient will undergo CTA of abd/pelvis to determine the etiology of the bleed - Will transfuse 2 units of PRBC - Pt will receive acetylcyseine 1200 IVPB before contrast administration - Senior Budget Analyst is consulted. Pt will be transferred to ICU 3. Anemia - Will do CTA to identify the source of the bleed - transfuse 2 more units of PRBC 4. GIST with metastisis - Heme/onc is consulted. Recommend Imatinib treatment - No surgical intervention planned at this point 5. Transaminitis - Likely due to hepatic lesions. - GI is consulted All recs and orders per Dr. Lewis - Date & Time Date: 07/01/17 Time: 17:42 <Brad Lewis - Last Filed: 07/02/17 08:30> Meds - Medications Medications: Current Medications Sodium Chloride (Sodium Chloride 0.9%) 1,000 mls @ 150 mls/hr IV .Q6H40M [facility] Last Admin: 07/02/17 06:00 Dose: 150 mls/hr Mineral Oil (Fleet Mineral Oil Enema) 135 ml RC DAILY PRN PRN Reason: Constipation Last Admin: 07/01/17 08:12 Dose: 135 ml Morphine Sulfate (Morphine) 4 mg IVP Q4 PRN PRN Reason: Pain, moderate (4-7) Last Admin: 07/02/17 01:47 Dose: 4 mg Ondansetron HCl (Zofran Inj) 4 mg IVP Q4 PRN PRN Reason: Nausea/Vomiting Last Admin: 07/01/17 11:58 Dose: 4 mg Pantoprazole Sodium (Protonix Inj) 40 mg IVP DAILY [facility] Last Admin: 07/01/17 09:09 Dose: 40 mg Polyethylene Glycol (Miralax) 17 gm PO TID [facility] Last Admin: 07/01/17 20:00 Dose: Not Given Senna/Docusate Sodium (Senokot S 50 Mg-8.6 Mg) 2 tab PO DAILY [facility] Last Admin: 07/01/17 09:09 Dose: 2 tab Results - Vital Signs Recent Vital Signs: Last Vital Signs Temp 98.2 F 07/02/17 04:00 Pulse 87 07/02/17 06:00 Resp 24 07/02/17 04:00 BP 81/44 L 07/02/17 04:00 Pulse Ox 97 07/02/17 04:00 - Labs Result Diagrams: 07/02/17 06:21 07/02/17 06:21 Labs: Laboratory Results - last 24 hr 06/30/17 07/01/17 07/01/17 21:00 11:21 11:21 WBC 17.3 H RBC 2.30 L Hgb 6.9 L Hct 20.8 L MCV 90.4 MCH 30.0 MCHC 33.1 RDW 15.2 H Plt Count 138 MPV 9.0 Neut % (Auto) 88.5 H Lymph % (Auto) 5.4 L Fannin % (Auto) 6.0 Eos % (Auto) 0.0 Baso % (Auto) 0.1 Neut # 15.3 H Lymph # 0.9 L Fannin # 1.0 H Eos # 0.0 Baso # 0.0 Neutrophils % (Manual) 86 H Band Neutrophils % 2 Lymphocytes % (Manual) 6 L Monocytes % (Manual) 4 Myelocytes % 2 H Platelet Estimate Normal Polychromasia Slight Hypochromasia (manual) Anisocytosis (manual) Slight Macrocytosis (manual) PT 11.1 INR 1.0 APTT 23 Fibrinogen 376 Puncture Site pCO2 pO2 HCO3 ABG pH ABG Total CO2 ABG O2 Saturation ABG Base Excess ABG Hemoglobin ABG Carboxyhemoglobin POC ABG HHb (Measured) ABG Methemoglobin Clark Test A-a O2 Difference Respiratory Index Hgb O2 Saturation FiO2 Crit Value Called To Crit Value Called By Crit Value Read Back Blood Gas Notified Time Sodium Potassium Chloride Carbon Dioxide Anion Gap BUN Creatinine Est GFR ( Amer) Est GFR (Non-Af Amer) Random Glucose Lactic Acid Calcium Phosphorus Magnesium Total Bilirubin AST ALT Alkaline Phosphatase Total Protein Albumin Globulin Albumin/Globulin Ratio Blood Type B POSITIVE Antibody Screen Negative 07/01/17 07/01/17 07/01/17 11:53 15:25 16:40 WBC RBC Hgb Hct MCV MCH MCHC RDW Plt Count MPV Neut % (Auto) Lymph % (Auto) Fannin % (Auto) Eos % (Auto) Baso % (Auto) Neut # Lymph # Fannin # Eos # Baso # Neutrophils % (Manual) Band Neutrophils % Lymphocytes % (Manual) Monocytes % (Manual) Myelocytes % Platelet Estimate Polychromasia Hypochromasia (manual) Anisocytosis (manual) Macrocytosis (manual) PT INR APTT Fibrinogen Puncture Site Lra pCO2 31 L pO2 171 H HCO3 19.3 L ABG pH 7.36 ABG Total CO2 18.5 L ABG O2 Saturation 99.1 H ABG Base Excess -7.3 L ABG Hemoglobin 5.4 L ABG Carboxyhemoglobin 1.6 H POC ABG HHb (Measured) 0.9 ABG Methemoglobin 1.0 Clark Test Yes A-a O2 Difference 75.0 Respiratory Index 0.4 Hgb O2 Saturation 96.6 FiO2 40.0 Crit Value Called To Sophia Crit Value Called By Toña buitrago Crit Value Read Back Y Blood Gas Notified Time 1652 Sodium 127 L Potassium 5.5 H Chloride 97 L Carbon Dioxide 21 L Anion Gap 15 BUN 59 H Creatinine 3.0 H Est GFR ( Amer) 19 Est GFR (Non-Af Amer) 16 Random Glucose 104 Lactic Acid 1.3 Calcium 7.5 L Phosphorus Magnesium Total Bilirubin 1.4 H AST 105 H D ALT 74 H D Alkaline Phosphatase 202 H Total Protein 5.0 L Albumin 2.7 L Globulin 2.3 Albumin/Globulin Ratio 1.2 Blood Type Antibody Screen 07/01/17 07/02/17 07/02/17 17:28 06:21 06:21 WBC 17.2 H 17.2 H RBC 2.00 L 2.63 L Hgb 5.8 L* 7.8 L D Hct 18.2 L 23.8 L MCV 91.1 90.8 MCH 29.2 29.6 MCHC 32.1 L 32.6 L RDW 15.4 H 14.5 Plt Count 140 130 MPV 8.8 8.7 Neut % (Auto) 88.9 H 87.9 H Lymph % (Auto) 4.3 L 4.9 L Fannin % (Auto) 6.0 7.0 Eos % (Auto) 0.5 0.0 Baso % (Auto) 0.3 0.2 Neut # 15.3 H 15.1 H Lymph # 0.7 L 0.8 L Fannin # 1.0 H 1.2 H Eos # 0.1 0.0 Baso # 0.1 0.0 Neutrophils % (Manual) 83 H Band Neutrophils % 2 Lymphocytes % (Manual) 5 L Monocytes % (Manual) 10 Myelocytes % Platelet Estimate Normal Polychromasia Slight Hypochromasia (manual) Slight Anisocytosis (manual) Slight Macrocytosis (manual) Slight PT INR APTT Fibrinogen Puncture Site pCO2 pO2 HCO3 ABG pH ABG Total CO2 ABG O2 Saturation ABG Base Excess ABG Hemoglobin ABG Carboxyhemoglobin POC ABG HHb (Measured) ABG Methemoglobin Clark Test A-a O2 Difference Respiratory Index Hgb O2 Saturation FiO2 Crit Value Called To Crit Value Called By Crit Value Read Back Blood Gas Notified Time Sodium 129 L Potassium 5.8 H Chloride 100 Carbon Dioxide 17 L Anion Gap 18 BUN 64 H Creatinine 3.9 H Est GFR ( Amer) 14 Est GFR (Non-Af Amer) 12 Random Glucose 105 Lactic Acid Calcium 6.9 L Phosphorus 8.8 H Magnesium 2.6 H Total Bilirubin 1.1 AST 177 H D ALT 118 H D Alkaline Phosphatase 178 H Total Protein 4.7 L Albumin 2.5 L Globulin 2.2 Albumin/Globulin Ratio 1.2 Blood Type Antibody Screen 07/02/17 06:27 WBC RBC Hgb Hct MCV MCH MCHC RDW Plt Count MPV Neut % (Auto) Lymph % (Auto) Fannin % (Auto) Eos % (Auto) Baso % (Auto) Neut # Lymph # Fannin # Eos # Baso # Neutrophils % (Manual) Band Neutrophils % Lymphocytes % (Manual) Monocytes % (Manual) Myelocytes % Platelet Estimate Polychromasia Hypochromasia (manual) Anisocytosis (manual) Macrocytosis (manual) PT 11.5 INR 1.0 APTT 23 Fibrinogen Puncture Site pCO2 pO2 HCO3 ABG pH ABG Total CO2 ABG O2 Saturation ABG Base Excess ABG Hemoglobin ABG Carboxyhemoglobin POC ABG HHb (Measured) ABG Methemoglobin Clark Test A-a O2 Difference Respiratory Index Hgb O2 Saturation FiO2 Crit Value Called To Crit Value Called By Crit Value Read Back Blood Gas Notified Time Sodium Potassium Chloride Carbon Dioxide Anion Gap BUN Creatinine Est GFR ( Amer) Est GFR (Non-Af Amer) Random Glucose Lactic Acid Calcium Phosphorus Magnesium Total Bilirubin AST ALT Alkaline Phosphatase Total Protein Albumin Globulin Albumin/Globulin Ratio Blood Type Antibody Screen Attending/Attestation - Attestation I have personally seen and examined this patient.: Yes I have fully participated in the care of the patient.: Yes I have reviewed all pertinent clinical information: Yes Notes (Text): Patient seen and examined; I agree with the resident's note as above with the following edits/additions: 57 yo F w/ pmh of metastatic GIST tumor, admitted with epigastric pain radiating to her back and anemia with multiple prbc transfusions being given during this admission but Hgb continuing to drop due to intra-abdominal hemorrhage; nephrology consulted urgently today in the setting of worsening renal function and need for possible angiography with IV dye administration; Patient today is hypotensive with SBP in 80's and complaining on sob while on venti-mask but is mentating well; Exam is limited due to patient's distress, large body habitus and positioning; Likely etiology of TANIA is pre-renal in the setting of hemorrhagic shock; patient needs control of bleeding and so CT angiography to determine site of bleed should be done on an emergent basis despite risk of worsening TANIA; -giving 2 L NS bolus prior to IV dye study; giving acetylcysteine 1200 mg IV as prophylactic measure as well -ordering 2 u prbc transfusion -placing miller and checking urine lytes Patient with mild hyperkalemia; will monitor for now; no urgent indication for initiating [employer] at this time but will need to re-assess shortly;
[2017-07-01] MEDS ORDERED: DEXTROSE 5% IVPB STA (15:42)
[2017-07-01] MEDS ORDERED: ACETYLCYSTEINE IVPB STA (15:42)
[2017-07-01] MEDS ORDERED: WATER IVPB STA (15:42)
--- NOTE | 2017-07-01 16:45 | RAD ---
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 The asymmetrically elevated right hemidiaphragm almost to the mid right hemithoracic height is renoted. No interval gross consolidation. PLEURA: No pneumothorax or pleural fluid seen. CARDIOVASCULAR: Cardiomegaly. Minimal concomitant pulmonary venous congestion under crowding and/or summation due to large body habitus-all possible OSSEOUS STRUCTURES: No significant abnormalities. VISUALIZED UPPER ABDOMEN: Normal. OTHER FINDINGS: None. IMPRESSION: Limited exam -for reasons stated above. The asymmetrically right hemidiaphragm is similar. It is difficult to exclude any concomitant underlying pathology at this right lung base because of this and because of patient's body habitus and portable technique. Cardiomegaly. Possible minimal concomitant pulmonary venous congestion chronicity unknown
[2017-07-01 16:52] LABS: ABG ALLEN TEST YES; ARTERIAL BLOOD HGB O2 SAT 96.6 % (95.0-98.0); CARBOXYHEMOGLOBIN 1.6 % (0.5-1.5); DRAW SITE LRA; HHB 0.9 % (0.0-5.0)
[2017-07-01] MEDS ORDERED: Iodixanol 320 MG/ML 100 ML BOTTLE IV ONE (17:15)
--- NOTE | 2017-07-01 17:15 | CP.CCUPN ---
CCU Subjective - Physician Review Events Since Last Encounter (Free Text): 07/01/17 17:07 57yo F. PMHx HTN, asthma, HTN, morbid obesity, NYHA class 3. 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 Has been transfused for several days, 10 units PRBC, to control bleeding, without success. Transferring to ICU for further management. CCU Objective - Vital Signs / Intake & Output Vital Signs (Last 4 hours): Vital Signs Temp Pulse Resp BP Pulse Ox 07/01/17 15:11 97.3 F L 89 18 85/53 L 100 Intake and Output (Last 8hrs): Intake & Output 07/01/17 07/01/17 07/01/17 06:59 14:59 22:59 Intake Total 1105 Balance 1105 Intake: Intake, IV Amount 250 Right Forearm 250 Oral 480 Blood Product 325 Red Blood Cells Cpd As1 325 Lr Unit [id number] Other 50 Red Blood Cells Cpd As1 50 Lr Unit [id number] Other: # Voids Urine, Voided 2 - Medications Active Medications: Active Medications Generic Name Dose Route Start Last Admin Trade Name Freq PRN Reason Stop Dose Admin Sodium Chloride 1,000 mls @ 1,000 mls/hr 07/01/17 16:09 Sodium Chloride 0.9% IV 07/01/17 17:08 .Q1H ONE Sodium Chloride 1,000 mls @ 150 mls/hr 07/01/17 17:00 Sodium Chloride 0.9% IV .Q6H40M TIN Mineral Oil 135 ml 06/27/17 08:25 07/01/17 08:12 Fleet Mineral Oil Enema RC 135 ml DAILY PRN Administration Constipation Morphine Sulfate 4 mg 06/28/17 23:26 07/01/17 11:42 Morphine IVP 4 mg Q4 PRN Administration Pain, moderate (4-7) Ondansetron HCl 4 mg 06/22/17 00:39 07/01/17 11:58 Zofran Inj IVP 4 mg Q4 PRN Administration Nausea/Vomiting Pantoprazole Sodium 40 mg 06/23/17 12:00 07/01/17 09:09 Protonix Inj IVP 40 mg DAILY TIN Administration Polyethylene Glycol 17 gm 07/01/17 14:00 07/01/17 14:00 Miralax PO Not Given TID TIN Senna/Docusate Sodium 2 tab 06/23/17 18:30 07/01/17 09:09 Senokot S 50 Mg-8.6 Mg PO 2 tab DAILY TIN Administration - Patient Studies Lab Studies: Microbiology Studies 06/29/17 12:50 Gram Stain - Final Body Fluid - Ascites Fluid Body Fluid Culture - Preliminary NO GROWTH AFTER 2 DAYS Lab Studies 07/01/17 07/01/17 07/01/17 Range/Units 16:40 15:25 11:53 WBC (4.8-10.8) K/uL RBC (3.80-5.20) Mil/uL Hgb (11.0-16.0) g/dL Hct (34.0-47.0) % MCV (81.0-99.0) fL MCH (27.0-31.0) pg MCHC (33.0-37.0) g/dL RDW (11.5-14.5) % Plt Count (130-400) K/uL MPV (7.2-11.7) fL Neut % (Auto) (50.0-75.0) % Lymph % (Auto) (20.0-40.0) % Boyd % (Auto) (0.0-10.0) % Eos % (Auto) (0.0-4.0) % Baso % (Auto) (0.0-2.0) % Neut # (1.8-7.0) K/uL Lymph # (1.0-4.3) K/uL Boyd # (0.0-0.8) K/uL Eos # (0.0-0.7) K/uL Baso # (0.0-0.2) K/uL Neutrophils % (Manual) (50-75) % Band Neutrophils % (0-2) % Lymphocytes % (Manual) (20-40) % Monocytes % (Manual) (0-10) % Myelocytes % (0-0) % Platelet Estimate (NORMAL) Polychromasia Anisocytosis (manual) PT (9.7-12.2) SECONDS INR APTT (21-34) SECONDS Fibrinogen (200-400) mg/dL Puncture Site Lra pCO2 31 L (35-45) mm/Hg pO2 171 H (80-100) mm/Hg HCO3 19.3 L (21-28) mmol/L ABG pH 7.36 (7.35-7.45) ABG Total CO2 18.5 L (22-28) mmol/L ABG O2 Saturation 99.1 H (95-98) % ABG Base Excess -7.3 L (-2.0-3.0) mmol/L ABG Hemoglobin 5.4 L (11.7-17.4) g/dL ABG Carboxyhemoglobin 1.6 H (0.5-1.5) % POC ABG HHb (Measured) 0.9 (0.0-5.0) % ABG Methemoglobin 1.0 (0.0-3.0) % Clark Test Yes A-a O2 Difference 75.0 mm/Hg Respiratory Index 0.4 Hgb O2 Saturation 96.6 (95.0-98.0) % FiO2 40.0 % Crit Value Called To Sophia Crit Value Called By Toña buitrago Crit Value Read Back Y Blood Gas Notified Time 1652 Sodium 127 L (132-148) mmol/L Potassium 5.5 H (3.6-5.2) mmol/L Chloride 97 L (98-107) mmol/L Carbon Dioxide 21 L (22-30) mmol/L Anion Gap 15 (10-20) BUN 59 H (7-17) mg/dL Creatinine 3.0 H (0.7-1.2) mg/dL Est GFR ( Amer) 19 Est GFR (Non-Af Amer) 16 Random Glucose 104 (65-105) mg/dL Lactic Acid 1.3 (0.7-2.1) mmol/L Calcium 7.5 L (8.6-10.4) mg/dl Total Bilirubin 1.4 H (0.2-1.3) mg/dL AST 105 H D (14-36) U/L ALT 74 H D (9-52) U/L Alkaline Phosphatase 202 H (38-126) U/L Total Protein 5.0 L (6.3-8.3) g/dL Albumin 2.7 L (3.5-5.0) g/dL Globulin 2.3 (2.2-3.9) gm/dL Albumin/Globulin Ratio 1.2 (1.0-2.1) Blood Type Antibody Screen 07/01/17 07/01/17 06/30/17 Range/Units 11:21 11:21 21:00 WBC 17.3 H (4.8-10.8) K/uL RBC 2.30 L (3.80-5.20) Mil/uL Hgb 6.9 L (11.0-16.0) g/dL Hct 20.8 L (34.0-47.0) % MCV 90.4 (81.0-99.0) fL MCH 30.0 (27.0-31.0) pg MCHC 33.1 (33.0-37.0) g/dL RDW 15.2 H (11.5-14.5) % Plt Count 138 (130-400) K/uL MPV 9.0 (7.2-11.7) fL Neut % (Auto) 88.5 H (50.0-75.0) % Lymph % (Auto) 5.4 L (20.0-40.0) % Boyd % (Auto) 6.0 (0.0-10.0) % Eos % (Auto) 0.0 (0.0-4.0) % Baso % (Auto) 0.1 (0.0-2.0) % Neut # 15.3 H (1.8-7.0) K/uL Lymph # 0.9 L (1.0-4.3) K/uL Boyd # 1.0 H (0.0-0.8) K/uL Eos # 0.0 (0.0-0.7) K/uL Baso # 0.0 (0.0-0.2) K/uL Neutrophils % (Manual) 86 H (50-75) % Band Neutrophils % 2 (0-2) % Lymphocytes % (Manual) 6 L (20-40) % Monocytes % (Manual) 4 (0-10) % Myelocytes % 2 H (0-0) % Platelet Estimate Normal (NORMAL) Polychromasia Slight Anisocytosis (manual) Slight PT 11.1 (9.7-12.2) SECONDS INR 1.0 APTT 23 (21-34) SECONDS Fibrinogen 376 (200-400) mg/dL Puncture Site pCO2 (35-45) mm/Hg pO2 (80-100) mm/Hg HCO3 (21-28) mmol/L ABG pH (7.35-7.45) ABG Total CO2 (22-28) mmol/L ABG O2 Saturation (95-98) % ABG Base Excess (-2.0-3.0) mmol/L ABG Hemoglobin (11.7-17.4) g/dL ABG Carboxyhemoglobin (0.5-1.5) % POC ABG HHb (Measured) (0.0-5.0) % ABG Methemoglobin (0.0-3.0) % Clark Test A-a O2 Difference mm/Hg Respiratory Index Hgb O2 Saturation (95.0-98.0) % FiO2 % Crit Value Called To Crit Value Called By Crit Value Read Back Blood Gas Notified Time Sodium (132-148) mmol/L Potassium (3.6-5.2) mmol/L Chloride (98-107) mmol/L Carbon Dioxide (22-30) mmol/L Anion Gap (10-20) BUN (7-17) mg/dL Creatinine (0.7-1.2) mg/dL Est GFR ( Amer) Est GFR (Non-Af Amer) Random Glucose (65-105) mg/dL Lactic Acid (0.7-2.1) mmol/L Calcium (8.6-10.4) mg/dl Total Bilirubin (0.2-1.3) mg/dL AST (14-36) U/L ALT (9-52) U/L Alkaline Phosphatase (38-126) U/L Total Protein (6.3-8.3) g/dL Albumin (3.5-5.0) g/dL Globulin (2.2-3.9) gm/dL Albumin/Globulin Ratio (1.0-2.1) Blood Type B POSITIVE Antibody Screen Negative 06/30/17 06/30/17 Range/Units 17:07 17:07 WBC 16.8 H (4.8-10.8) K/uL RBC 2.20 L (3.80-5.20) Mil/uL Hgb 6.5 L* (11.0-16.0) g/dL Hct 19.6 L (34.0-47.0) % MCV 89.0 (81.0-99.0) fL MCH 29.6 (27.0-31.0) pg MCHC 33.2 (33.0-37.0) g/dL RDW 15.0 H (11.5-14.5) % Plt Count 128 L (130-400) K/uL MPV 8.5 (7.2-11.7) fL Neut % (Auto) (50.0-75.0) % Lymph % (Auto) (20.0-40.0) % Boyd % (Auto) (0.0-10.0) % Eos % (Auto) (0.0-4.0) % Baso % (Auto) (0.0-2.0) % Neut # (1.8-7.0) K/uL Lymph # (1.0-4.3) K/uL Boyd # (0.0-0.8) K/uL Eos # (0.0-0.7) K/uL Baso # (0.0-0.2) K/uL Neutrophils % (Manual) (50-75) % Band Neutrophils % (0-2) % Lymphocytes % (Manual) (20-40) % Monocytes % (Manual) (0-10) % Myelocytes % (0-0) % Platelet Estimate (NORMAL) Polychromasia Anisocytosis (manual) PT 11.3 (9.7-12.2) SECONDS INR 1.0 APTT 24 (21-34) SECONDS Fibrinogen 388 (200-400) mg/dL Puncture Site pCO2 (35-45) mm/Hg pO2 (80-100) mm/Hg HCO3 (21-28) mmol/L ABG pH (7.35-7.45) ABG Total CO2 (22-28) mmol/L ABG O2 Saturation (95-98) % ABG Base Excess (-2.0-3.0) mmol/L ABG Hemoglobin (11.7-17.4) g/dL ABG Carboxyhemoglobin (0.5-1.5) % POC ABG HHb (Measured) (0.0-5.0) % ABG Methemoglobin (0.0-3.0) % Clark Test A-a O2 Difference mm/Hg Respiratory Index Hgb O2 Saturation (95.0-98.0) % FiO2 % Crit Value Called To Crit Value Called By Crit Value Read Back Blood Gas Notified Time Sodium (132-148) mmol/L Potassium (3.6-5.2) mmol/L Chloride (98-107) mmol/L Carbon Dioxide (22-30) mmol/L Anion Gap (10-20) BUN (7-17) mg/dL Creatinine (0.7-1.2) mg/dL Est GFR ( Amer) Est GFR (Non-Af Amer) Random Glucose (65-105) mg/dL Lactic Acid (0.7-2.1) mmol/L Calcium (8.6-10.4) mg/dl Total Bilirubin (0.2-1.3) mg/dL AST (14-36) U/L ALT (9-52) U/L Alkaline Phosphatase (38-126) U/L Total Protein (6.3-8.3) g/dL Albumin (3.5-5.0) g/dL Globulin (2.2-3.9) gm/dL Albumin/Globulin Ratio (1.0-2.1) Blood Type Antibody Screen Laboratory Results - last 24 hr 06/30/17 06/30/17 06/30/17 17:07 17:07 21:00 WBC 16.8 H RBC 2.20 L Hgb 6.5 L* Hct 19.6 L MCV 89.0 MCH 29.6 MCHC 33.2 RDW 15.0 H Plt Count 128 L MPV 8.5 Neut % (Auto) Lymph % (Auto) Boyd % (Auto) Eos % (Auto) Baso % (Auto) Neut # Lymph # Boyd # Eos # Baso # Neutrophils % (Manual) Band Neutrophils % Lymphocytes % (Manual) Monocytes % (Manual) Myelocytes % Platelet Estimate Polychromasia Anisocytosis (manual) PT 11.3 INR 1.0 APTT 24 Fibrinogen 388 Puncture Site pCO2 pO2 HCO3 ABG pH ABG Total CO2 ABG O2 Saturation ABG Base Excess ABG Hemoglobin ABG Carboxyhemoglobin POC ABG HHb (Measured) ABG Methemoglobin Clark Test A-a O2 Difference Respiratory Index Hgb O2 Saturation FiO2 Crit Value Called To Crit Value Called By Crit Value Read Back Blood Gas Notified Time Sodium Potassium Chloride Carbon Dioxide Anion Gap BUN Creatinine Est GFR ( Amer) Est GFR (Non-Af Amer) Random Glucose Lactic Acid Calcium Total Bilirubin AST ALT Alkaline Phosphatase Total Protein Albumin Globulin Albumin/Globulin Ratio Blood Type B POSITIVE Antibody Screen Negative 07/01/17 07/01/17 07/01/17 11:21 11:21 11:53 WBC 17.3 H RBC 2.30 L Hgb 6.9 L Hct 20.8 L MCV 90.4 MCH 30.0 MCHC 33.1 RDW 15.2 H Plt Count 138 MPV 9.0 Neut % (Auto) 88.5 H Lymph % (Auto) 5.4 L Boyd % (Auto) 6.0 Eos % (Auto) 0.0 Baso % (Auto) 0.1 Neut # 15.3 H Lymph # 0.9 L Boyd # 1.0 H Eos # 0.0 Baso # 0.0 Neutrophils % (Manual) 86 H Band Neutrophils % 2 Lymphocytes % (Manual) 6 L Monocytes % (Manual) 4 Myelocytes % 2 H Platelet Estimate Normal Polychromasia Slight Anisocytosis (manual) Slight PT 11.1 INR 1.0 APTT 23 Fibrinogen 376 Puncture Site pCO2 pO2 HCO3 ABG pH ABG Total CO2 ABG O2 Saturation ABG Base Excess ABG Hemoglobin ABG Carboxyhemoglobin POC ABG HHb (Measured) ABG Methemoglobin Clark Test A-a O2 Difference Respiratory Index Hgb O2 Saturation FiO2 Crit Value Called To Crit Value Called By Crit Value Read Back Blood Gas Notified Time Sodium 127 L Potassium 5.5 H Chloride 97 L Carbon Dioxide 21 L Anion Gap 15 BUN 59 H Creatinine 3.0 H Est GFR ( Amer) 19 Est GFR (Non-Af Amer) 16 Random Glucose 104 Lactic Acid Calcium 7.5 L Total Bilirubin 1.4 H AST 105 H D ALT 74 H D Alkaline Phosphatase 202 H Total Protein 5.0 L Albumin 2.7 L Globulin 2.3 Albumin/Globulin Ratio 1.2 Blood Type Antibody Screen 07/01/17 07/01/17 15:25 16:40 WBC RBC Hgb Hct MCV MCH MCHC RDW Plt Count MPV Neut % (Auto) Lymph % (Auto) Boyd % (Auto) Eos % (Auto) Baso % (Auto) Neut # Lymph # Boyd # Eos # Baso # Neutrophils % (Manual) Band Neutrophils % Lymphocytes % (Manual) Monocytes % (Manual) Myelocytes % Platelet Estimate Polychromasia Anisocytosis (manual) PT INR APTT Fibrinogen Puncture Site Lra pCO2 31 L pO2 171 H HCO3 19.3 L ABG pH 7.36 ABG Total CO2 18.5 L ABG O2 Saturation 99.1 H ABG Base Excess -7.3 L ABG Hemoglobin 5.4 L ABG Carboxyhemoglobin 1.6 H POC ABG HHb (Measured) 0.9 ABG Methemoglobin 1.0 Clark Test Yes A-a O2 Difference 75.0 Respiratory Index 0.4 Hgb O2 Saturation 96.6 FiO2 40.0 Crit Value Called To Sophia Crit Value Called By Toña buitrago Crit Value Read Back Y Blood Gas Notified Time 165 Sodium Potassium Chloride Carbon Dioxide Anion Gap BUN Creatinine Est GFR ( Amer) Est GFR (Non-Af Amer) Random Glucose Lactic Acid 1.3 Calcium Total Bilirubin AST ALT Alkaline Phosphatase Total Protein Albumin Globulin Albumin/Globulin Ratio Blood Type Antibody Screen Critical Care Progress Note - Nutrition Nutrition: Nutrition Category Date Time Status Heart Healthy Diet [DIET] Diets 06/25/17 Dinner Active Assessment/Plan (1) Gastrointestinal stromal neoplasm Assessment and plan: 57yo F. PMHx HTN, asthma, HTN, morbid obesity, NYHA class 3. 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 Has been transfused for several days, 10 units PRBC, to control bleeding, without success. Neuro: alert and oriented x 3 Pulm: no acute issues, breathing spontaneously on nasal canula oxygen. CV: hypotensive from acute blood loss Hem: acute blood loss anemia Renal: acute kidney injury, secondary to hypoperfusion. Endo: no acute issues issuse GI: NPO. Obtaining CT angio abdomen pelvis, to r/o intrabdominal bleeding. If source determined then possible interventional embolization. If no acute source , patient may have diffuse intrabdominal bleeding from intraperitoneal mets. ID: No acute issues DVT proph - SCD's, no a/c with current bleed GI proph - protonix miller for strict I/O's during acute illness Code status - full code Patient has an extremely poor prognosis. Mortality risk is high. She wants everything done to keep her alive. MCC directives will be decided by her brother. Critical Care Time spent 35 minutes Multi-disciplinary rounds were performed with house staff, nursing, speech therapy, respiratory therapy, pharmacy and nutrition with integrated input from the primary team/attending and other consulting services. The documented time is cumulative and includes review of patient data/exams/labs/chart review and examination of the patient on rounds and throughout the day; time is exclusive of any procedures or teaching time. Current Visit: Yes Status: Acute
[2017-07-01 17:33] LABS: BASO # 0.1 K/uL (0.0-0.2); BASO % 0.3 % (0.0-2.0); EOS # 0.1 K/uL (0.0-0.7); EOS % 0.5 % (0.0-4.0); HEMATOCRIT 18.2 % (34.0-47.0); LYMPH # 0.7 K/uL (1.0-4.3); LYMPH % 4.3 % (20.0-40.0); MEAN CELL VOLUME 91.1 fL (81.0-99.0); MEAN CORPUSCULAR HEMOGLOBIN 29.2 pg (27.0-31.0); MEAN CORPUSCULAR HGB CONC 32.1 g/dL (33.0-37.0); MEAN PLATELET VOLUME 8.8 fL (7.2-11.7); NRBC % 0.6 % (0.0-2.0); PLATELET COUNT 140 K/uL (130-400); RED CELL DISTRIBUTION WIDTH 15.4 % (11.5-14.5); WHITE BLOOD COUNT 17.2 K/uL (4.8-10.8)
--- NOTE | 2017-07-01 18:16 | CP.PCM.PN ---
Subjective - Date & Time of Evaluation Date of Evaluation: 07/01/17 Time of Evaluation: 18:12 - Subjective Subjective: The patient was seen in the morning, unable to tolerate any Po, nauseous, unable to sit up,very weak, c/o SOB on sitting up. She is vomiting all liquids she drinks, mainly clear. Objective - Vital Signs/Intake and Output Vital Signs (last 24 hours): Temp Pulse Resp BP Pulse Ox 97.3 F L 89 18 85/53 L 100 07/01/17 15:11 07/01/17 15:11 07/01/17 15:11 07/01/17 15:11 07/01/17 15:11 Intake and Output: 07/01/17 07/01/17 06:59 18:59 Intake Total 1105 2900 Balance 1105 2900 - Medications Medications: Current Medications Sodium Chloride (Sodium Chloride 0.9%) 1,000 mls @ 150 mls/hr IV .Q6H40M [facility] TO [facility] Mineral Oil (Fleet Mineral Oil Enema) 135 ml RC DAILY PRN PRN Reason: Constipation Last Admin: 07/01/17 08:12 Dose: 135 ml Morphine Sulfate (Morphine) 4 mg IVP Q4 PRN PRN Reason: Pain, moderate (4-7) Last Admin: 07/01/17 11:42 Dose: 4 mg Ondansetron HCl (Zofran Inj) 4 mg IVP Q4 PRN PRN Reason: Nausea/Vomiting Last Admin: 07/01/17 11:58 Dose: 4 mg Pantoprazole Sodium (Protonix Inj) 40 mg IVP DAILY [facility] Last Admin: 07/01/17 09:09 Dose: 40 mg Polyethylene Glycol (Miralax) 17 gm PO TID [facility] Last Admin: 07/01/17 14:00 Dose: Not Given Senna/Docusate Sodium (Senokot S 50 Mg-8.6 Mg) 2 tab PO DAILY [facility] Last Admin: 07/01/17 09:09 Dose: 2 tab - Labs Labs: 07/01/17 17:28 07/01/17 11:53 PT 11.1 SECONDS (9.7-12.2) 07/01/17 11:21 INR 1.0 07/01/17 11:21 APTT 23 SECONDS (21-34) 07/01/17 11:21 Assessment and Plan (1) Gastrointestinal stromal neoplasm Assessment & Plan: Gist, in the stomach, with intraperitoneal bleeding ?? from metastatic GIST versus second primary, await peritoneal fluid cytology. The patient has clinically deteriorated, with SOB on moinimal exertion, worsening of liver and kidney function with persistently dropping hemoglobin from intraperitoneal bleeding. She is getting daily transfusions of PRBCs and now FFPs, her coags and platelet count still remain normal. Will continue to transfuse, if she has a second malignancy, overall prognosis is dismal. Have tried to reach family(NOK) to explain patient's worsening status, unable to talk to them or leave message. Status: Acute
--- NOTE | 2017-07-01 18:24 | CP.PCM.CON ---
History of Present Illness - History of Present Illness History of Present Illness: Reason for consultation: shortness of breath Patient is being transferred to intensive care unit for GI bleed, anemia and shortness of breath. Shortness of breath most likely secondary to anemia Further management in the intensive care unit as per agricultural appraiser Past Patient History - Past Medical History & Family History Past Medical History?: Yes - Past Social History Smoking Status: Never Smoked - CARDIAC Hx Cardiac Disorders: Yes Hx Hypertension: Yes - PULMONARY Hx Respiratory Disorders: Yes Hx Asthma: Yes - NEUROLOGICAL Hx Neurological Disorder: No - HEENT Hx HEENT Problems: No - RENAL Hx Chronic Kidney Disease: No - ENDOCRINE/METABOLIC Hx Endocrine Disorders: No - HEMATOLOGICAL/ONCOLOGICAL Hx Blood Disorders: Yes Other/Comment: Gastrointestinal Stromal Tumors - INTEGUMENTARY Hx Dermatological Problems: No - MUSCULOSKELETAL/RHEUMATOLOGICAL Hx Musculoskeletal Disorders: Yes Hx Falls: Yes - GASTROINTESTINAL Hx Gastrointestinal Disorders: Yes Other/Comment: Gastrointestinal Stromal Tumors - GENITOURINARY/GYNECOLOGICAL Hx Genitourinary Disorders: No - PSYCHIATRIC Hx Psychophysiologic Disorder: Yes Hx Anxiety: Yes Hx Substance Use: No - SURGICAL HISTORY Hx Surgeries: Yes Hx Appendectomy: Yes - ANESTHESIA Hx Anesthesia: Yes Hx Anesthesia Reactions: Yes (difficulty to arouse after surgery) Meds Allergies/Adverse Reactions: Allergies Allergy/AdvReac Type Severity Reaction Status Date / Time orange juice Allergy Verified 06/21/17 17:05 - Medications Medications: Current Medications Sodium Chloride (Sodium Chloride 0.9%) 1,000 mls @ 150 mls/hr IV .Q6H40M [facility] Mineral Oil (Fleet Mineral Oil Enema) 135 ml RC DAILY PRN PRN Reason: Constipation Last Admin: 07/01/17 08:12 Dose: 135 ml Morphine Sulfate (Morphine) 4 mg IVP Q4 PRN PRN Reason: Pain, moderate (4-7) Last Admin: 07/01/17 11:42 Dose: 4 mg Ondansetron HCl (Zofran Inj) 4 mg IVP Q4 PRN PRN Reason: Nausea/Vomiting Last Admin: 07/01/17 11:58 Dose: 4 mg Pantoprazole Sodium (Protonix Inj) 40 mg IVP DAILY [facility] Last Admin: 07/01/17 09:09 Dose: 40 mg Polyethylene Glycol (Miralax) 17 gm PO TID [facility] Last Admin: 07/01/17 14:00 Dose: Not Given Senna/Docusate Sodium (Senokot S 50 Mg-8.6 Mg) 2 tab PO DAILY TIN Last Admin: 07/01/17 09:09 Dose: 2 tab Results - Vital Signs Recent Vital Signs: Last Vital Signs Temp 97.3 F L 07/01/17 15:11 Pulse 89 07/01/17 15:11 Resp 18 07/01/17 15:11 BP 85/53 L 07/01/17 15:11 Pulse Ox 100 07/01/17 15:11 - Labs Result Diagrams: 07/01/17 17:28 07/01/17 11:53 Labs: Laboratory Results - last 24 hr 06/30/17 07/01/17 07/01/17 21:00 11:21 11:21 WBC 17.3 H RBC 2.30 L Hgb 6.9 L Hct 20.8 L MCV 90.4 MCH 30.0 MCHC 33.1 RDW 15.2 H Plt Count 138 MPV 9.0 Neut % (Auto) 88.5 H Lymph % (Auto) 5.4 L Ocean % (Auto) 6.0 Eos % (Auto) 0.0 Baso % (Auto) 0.1 Neut # 15.3 H Lymph # 0.9 L Ocean # 1.0 H Eos # 0.0 Baso # 0.0 Neutrophils % (Manual) 86 H Band Neutrophils % 2 Lymphocytes % (Manual) 6 L Monocytes % (Manual) 4 Myelocytes % 2 H Platelet Estimate Normal Polychromasia Slight Anisocytosis (manual) Slight PT 11.1 INR 1.0 APTT 23 Fibrinogen 376 Puncture Site pCO2 pO2 HCO3 ABG pH ABG Total CO2 ABG O2 Saturation ABG Base Excess ABG Hemoglobin ABG Carboxyhemoglobin POC ABG HHb (Measured) ABG Methemoglobin Clark Test A-a O2 Difference Respiratory Index Hgb O2 Saturation FiO2 Crit Value Called To Crit Value Called By Crit Value Read Back Blood Gas Notified Time Sodium Potassium Chloride Carbon Dioxide Anion Gap BUN Creatinine Est GFR ( Amer) Est GFR (Non-Af Amer) Random Glucose Lactic Acid Calcium Total Bilirubin AST ALT Alkaline Phosphatase Total Protein Albumin Globulin Albumin/Globulin Ratio Blood Type B POSITIVE Antibody Screen Negative 07/01/17 07/01/17 07/01/17 11:53 15:25 16:40 WBC RBC Hgb Hct MCV MCH MCHC RDW Plt Count MPV Neut % (Auto) Lymph % (Auto) Ocean % (Auto) Eos % (Auto) Baso % (Auto) Neut # Lymph # Ocean # Eos # Baso # Neutrophils % (Manual) Band Neutrophils % Lymphocytes % (Manual) Monocytes % (Manual) Myelocytes % Platelet Estimate Polychromasia Anisocytosis (manual) PT INR APTT Fibrinogen Puncture Site Lra pCO2 31 L pO2 171 H HCO3 19.3 L ABG pH 7.36 ABG Total CO2 18.5 L ABG O2 Saturation 99.1 H ABG Base Excess -7.3 L ABG Hemoglobin 5.4 L ABG Carboxyhemoglobin 1.6 H POC ABG HHb (Measured) 0.9 ABG Methemoglobin 1.0 Clark Test Yes A-a O2 Difference 75.0 Respiratory Index 0.4 Hgb O2 Saturation 96.6 FiO2 40.0 Crit Value Called To Sophia Crit Value Called By Toña buitrago Crit Value Read Back Y Blood Gas Notified Time 1652 Sodium 127 L Potassium 5.5 H Chloride 97 L Carbon Dioxide 21 L Anion Gap 15 BUN 59 H Creatinine 3.0 H Est GFR ( Amer) 19 Est GFR (Non-Af Amer) 16 Random Glucose 104 Lactic Acid 1.3 Calcium 7.5 L Total Bilirubin 1.4 H AST 105 H D ALT 74 H D Alkaline Phosphatase 202 H Total Protein 5.0 L Albumin 2.7 L Globulin 2.3 Albumin/Globulin Ratio 1.2 Blood Type Antibody Screen 07/01/17 17:28 WBC 17.2 H RBC 2.00 L Hgb 5.8 L* Hct 18.2 L MCV 91.1 MCH 29.2 MCHC 32.1 L RDW 15.4 H Plt Count 140 MPV 8.8 Neut % (Auto) 88.9 H Lymph % (Auto) 4.3 L Ocean % (Auto) 6.0 Eos % (Auto) 0.5 Baso % (Auto) 0.3 Neut # 15.3 H Lymph # 0.7 L [place] # 1.0 H Eos # 0.1 Baso # 0.1 Neutrophils % (Manual) Band Neutrophils % Lymphocytes % (Manual) Monocytes % (Manual) Myelocytes % Platelet Estimate Polychromasia Anisocytosis (manual) PT INR APTT Fibrinogen Puncture Site pCO2 pO2 HCO3 ABG pH ABG Total CO2 ABG O2 Saturation ABG Base Excess ABG Hemoglobin ABG Carboxyhemoglobin POC ABG HHb (Measured) ABG Methemoglobin Clark Test A-a O2 Difference Respiratory Index Hgb O2 Saturation FiO2 Crit Value Called To Crit Value Called By Crit Value Read Back Blood Gas Notified Time Sodium Potassium Chloride Carbon Dioxide Anion Gap BUN Creatinine Est GFR ( Amer) Est GFR (Non-Af Amer) Random Glucose Lactic Acid Calcium Total Bilirubin AST ALT Alkaline Phosphatase Total Protein Albumin Globulin Albumin/Globulin Ratio Blood Type Antibody Screen
--- NOTE | 2017-07-01 18:28 | CP.PCM.PN ---
Subjective - Date & Time of Evaluation Date of Evaluation: 07/01/17 Time of Evaluation: 12:00 - Subjective Subjective: clinically same Objective - Vital Signs/Intake and Output Vital Signs (last 24 hours): Temp Pulse Resp BP Pulse Ox 97.3 F L 89 18 85/53 L 100 07/01/17 15:11 07/01/17 15:11 07/01/17 15:11 07/01/17 15:11 07/01/17 15:11 Intake and Output: 07/01/17 07/01/17 06:59 18:59 Intake Total 1105 2900 Balance 1105 2900 - Medications Medications: Current Medications Sodium Chloride (Sodium Chloride 0.9%) 1,000 mls @ 150 mls/hr IV .Q6H40M [facility] Mineral Oil (Fleet Mineral Oil Enema) 135 ml RC DAILY PRN PRN Reason: Constipation Last Admin: 07/01/17 08:12 Dose: 135 ml Morphine Sulfate (Morphine) 4 mg IVP Q4 PRN PRN Reason: Pain, moderate (4-7) Last Admin: 07/01/17 11:42 Dose: 4 mg Ondansetron HCl (Zofran Inj) 4 mg IVP Q4 PRN PRN Reason: Nausea/Vomiting Last Admin: 07/01/17 11:58 Dose: 4 mg Pantoprazole Sodium (Protonix Inj) 40 mg IVP DAILY [facility] Last Admin: 07/01/17 09:09 Dose: 40 mg Polyethylene Glycol (Miralax) 17 gm PO TID [facility] Last Admin: 07/01/17 14:00 Dose: Not Given Senna/Docusate Sodium (Senokot S 50 Mg-8.6 Mg) 2 tab PO DAILY [facility] Last Admin: 07/01/17 09:09 Dose: 2 tab - Labs Labs: 07/01/17 17:28 07/01/17 11:53 PT 11.1 SECONDS (9.7-12.2) 07/01/17 11:21 INR 1.0 07/01/17 11:21 APTT 23 SECONDS (21-34) 07/01/17 11:21 - Constitutional Appears: Well - Head Exam Head Exam: ATRAUMATIC, NORMAL INSPECTION, NORMOCEPHALIC - Eye Exam Eye Exam: EOMI, Normal appearance, PERRL Pupil Exam: NORMAL ACCOMODATION, PERRL - ENT Exam ENT Exam: Mucous Membranes Moist, Normal Exam - Neck Exam Neck Exam: Full ROM, Normal Inspection. absent: Lymphadenopathy - Respiratory Exam Respiratory Exam: Decreased Breath Sounds - Cardiovascular Exam Cardiovascular Exam: REGULAR RHYTHM, +S1, +S2 - GI/Abdominal Exam GI & Abdominal Exam: Soft, Diminished Bowel Sounds - Rectal Exam Rectal Exam: Deferred Assessment and Plan (1) Anemia Status: Acute (2) Colon tumor Status: Acute (3) Gastrointestinal stromal neoplasm Status: Acute (4) Hypokalemia Status: Acute
--- NOTE | 2017-07-01 18:35 | US ---
PROCEDURE: Ultrasound of the Kidneys HISTORY: elevated creatinine, Del Real catheter COMPARISON: None available. TECHNIQUE: Sonogram of the kidneys. FINDINGS: Examination markedly limited due to habitus and patient condition. RIGHT KIDNEY: Not visualized. LEFT KIDNEY: Measures: 9.8 x 5.0 x 5.0 cm. No obstructing calculus or hydronephrosis visualized. OTHER FINDINGS: The urinary bladder is not identified. IMPRESSION: Markedly limited study. The right kidney is not visualized. Limited visualization of the left kidney appears grossly unremarkable. The urinary bladder is not identifed.
[2017-07-01 18:48] LABS: NEUTROPHIL 83 % (50-75); TOTAL CELLS COUNTED 100
[2017-07-01] MEDS ORDERED: Midazolam 2 MG/2 ML VIAL IVP ONE (20:18)
--- NOTE | 2017-07-01 23:13 | CT ---
EXAM: CT Angiography Abdomen and Pelvis With Intravenous Contrast CLINICAL HISTORY: 57 years old, female; Condition or disease; Other: R/O localized bleeding; Additional info: Rule out localized bleeding TECHNIQUE: Axial computed tomographic angiography images of the abdomen and pelvis with intravenous contrast. All CT scans at this facility use one or more dose reduction techniques, viz.: automated exposure control; ma/kV adjustment per patient size (including targeted exams where dose is matched to indication; i.e. head); or iterative reconstruction technique. MIP reconstructed images were created and reviewed. Coronal and sagittal reformatted images were created and reviewed. CONTRAST: 100 mL of visipaque 320 administered intravenously. COMPARISON: CT - ABD PELVIS W/O PO OR IV CONT 2017-06-27 16:34 FINDINGS: Lower thorax: There is elevation of the right hemidiaphragm. There is minimal bibasilar atelectasis. VASCULATURE: Aorta: The abdominal aorta demonstrates mild atherosclerotic calcification. No abdominal aortic aneurysm. No dissection. Celiac trunk and mesenteric arteries: No acute findings. No occlusion or significant stenosis. Renal arteries: No acute findings. No occlusion or significant stenosis. Iliac arteries: No acute findings. No occlusion or significant stenosis. ABDOMEN: Liver: Again seen is a large, hypodense partially calcified mass at the junction of the lesser curvature of the stomach and the left lobe of the liver, currently measuring at least 7 cm in size. As noted on the prior study, this could represent recurrent or residual gist or other tumor. 2.0 CM cyst in the superior left lobe of the liver. A subcentimeter hypodensity at the posterior superior right dome of the liver is too small to definitively characterize. Gallbladder and bile ducts: Unremarkable. No calcified stones. No ductal dilation. Pancreas: Pancreas is atrophic and partially fatty replaced. No ductal dilation. Spleen: The spleen is normal. Adrenals: The adrenal glands are normal. Kidneys and ureters: The kidneys are normal. No hydronephrosis. Stomach and bowel: The stomach is predominantly decompressed. Scattered calcifications again noted about the stomach. There is no evidence of intestinal obstruction. Appendix: No findings to suggest acute appendicitis. PELVIS: Bladder: Bladder is decompressed around a Del Real catheter. Reproductive: Unremarkable as visualized. ABDOMEN and PELVIS: Intraperitoneal space: There is a large amount of abdominal pelvic ascites. This limits evaluation on this study. The ascites ranges in density between 0 and 23 Hounsfield units. Therefore, this most probably reflects a mixture of simple fluid perhaps with a small hemorrhagic or proteinaceous component. However, no definite focal area of acute hemorrhage is identified. There is no free intraperitoneal air. Bones/joints: There are moderate to severe degenerative spine changes. There is mild diffuse osteopenia. No acute fracture. No dislocation. Soft tissues: Unremarkable. Lymph nodes: There is no evidence of lymphadenopathy. IMPRESSION: 1. There is elevation of the right hemidiaphragm. 2. Again seen is a large, hypodense partially calcified mass at the junction of the lesser curvature of the stomach and the left lobe of the liver, currently measuring at least 7 cm in size. As noted on the prior study, this could represent recurrent or residual gist or other tumor. 3. There is a large amount of abdominal pelvic ascites. This limits evaluation on this study. The ascites ranges in density between 0 and 23 Hounsfield units. Therefore, this most probably reflects a mixture of simple fluid perhaps with a small hemorrhagic or proteinaceous component. However, no definite focal area of acute hemorrhage is identified. 4. Additional incidental and/or chronic findings as described.
[2017-07-02] MEDS: Sodium Chloride 0.9% 1,000 ML IV SCH ×5 (00:09→20:00)
[2017-07-02] MEDS: Morphine 4 MG/ML VIAL IVP PRN ×2 (01:47→22:25)
[2017-07-02 06:30] LABS: BASO % 0.2 % (0.0-2.0); HEMATOCRIT 23.8 % (34.0-47.0); LYMPH # 0.8 K/uL (1.0-4.3); LYMPH % 4.9 % (20.0-40.0); MEAN CELL VOLUME 90.8 fL (81.0-99.0); MEAN CORPUSCULAR HEMOGLOBIN 29.6 pg (27.0-31.0); MEAN CORPUSCULAR HGB CONC 32.6 g/dL (33.0-37.0); MEAN PLATELET VOLUME 8.7 fL (7.2-11.7); MONO # 1.2 K/uL (0.0-0.8); NRBC % 0.4 % (0.0-2.0); PLATELET COUNT 130 K/uL (130-400); RED CELL DISTRIBUTION WIDTH 14.5 % (11.5-14.5); WHITE BLOOD COUNT 17.2 K/uL (4.8-10.8)
[2017-07-02 06:53] LABS: ALB/GLOB RATIO 1.2 (1.0-2.1); BILIRUBIN,TOTAL 1.1 mg/dL (0.2-1.3); CALCIUM 6.9 mg/dl (8.6-10.4); MAGNESIUM 2.6 mg/dL (1.6-2.3); PHOSPHOROUS 8.8 mg/dL (2.5-4.5); POTASSIUM 5.8 mmol/L (3.6-5.2); TOTAL PROTEIN 4.7 g/dL (6.3-8.3)
--- NOTE | 2017-07-02 08:22 | CP.PCM.PN ---
<Rahul Samuel - Last Filed: 07/02/17 10:08> Subjective - Date & Time of Evaluation Date of Evaluation: 07/02/17 Time of Evaluation: 07:15 - Subjective Subjective: Rahul Samuel D.O. 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 Patient was seen and examined at bedside. Patient was transferred to the ICU yesterday afternoon after she had episode that was not responsive to fluid challenges and was found to have another drop in her Hgb despite having had multiple transfusions. Patient states that she feels "ok" at this time and has no acute complaints. Patient denies having had any more nausea or vomiting. Objective - Vital Signs/Intake and Output Vital Signs (last 24 hours): Temp Pulse Resp BP Pulse Ox 98.2 F 87 24 81/44 L 97 07/02/17 04:00 07/02/17 06:00 07/02/17 04:00 07/02/17 04:00 07/02/17 04:00 Intake and Output: 07/02/17 07/02/17 06:59 18:59 Intake Total 1948 Output Total 20 Balance 1928 - Medications Medications: Current Medications Sodium Chloride (Sodium Chloride 0.9%) 1,000 mls @ 150 mls/hr IV .Q6H40M [facility] Last Admin: 07/02/17 06:00 Dose: 150 mls/hr Mineral Oil (Fleet Mineral Oil Enema) 135 ml RC DAILY PRN PRN Reason: Constipation Last Admin: 07/01/17 08:12 Dose: 135 ml Morphine Sulfate (Morphine) 4 mg IVP Q4 PRN PRN Reason: Pain, moderate (4-7) Last Admin: 07/02/17 01:47 Dose: 4 mg Ondansetron HCl (Zofran Inj) 4 mg IVP Q4 PRN PRN Reason: Nausea/Vomiting Last Admin: 07/01/17 11:58 Dose: 4 mg Pantoprazole Sodium (Protonix Inj) 40 mg IVP DAILY [facility] Last Admin: 07/01/17 09:09 Dose: 40 mg Polyethylene Glycol (Miralax) 17 gm PO TID [facility] Last Admin: 07/01/17 20:00 Dose: Not Given Senna/Docusate Sodium (Senokot S 50 Mg-8.6 Mg) 2 tab PO DAILY TIN Last Admin: 07/01/17 09:09 Dose: 2 tab - Labs Labs: 07/02/17 06:21 07/02/17 06:21 PT 11.5 SECONDS (9.7-12.2) 07/02/17 06:27 INR 1.0 07/02/17 06:27 APTT 23 SECONDS (21-34) 07/02/17 06:27 - Constitutional Appears: Well developed, super obese, Non-toxic, Chronically Ill - Head Exam Head Exam: ATRAUMATIC, NORMOCEPHALIC - Eye Exam Eye Exam: EOMI - ENT Exam ENT Exam: Mucous Membranes Moist, Normal Oropharynx - Neck Exam Neck Exam: absent: Tenderness - Respiratory Exam Respiratory Exam: Clear to Ausculation Bilateral. absent: Rhonchi - Cardiovascular Exam Cardiovascular Exam: RRR, +S1, +S2 - GI/Abdominal Exam GI & Abdominal Exam: Distended, Soft, Tenderness (minimal, improved from yesterday), Normal Bowel Sounds (distant). absent: Firm, Guarding, Rigid - Extremities Exam Extremities Exam: absent: Calf Tenderness, Joint Swelling - Neurological Exam Neurological Exam: Alert, Awake, Oriented x3 - Psychiatric Exam Psychiatric exam: Normal Affect, Normal Mood - Skin Skin Exam: Dry, Warm Assessment and Plan - Assessment and Plan (Free Text) Assessment: 57 year old female with a PMH of GIST s/p partial large and small bowel resections and previous Gleevec use and obesity who presented with N/V Plan: Biopsy concurrent with recurrent GIST from EGD with EUS on 06/25 Worsening anemia with likely intraperitoneal bleeding, likely from GIST metastases Acute kidney injury with oliguria Transaminemia Morbid obesity HTN Constipation Transferred to ICU due to worsening hypotension and anemia Transfused again overnight with some improvement in Hgb from 5.8 to 7.8 Clinically patient appears unchanged Continue supportive care Continue with mineral oil enemas Continue antiemetics PRN Continue PPI therapy Continue bowel reigmen with miralax and senna Overall current prognosis is very guarded at this time with worsening anemia from likely intraperitoneal bleeding from GIST mets with 1200ml of darren blood removed by IR by paracentesis with increasing intraabdominal pressure and now acute worsening kidney injury with oliguira (only 20ml of urine yesterday), and thus patient may require surgical intervention Will discuss with hem/onc possible role of Gleevec Discussed with fellow and attending physician Thank you for the pleasure of participating in the care of this interesting patient <Uziel Groves MD - Last Filed: 07/02/17 11:51> Objective - Vital Signs/Intake and Output Vital Signs (last 24 hours): Temp Pulse Resp BP Pulse Ox 98.2 F 89 24 81/44 L 97 07/02/17 04:00 07/02/17 10:53 07/02/17 04:00 07/02/17 04:00 07/02/17 04:00 Intake and Output: 07/02/17 07/02/17 06:59 18:59 Intake Total 1948 Output Total 20 Balance 1927 - Medications Medications: Current Medications Sodium Chloride (Sodium Chloride 0.9%) 1,000 mls @ 150 mls/hr IV .Q6H40M [facility] Last Admin: 07/02/17 06:00 Dose: 150 mls/hr Pantoprazole Sodium 80 mg/ (Sodium Chloride) 100 mls @ 10 mls/hr IVPB .Q10H [facility] PRN Reason: 8 MG/HR Last Admin: 07/02/17 10:49 Dose: 10 mls/hr Mineral Oil (Fleet Mineral Oil Enema) 135 ml RC DAILY PRN PRN Reason: Constipation Last Admin: 07/01/17 08:12 Dose: 135 ml Morphine Sulfate (Morphine) 4 mg IVP Q4 PRN PRN Reason: Pain, moderate (4-7) Last Admin: 07/02/17 01:47 Dose: 4 mg Ondansetron HCl (Zofran Inj) 4 mg IVP Q4 PRN PRN Reason: Nausea/Vomiting Last Admin: 07/01/17 11:58 Dose: 4 mg Polyethylene Glycol (Miralax) 17 gm PO TID [facility] Last Admin: 07/02/17 10:53 Dose: 17 gm Senna/Docusate Sodium (Senokot S 50 Mg-8.6 Mg) 2 tab PO DAILY [facility] Last Admin: 07/01/17 09:09 Dose: 2 tab - Labs Labs: 07/02/17 06:21 07/02/17 06:21 PT 11.5 SECONDS (9.7-12.2) 12/08/17 06:27 INR 1.0 07/02/17 06:27 APTT 23 SECONDS (21-34) 07/02/17 06:27 Attending/Attestation - Attestation I have personally seen and examined this patient.: Yes I have fully participated in the care of the patient.: Yes I have reviewed all pertinent clinical information, including history, physical exam and plan: Yes Notes (Text): 07/02/17 11:43 Patient seen and examined with GI fellow and resident in MICU. Last 24 hours patient became hypotensive and short of breath and transferred to MICU. 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 She is s/p EUS with FNB of multiple gastric lesions, compatible with GIST on staining. Her hospital course has been complicated with declining Hct due to intraperitoneal bleed which has been confirmed on paracentesis. CTA did not show bleeding vessel. She was on palliative chemotherapy prior to admission which was discontinued. Curremtly with new onset worsening azotemia. Discussed in detail with surgeon regarding surgical options. No Gi intervention regarding bleeding peritoneum/ GIST lesions. Discussed with MICU attending regarding grim prognosis and to talk to family regarding goals of care. Discussed with primary attending.
[2017-07-02 08:40] LABS: RBC URINE 26 /hpf (0-3); URINE BACTERIA RARE (<OCC); URINE BILIRUBIN NEGATIVE (NEGATIVE); URINE BLOOD 3+ (NEGATIVE); URINE COLOR Amber (YELLOW); URINE GLUCOSE (UA) 1+ mg/dL (Normal); URINE KETONE NEGATIVE (NEGATIVE); URINE LEUKOCYTE ESTERASE 2+ Leu/uL (Negative); URINE PROTEIN 2+ mg/dL (NEGATIVE); WBC URINE 51 /hpf (0-5)
[2017-07-02] MEDS ORDERED: Pantoprazole 80 MG in Sodium Chloride 0.9% 100 ML IVP SCH (08:45)
[2017-07-02] MEDS ORDERED: Sod Polystyrene Sulf 15 gm/60 ml Susp PO ONE ×2 (09:15→11:15)
[2017-07-02 09:20] LABS: NEUTROPHIL 84 % (50-75); NUCLEATED RED BLOOD CELL 1 % (0-0); TOTAL CELLS COUNTED 100
[2017-07-02] MEDS: Docusate-Senna 50 mg-8.6 mg Tab PO SCH (10:00)
[2017-07-02] MEDS: Pantoprazole 80 MG in Sodium Chloride 0.9% 100 ML IVPB SCH ×2 (10:49→23:00)
[2017-07-02] MEDS: POLYETHYLENE GLYCOL 3350 17 GM/Dose PACKET PO SCH ×3 (10:53→18:10)
[2017-07-02] MEDS ORDERED: ePHEDrine 50 mg/ml Inj ONE (12:46)
[2017-07-02] MEDS ORDERED: Midazolam 2 MG/2 ML VIAL ONE (12:46)
[2017-07-02] MEDS ORDERED: Phenylephrine 10 mg/ml Inj ONE (12:46)
[2017-07-02] MEDS ORDERED: Etomidate 20 mg/10ml Inj IV ONE (12:46)
[2017-07-02] MEDS ORDERED: Ketamine 50 mg/ml Inj (10 ml) ONE (12:47)
[2017-07-02] MEDS ORDERED: Rocuronium 10 mg/ml (5 ml) ONE (12:47)
[2017-07-02] MEDS ORDERED: Propofol 10 mg/ml 1,000 MG/100 ML VIAL IV PRN (12:59)
[2017-07-02] MEDS ORDERED: Propofol 10 mg/ml Inj (20 ML) ONE (13:04)
--- NOTE | 2017-07-02 13:15 | PCM.ANES ---
Anesthesia Emergent Intubation - Diagnosis Working Diagnosis:: aspiration - Consult Reason for Consult:: respiratory failure - Intubation Attempts Previous Number of Intubation Attempts:: 0 - Pre-Intubation Vital Signs Blood Pressure: 90/39 Heart Rate: 100 Respiratory Rate: 40 O2 Sat: 99 FIO2: 1 Oxygen Delivery Method: BiPAP Level Of Consciousness: Somnolent Intubation Meds Given: Versed (KETAMINE 100mg, VERSED 2mg) - Airway Management Oropharyngeal Area Suctioned: Yes PreOxygenation: 10 Inhalation: No Rapid Sequence: No Cricoid Pressure: No Possible Aspiration: No - Method of Intubation Intubation Method: Oral ETT ETT Size: 8.0 Lipline@: 22 Easy: Yes Atramatic: Yes - Intubation Devices Brina Forcepts Used: No Dwarf Scope Used: Yes Fiber Optic Scope: No - Placement Confirmation Breath Sounds Present & Equal Bilaterally: Yes Gurgling Sounds Not Audible at Epigastrum: Yes Positive EtCO2: Yes Recommendations: Ventilator, Chest X Ray - Post-Intubation Vital Signs Blood Pressure: 116/90 Heart Rate: 80 Respiratory Rate: 15 O2 Sat: 100 FIO2: 1
[2017-07-02] MEDS ORDERED: Midazolam 50 mg/10 ml 100 MG in Sodium Chloride 0.9% 80 ML IV SCH (13:45)
[2017-07-02] MEDS ORDERED: Midazolam 2 MG/2 ML VIAL IVP ONE (13:49)
--- NOTE | 2017-07-02 14:44 | CP.PCM.PN ---
Subjective - Date & Time of Evaluation Date of Evaluation: 07/02/17 Time of Evaluation: 14:41 - Subjective Subjective: Progress note for nephrology, Dr. Lewis Pt is seen and examined at bedside. Pt was transferred to ICU yesterday evening due to hydrodynamic instability. Patient was also transfused 2 additional units of PRBC yesterday. Patient continues to c/o SOB. Currently on BiPAP. Patient denies having any CP, abd pain, N/V/D/C. Still complains of abd distention. Objective - Vital Signs/Intake and Output Vital Signs (last 24 hours): Temp Pulse Resp BP Pulse Ox 98.2 F 100 H 40 H 90/39 L 99 07/02/17 04:00 07/02/17 13:15 07/02/17 13:15 07/02/17 13:15 07/02/17 13:15 Intake and Output: 07/02/17 07/02/17 06:59 18:59 Intake Total 1948 Output Total 20 Balance 1928 - Medications Medications: Current Medications Sodium Chloride (Sodium Chloride 0.9%) 1,000 mls @ 150 mls/hr IV .Q6H40M TIN Last Admin: 07/02/17 06:00 Dose: 150 mls/hr Pantoprazole Sodium 80 mg/ (Sodium Chloride) 100 mls @ 10 mls/hr IVPB .Q10H TIN PRN Reason: 8 MG/HR Last Admin: 07/02/17 10:49 Dose: 10 mls/hr Midazolam HCl 100 mg/ Sodium (Chloride) 100 mls @ 2.9 mls/hr IV .Q24H TIN; 0.02 MG/KG/HR PRN Reason: Protocol Fentanyl Citrate 2,500 mcg/ (Sodium Chloride) 250 mls @ 29.03 mls/hr IV .Q8H37M TIN; 2 MCG/KG/HR PRN Reason: Protocol Last Admin: 07/02/17 13:40 Dose: Not Given Norepinephrine Bitartrate 4 mg (/ Dextrose) 254 mls @ 15.24 mls/hr IV .[id number] PRN; Protocol; 4 MCG/MIN PRN Reason: TITRATE PER MD ORDER Mineral Oil (Fleet Mineral Oil Enema) 135 ml RC DAILY PRN PRN Reason: Constipation Last Admin: 07/01/17 08:12 Dose: 135 ml Morphine Sulfate (Morphine) 4 mg IVP Q4 PRN PRN Reason: Pain, moderate (4-7) Last Admin: 07/02/17 01:47 Dose: 4 mg Ondansetron HCl (Zofran Inj) 4 mg IVP Q4 PRN PRN Reason: Nausea/Vomiting Last Admin: 07/01/17 11:58 Dose: 4 mg Polyethylene Glycol (Miralax) 17 gm PO TID [facility] Last Admin: 07/02/17 10:53 Dose: 17 gm Senna/Docusate Sodium (Senokot S 50 Mg-8.6 Mg) 2 tab PO DAILY TIN Last Admin: 07/01/17 09:09 Dose: 2 tab - Labs Labs: 07/02/17 06:21 07/02/17 06:21 PT 11.5 SECONDS (9.7-12.2) 07/02/17 06:27 INR 1.0 07/02/17 06:27 APTT 23 SECONDS (21-34) 07/02/17 06:27 - Constitutional Appears: Non-toxic, No Acute Distress - Head Exam Head Exam: ATRAUMATIC - ENT Exam ENT Exam: Mucous Membranes Moist - Respiratory Exam Respiratory Exam: Accessory Muscle Use, Clear to Ausculation Bilateral. absent : Rales, Rhonchi, Wheezes Additional comments: tachypenic - Cardiovascular Exam Cardiovascular Exam: Tachycardia, +S1, +S2. absent: Gallop, Rubs, Murmur - GI/Abdominal Exam GI & Abdominal Exam: Distended, Firm, Tenderness, Normal Bowel Sounds, Organomegaly. absent: Guarding, Rigid - Extremities Exam Extremities Exam: Pedal Edema - Neurological Exam Neurological Exam: Alert, Awake, Oriented x3 - Psychiatric Exam Psychiatric exam: Normal Affect, Normal Mood - Skin Skin Exam: Dry, Intact, Normal Color, Warm Assessment and Plan - Assessment and Plan (Free Text) Assessment: 57 year old female with past medical history of GIST tumor with mets, HTN is being seen for TANIA. Plan: 1. TANIA - Likely pre-renal damage due to hypotension from hemorrhagic shock. Patient initially presented with normal kidney function - Patient to undergo dialysis today. Dr. Lewis spoke with family at length about benefits and risks of dialysis and family is agreeable to start HD. 2. Hemorrhagic shock - Patient is being fluid resuscitated - CTA of abd pelvis done yesterday showed no signs of bleed - Continue IV fluid resuscitation 3. Acute respiratory distress - Patient required intubation - Currently on Versed for sedation and Levophed for hemodynamic support 4. Anemia - Hgb after transfusion 7.8. Will continue to monitor 5. GIST with metastisis - Heme/onc is consulted. Recommend Imatinib treatment - No surgical intervention planned at this point - CTA of abd pelvis showed partially calcified mass at junction of lesser curvature of stomach and left lobe of liver. ELarge amount of abdominal pelvic ascites. 6. Transaminitis - Likely due to hepatic lesions. - GI is consulted All recs and orders per Dr. Lewis
--- NOTE | 2017-07-02 15:18 | RAD ---
HISTORY: right TLC insertion COMPARISON: Chest x-ray performed 07/01/17 TECHNIQUE: Chest, one view. FINDINGS: Examination markedly limited by habitus and hypoinflation. Distal tip of the endotracheal tube terminates approximately 1.3 cm above the ignacio ; suggest repositioning to approximately 3 cm above the ignacio. Left-sided central venous catheter extends to the cavoatrial junction. LUNGS: Mild pulmonary venous congestion. No focal consolidation. Please note that chest x-ray has limited sensitivity for the detection of pulmonary masses. PLEURA: No significant pleural effusion identified. No definite pneumothorax . CARDIOVASCULAR: Cardiomegaly. OSSEOUS STRUCTURES: Degenerative changes of the spine. VISUALIZED UPPER ABDOMEN: Elevation of the right hemidiaphragm. OTHER FINDINGS: None. IMPRESSION: Distal tip of the endotracheal tube terminates approximately 1.3 cm above the ignacio ; suggest repositioning/withdrawing an additional 1.5 cm. Left-sided central venous catheter extends to the cavoatrial junction. Cardiomegaly. Mild pulmonary venous congestion. Findings discussed with Dr. Sinclair on 07/02/17 at 3:11 p.m.
[2017-07-02] MEDS ORDERED: HYDROmorphone 0.2 mg/ml PCA 6 MG/30 ML SOL IV PRN (15:47)
--- NOTE | 2017-07-02 16:10 | CP.PCM.PN ---
Subjective - Date & Time of Evaluation Date of Evaluation: 07/02/17 Time of Evaluation: 12:00 - Subjective Subjective: The patient is restless, c/o numbness, pain lower back, family by bedside. Discussed results of cytology with pathologist, ?? possibility of second primary , being sent out for special stains. Objective - Vital Signs/Intake and Output Vital Signs (last 24 hours): Temp Pulse Resp BP Pulse Ox 98.2 F 76 23 90/53 L 99 07/02/17 04:00 07/02/17 13:50 07/02/17 13:50 07/02/17 13:50 07/02/17 13:15 Intake and Output: 07/02/17 07/02/17 06:59 18:59 Intake Total 1948 Output Total 20 Balance 8 - Medications Medications: Current Medications Sodium Chloride (Sodium Chloride 0.9%) 1,000 mls @ 150 mls/hr IV .Q6H40M TIN Last Admin: 07/02/17 06:00 Dose: 150 mls/hr Pantoprazole Sodium 80 mg/ (Sodium Chloride) 100 mls @ 10 mls/hr IVPB .Q10H TIN PRN Reason: 8 MG/HR Last Admin: 07/02/17 10:49 Dose: 10 mls/hr Midazolam HCl 100 mg/ Sodium (Chloride) 100 mls @ 2.9 mls/hr IV .Q24H TIN; 0.02 MG/KG/HR PRN Reason: Protocol Fentanyl Citrate 2,500 mcg/ (Sodium Chloride) 250 mls @ 29.03 mls/hr IV .Q8H37M TIN; 2 MCG/KG/HR PRN Reason: Protocol Last Admin: 07/02/17 13:40 Dose: Not Given Norepinephrine Bitartrate 4 mg (/ Dextrose) 254 mls @ 15.24 mls/hr IV .[id number] PRN; Protocol; 4 MCG/MIN PRN Reason: TITRATE PER MD ORDER Last Admin: 07/02/17 13:50 Dose: 4 mcg/min, 15.24 mls/hr Hydromorphone/Sodium Chloride (Dilaudid Occ Therapy Asst) 6 mg in 30 mls @ 2.5 mls/hr IV .Q12H PRN; Protocol PRN Reason: TITRATE PER MD ORDER Mineral Oil (Fleet Mineral Oil Enema) 135 ml RC DAILY PRN PRN Reason: Constipation Last Admin: 07/01/17 08:12 Dose: 135 ml Morphine Sulfate (Morphine) 4 mg IVP Q4 PRN PRN Reason: Pain, moderate (4-7) Last Admin: 07/02/17 01:47 Dose: 4 mg Ondansetron HCl (Zofran Inj) 4 mg IVP Q4 PRN PRN Reason: Nausea/Vomiting Last Admin: 07/01/17 11:58 Dose: 4 mg Polyethylene Glycol (Miralax) 17 gm PO TID ITN Last Admin: 07/02/17 14:00 Dose: Not Given Senna/Docusate Sodium (Senokot S 50 Mg-8.6 Mg) 2 tab PO DAILY TIN Last Admin: 07/01/17 09:09 Dose: 2 tab - Labs Labs: 07/02/17 06:21 07/02/17 06:21 PT 11.5 SECONDS (9.7-12.2) 07/02/17 06:27 INR 1.0 07/02/17 06:27 APTT 23 SECONDS (21-34) 07/02/17 06:27 Assessment and Plan (1) Gastrointestinal stromal neoplasm Assessment & Plan: Metastatic GIST, gastric, ?? liver mets versus second primary, patient has clinically deteriorated, with worsening liver and kidney function. The angiogram is showing a large liver lesion, ? metastatic GIST versus second primary. The family has been made aware of patient's condition. The patient at this time wants to be a full code. Will check tumor markers and await peritoneal fluid cytology. Prognosis guarded. Status: Acute
[2017-07-02] MEDS ORDERED: Sodium Chloride 0.9% 1,000 ML IV ONE (16:28)
[2017-07-02 17:01] LABS: BASO # 0.1 K/uL (0.0-0.2); BASO % 0.3 % (0.0-2.0); EOS % 0.1 % (0.0-4.0); HEMATOCRIT 21.9 % (34.0-47.0); LYMPH # 0.9 K/uL (1.0-4.3); LYMPH % 4.6 % (20.0-40.0); MEAN CELL VOLUME 91.5 fL (81.0-99.0); MEAN CORPUSCULAR HEMOGLOBIN 28.8 pg (27.0-31.0); MEAN CORPUSCULAR HGB CONC 31.5 g/dL (33.0-37.0); MEAN PLATELET VOLUME 8.8 fL (7.2-11.7); MONO # 1.2 K/uL (0.0-0.8); MONO % 6.1 % (0.0-10.0); NRBC % 1.1 % (0.0-2.0); PLATELET COUNT 173 K/uL (130-400)
[2017-07-02] MEDS ORDERED: HYDROmorphone 0.5 mg/0.5 ml ISec IVP STA (17:24)
--- NOTE | 2017-07-02 18:07 | CP.CCUPN ---
<Huseyin Sinclair - Last Filed: 07/02/17 17:56> CCU Subjective - Physician Review Subjective (Free Text): PGY 1 ICU progress note for Dr. Pasquale Ascencio Patient seen and examined this morning at bedside. Patient was having difficulty speaking while wearing her BiPAP mask. She was asked if needed, would she want to be intubated, she stated yes. Patient states that all she wants is to be comfortable. She knows that her prognosis is not good. She prefers laying on her right side and refuses to lay flat on her back. CCU Objective - Vital Signs / Intake & Output Intake and Output (Last 8hrs): Intake & Output 07/02/17 07/02/17 07/02/17 06:59 14:59 22:59 Intake Total 1048 Output Total 0 Balance 1048 Intake: Intake, IV Amount 625 Right Forearm 625 Blood Product 273 Apheresis Lrbc As-3 Unit 273 [id number] Red Blood Cells Cpd As1 0 Lr Unit [id number] Other 150 Red Blood Cells Cpd As1 150 Lr Unit [id number] Output: Urine 0 Urethral (Miller) 0 - Physical Exam Head: Positive for: Atraumatic, Normocephalic Pupils: Positive for: PERRL Extroacular Muscles: Positive for: EOMI Conjunctiva: Positive for: Normal Mouth: Positive for: Dry (on BiPAP) Respiratory/Chest: Positive for: Respiratory Distress (on BiPAP), Accessory Muscle Use, Decreased Breath Sounds (due to body habitus; ) Cardiovascular: Positive for: Peripheal Pulses Present (weak ), Tachycardic Abdomen: Positive for: Other (obese ) Upper Extremity: Positive for: Other (obese) Lower Extremity: Positive for: Edema, Other (obese) Neurological: Positive for: Motor Func Grossly Intact. Negative for: Speech Normal (only speaks in short sentences. ) Skin: Positive for: Warm, Diaphoretic, Cold Psychiatric: Positive for: Alert - Medications Active Medications: Active Medications Generic Name Dose Route Start Last Admin Trade Name Freq PRN Reason Stop Dose Admin Sodium Chloride 1,000 mls @ 150 mls/hr 07/01/17 17:00 07/02/17 06:00 Sodium Chloride 0.9% IV 150 mls/hr .Q6H40M TIN Administration Pantoprazole Sodium 80 mg/ 100 mls @ 10 mls/hr 07/02/17 10:30 07/02/17 10:49 Sodium Chloride IVPB 10 mls/hr .Q10H TIN Administration 8 MG/HR Midazolam HCl 100 mg/ Sodium 100 mls @ 2.9 mls/hr 07/02/17 13:45 Chloride IV .Q24H TIN Protocol 0.02 MG/KG/HR Fentanyl Citrate 2,500 mcg/ 250 mls @ 29.03 mls/hr 07/02/17 13:15 07/02/17 13 :40 Sodium Chloride IV Not Given .Q8H37M TIN Protocol 2 MCG/KG/HR Norepinephrine Bitartrate 4 mg 254 mls @ 15.24 mls/hr 07/02/17 14:30 13:50 / Dextrose IV 4 mcg/min .[id number] PRN 15.24 mls/hr TITRATE PER MD ORDER Administration Protocol 4 MCG/MIN Hydromorphone/Sodium Chloride 6 mg in 30 mls @ 2.5 mls/hr 07/02/17 15:47 Dilaudid Risk Professional IV .Q12H PRN TITRATE PER MD ORDER Protocol Mineral Oil 135 ml 06/27/17 08:25 07/01/17 08:12 Fleet Mineral Oil Enema RC 135 ml DAILY PRN Administration Constipation Morphine Sulfate 4 mg 06/28/17 23:26 07/02/17 01:47 Morphine IVP 4 mg Q4 PRN Administration Pain, moderate (4-7) Ondansetron HCl 4 mg 06/22/17 00:39 07/01/17 11:58 Zofran Inj IVP 4 mg Q4 PRN Administration Nausea/Vomiting Polyethylene Glycol 17 gm 07/01/17 14:00 07/02/17 14:00 Miralax PO Not Given TID TIN Senna/Docusate Sodium 2 tab 06/23/17 18:30 07/01/17 09:09 Senokot S 50 Mg-8.6 Mg PO 2 tab DAILY TIN Administration - Patient Studies Lab Studies: Microbiology Studies 06/29/17 12:50 Gram Stain - Final Body Fluid - Ascites Fluid Body Fluid Culture - Preliminary NO GROWTH AFTER 3 DAYS Lab Studies 07/02/17 07/02/17 07/02/17 Range/Units 16:54 14:01 07:29 WBC 19.0 H (4.8-10.8) K/uL RBC 2.40 L (3.80-5.20) Mil/uL Hgb 6.9 L (11.0-16.0) g/dL Hct 21.9 L (34.0-47.0) % MCV 91.5 (81.0-99.0) fL MCH 28.8 (27.0-31.0) pg MCHC 31.5 L (33.0-37.0) g/dL RDW 15.0 H (11.5-14.5) % Plt Count 173 (130-400) K/uL MPV 8.8 (7.2-11.7) fL Neut % (Auto) 88.9 H (50.0-75.0) % Lymph % (Auto) 4.6 L (20.0-40.0) % Tama % (Auto) 6.1 (0.0-10.0) % Eos % (Auto) 0.1 (0.0-4.0) % Baso % (Auto) 0.3 (0.0-2.0) % Neut # 16.9 H (1.8-7.0) K/uL Lymph # 0.9 L (1.0-4.3) K/uL Tama # 1.2 H (0.0-0.8) K/uL Eos # 0.0 (0.0-0.7) K/uL Baso # 0.1 (0.0-0.2) K/uL Neutrophils % (Manual) (50-75) % Band Neutrophils % (0-2) % Lymphocytes % (Manual) (20-40) % Monocytes % (Manual) (0-10) % Nucleated RBC % (0-0) % Platelet Estimate (NORMAL) Polychromasia Hypochromasia (manual) Anisocytosis (manual) Macrocytosis (manual) Giovanny Cells PT (9.7-12.2) SECONDS INR APTT (21-34) SECONDS Sodium (132-148) mmol/L Potassium (3.6-5.2) mmol/L Chloride (98-107) mmol/L Carbon Dioxide (22-30) mmol/L Anion Gap (10-20) BUN (7-17) mg/dL Creatinine (0.7-1.2) mg/dL Est GFR ( Amer) Est GFR (Non-Af Amer) POC Glucose (mg/dL) 138 H (65-110) mg/dL Random Glucose (65-105) mg/dL Calcium (8.6-10.4) mg/dl Phosphorus (2.5-4.5) mg/dL Magnesium (1.6-2.3) mg/dL Total Bilirubin (0.2-1.3) mg/dL AST (14-36) U/L ALT (9-52) U/L Alkaline Phosphatase (38-126) U/L Total Protein (6.3-8.3) g/dL Albumin (3.5-5.0) g/dL Globulin (2.2-3.9) gm/dL Albumin/Globulin Ratio (1.0-2.1) Urine Color Yue (YELLOW) Urine Clarity Hazy (Clear) Urine pH 5.0 (5.0-8.0) Ur Specific Boomer 1.025 (1.003-1.030) Urine Protein 2+ H (NEGATIVE) mg/dL Urine Glucose (UA) 1+ (Normal) mg/dL Urine Ketones Negative (NEGATIVE) mg/dL Urine Blood 3+ H (NEGATIVE) Urine Nitrate Negative (NEGATIVE) Urine Bilirubin Negative (NEGATIVE) Urine Urobilinogen 2.0 H (0.2-1.0) mg/dL Ur Leukocyte Esterase 2+ H (Negative) Lisseth/uL Urine WBC (Auto) 51 H (0-5) /hpf Urine RBC (Auto) 26 H (0-3) /hpf Ur Squamous Epith Cells 1 (0-5) /hpf Urine Bacteria Rare (<OCC) Blood Type Antibody Screen 07/02/17 07/02/17 07/02/17 Range/Units 06:27 06:21 06:21 WBC 17.2 H (4.8-10.8) K/uL RBC 2.63 L (3.80-5.20) Mil/uL Hgb 7.8 L D (11.0-16.0) g/dL Hct 23.8 L (34.0-47.0) % MCV 90.8 (81.0-99.0) fL MCH 29.6 (27.0-31.0) pg MCHC 32.6 L (33.0-37.0) g/dL RDW 14.5 (11.5-14.5) % Plt Count 130 (130-400) K/uL MPV 8.7 (7.2-11.7) fL Neut % (Auto) 87.9 H (50.0-75.0) % Lymph % (Auto) 4.9 L (20.0-40.0) % Tama % (Auto) 7.0 (0.0-10.0) % Eos % (Auto) 0.0 (0.0-4.0) % Baso % (Auto) 0.2 (0.0-2.0) % Neut # 15.1 H (1.8-7.0) K/uL Lymph # 0.8 L (1.0-4.3) K/uL Tama # 1.2 H (0.0-0.8) K/uL Eos # 0.0 (0.0-0.7) K/uL Baso # 0.0 (0.0-0.2) K/uL Neutrophils % (Manual) 84 H (50-75) % Band Neutrophils % 3 H (0-2) % Lymphocytes % (Manual) 6 L (20-40) % Monocytes % (Manual) 7 (0-10) % Nucleated RBC % 1 H (0-0) % Platelet Estimate Normal (NORMAL) Polychromasia Slight Hypochromasia (manual) Slight Anisocytosis (manual) Slight Macrocytosis (manual) Slight Giovanny Cells Slight PT 11.5 (9.7-12.2) SECONDS INR 1.0 APTT 23 (21-34) SECONDS Sodium 129 L (132-148) mmol/L Potassium 5.8 H (3.6-5.2) mmol/L Chloride 100 (98-107) mmol/L Carbon Dioxide 17 L (22-30) mmol/L Anion Gap 18 (10-20) BUN 64 H (7-17) mg/dL Creatinine 3.9 H (0.7-1.2) mg/dL Est GFR ( Amer) 14 Est GFR (Non-Af Amer) 12 POC Glucose (mg/dL) (65-110) mg/dL Random Glucose 105 (65-105) mg/dL Calcium 6.9 L (8.6-10.4) mg/dl Phosphorus 8.8 H (2.5-4.5) mg/dL Magnesium 2.6 H (1.6-2.3) mg/dL Total Bilirubin 1.1 (0.2-1.3) mg/dL AST 177 H D (14-36) U/L ALT 118 H D (9-52) U/L Alkaline Phosphatase 178 H (38-126) U/L Total Protein 4.7 L (6.3-8.3) g/dL Albumin 2.5 L (3.5-5.0) g/dL Globulin 2.2 (2.2-3.9) gm/dL Albumin/Globulin Ratio 1.2 (1.0-2.1) Urine Color (YELLOW) Urine Clarity (Clear) Urine pH (5.0-8.0) Ur Specific Boomer (1.003-1.030) Urine Protein (NEGATIVE) mg/dL Urine Glucose (UA) (Normal) mg/dL Urine Ketones (NEGATIVE) mg/dL Urine Blood (NEGATIVE) Urine Nitrate (NEGATIVE) Urine Bilirubin (NEGATIVE) Urine Urobilinogen (0.2-1.0) mg/dL Ur Leukocyte Esterase (Negative) Lisseth/uL Urine WBC (Auto) (0-5) /hpf Urine RBC (Auto) (0-3) /hpf Ur Squamous Epith Cells (0-5) /hpf Urine Bacteria (<OCC) Blood Type Antibody Screen 07/01/17 06/30/17 Range/Units 17:28 21:00 WBC (4.8-10.8) K/uL RBC (3.80-5.20) Mil/uL Hgb (11.0-16.0) g/dL Hct (34.0-47.0) % MCV (81.0-99.0) fL MCH (27.0-31.0) pg MCHC (33.0-37.0) g/dL RDW (11.5-14.5) % Plt Count (130-400) K/uL MPV (7.2-11.7) fL Neut % (Auto) (50.0-75.0) % Lymph % (Auto) (20.0-40.0) % Tama % (Auto) (0.0-10.0) % Eos % (Auto) (0.0-4.0) % Baso % (Auto) (0.0-2.0) % Neut # (1.8-7.0) K/uL Lymph # (1.0-4.3) K/uL Tama # (0.0-0.8) K/uL Eos # (0.0-0.7) K/uL Baso # (0.0-0.2) K/uL Neutrophils % (Manual) 83 H (50-75) % Band Neutrophils % 2 (0-2) % Lymphocytes % (Manual) 5 L (20-40) % Monocytes % (Manual) 10 (0-10) % Nucleated RBC % (0-0) % Platelet Estimate Normal (NORMAL) Polychromasia Slight Hypochromasia (manual) Slight Anisocytosis (manual) Slight Macrocytosis (manual) Slight Homer Cells PT (9.7-12.2) SECONDS INR APTT (21-34) SECONDS Sodium (132-148) mmol/L Potassium (3.6-5.2) mmol/L Chloride (98-107) mmol/L Carbon Dioxide (22-30) mmol/L Anion Gap (10-20) BUN (7-17) mg/dL Creatinine (0.7-1.2) mg/dL Est GFR ( Amer) Est GFR (Non-Af Amer) POC Glucose (mg/dL) (65-110) mg/dL Random Glucose (65-105) mg/dL Calcium (8.6-10.4) mg/dl Phosphorus (2.5-4.5) mg/dL Magnesium (1.6-2.3) mg/dL Total Bilirubin (0.2-1.3) mg/dL AST (14-36) U/L ALT (9-52) U/L Alkaline Phosphatase (38-126) U/L Total Protein (6.3-8.3) g/dL Albumin (3.5-5.0) g/dL Globulin (2.2-3.9) gm/dL Albumin/Globulin Ratio (1.0-2.1) Urine Color (YELLOW) Urine Clarity (Clear) Urine pH (5.0-8.0) Ur Specific Boomer (1.003-1.030) Urine Protein (NEGATIVE) mg/dL Urine Glucose (UA) (Normal) mg/dL Urine Ketones (NEGATIVE) mg/dL Urine Blood (NEGATIVE) Urine Nitrate (NEGATIVE) Urine Bilirubin (NEGATIVE) Urine Urobilinogen (0.2-1.0) mg/dL Ur Leukocyte Esterase (Negative) Lisseth/uL Urine WBC (Auto) (0-5) /hpf Urine RBC (Auto) (0-3) /hpf Ur Squamous Epith Cells (0-5) /hpf Urine Bacteria (<OCC) Blood Type B POSITIVE Antibody Screen Negative Laboratory Results - last 24 hr 06/30/17 07/01/17 07/02/17 21:00 17:28 06:21 WBC RBC Hgb Hct MCV MCH MCHC RDW Plt Count MPV Neut % (Auto) Lymph % (Auto) Tama % (Auto) Eos % (Auto) Baso % (Auto) Neut # Lymph # Tama # Eos # Baso # Neutrophils % (Manual) 83 H Band Neutrophils % 2 Lymphocytes % (Manual) 5 L Monocytes % (Manual) 10 Nucleated RBC % Platelet Estimate Normal Polychromasia Slight Hypochromasia (manual) Slight Anisocytosis (manual) Slight Macrocytosis (manual) Slight Giovanny Cells PT INR APTT Sodium 129 L Potassium 5.8 H Chloride 100 Carbon Dioxide 17 L Anion Gap 18 BUN 64 H Creatinine 3.9 H Est GFR ( Amer) 14 Est GFR (Non-Af Amer) 12 POC Glucose (mg/dL) Random Glucose 105 Calcium 6.9 L Phosphorus 8.8 H Magnesium 2.6 H Total Bilirubin 1.1 AST 177 H D ALT 118 H D Alkaline Phosphatase 178 H Total Protein 4.7 L Albumin 2.5 L Globulin 2.2 Albumin/Globulin Ratio 1.2 Urine Color Urine Clarity Urine pH Ur Specific Boomer Urine Protein Urine Glucose (UA) Urine Ketones Urine Blood Urine Nitrate Urine Bilirubin Urine Urobilinogen Ur Leukocyte Esterase Urine WBC (Auto) Urine RBC (Auto) Ur Squamous Epith Cells Urine Bacteria Blood Type B POSITIVE Antibody Screen Negative 07/02/17 07/02/17 07/02/17 06:21 06:27 07:29 WBC 17.2 H RBC 2.63 L Hgb 7.8 L D Hct 23.8 L MCV 90.8 MCH 29.6 MCHC 32.6 L RDW 14.5 Plt Count 130 MPV 8.7 Neut % (Auto) 87.9 H Lymph % (Auto) 4.9 L Tama % (Auto) 7.0 Eos % (Auto) 0.0 Baso % (Auto) 0.2 Neut # 15.1 H Lymph # 0.8 L Tama # 1.2 H Eos # 0.0 Baso # 0.0 Neutrophils % (Manual) 84 H Band Neutrophils % 3 H Lymphocytes % (Manual) 6 L Monocytes % (Manual) 7 Nucleated RBC % 1 H Platelet Estimate Normal Polychromasia Slight Hypochromasia (manual) Slight Anisocytosis (manual) Slight Macrocytosis (manual) Slight Homer Cells Slight PT 11.5 INR 1.0 APTT 23 Sodium Potassium Chloride Carbon Dioxide Anion Gap BUN Creatinine Est GFR ( Amer) Est GFR (Non-Af Amer) POC Glucose (mg/dL) Random Glucose Calcium Phosphorus Magnesium Total Bilirubin AST ALT Alkaline Phosphatase Total Protein Albumin Globulin Albumin/Globulin Ratio Urine Color Yue Urine Clarity Hazy Urine pH 5.0 Ur Specific Boomer 1.025 Urine Protein 2+ H Urine Glucose (UA) 1+ Urine Ketones Negative Urine Blood 3+ H Urine Nitrate Negative Urine Bilirubin Negative Urine Urobilinogen 2.0 H Ur Leukocyte Esterase 2+ H Urine WBC (Auto) 51 H Urine RBC (Auto) 26 H Ur Squamous Epith Cells 1 Urine Bacteria Rare Blood Type Antibody Screen 07/02/17 07/02/17 14:01 16:54 WBC 19.0 H RBC 2.40 L Hgb 6.9 L Hct 21.9 L MCV 91.5 MCH 28.8 MCHC 31.5 L RDW 15.0 H Plt Count 173 MPV 8.8 Neut % (Auto) 88.9 H Lymph % (Auto) 4.6 L Tama % (Auto) 6.1 Eos % (Auto) 0.1 Baso % (Auto) 0.3 Neut # 16.9 H Lymph # 0.9 L Tama # 1.2 H Eos # 0.0 Baso # 0.1 Neutrophils % (Manual) Band Neutrophils % Lymphocytes % (Manual) Monocytes % (Manual) Nucleated RBC % Platelet Estimate Polychromasia Hypochromasia (manual) Anisocytosis (manual) Macrocytosis (manual) Homer Cells PT INR APTT Sodium Potassium Chloride Carbon Dioxide Anion Gap BUN Creatinine Est GFR ( Amer) Est GFR (Non-Af Amer) POC Glucose (mg/dL) 138 H Random Glucose Calcium Phosphorus Magnesium Total Bilirubin AST ALT Alkaline Phosphatase Total Protein Albumin Globulin Albumin/Globulin Ratio Urine Color Urine Clarity Urine pH Ur Specific Boomer Urine Protein Urine Glucose (UA) Urine Ketones Urine Blood Urine Nitrate Urine Bilirubin Urine Urobilinogen Ur Leukocyte Esterase Urine WBC (Auto) Urine RBC (Auto) Ur Squamous Epith Cells Urine Bacteria Blood Type Antibody Screen Review of Systems - Review of Systems All systems: reviewed and no additional remarkable complaints except (as per HPI ) Critical Care Progress Note - Nutrition Nutrition: Nutrition Category Date Time Status NPO Diet [DIET] Diets 07/02/17 Dinner Active Assessment/Plan - Assessment and Plan (Free Text) Assessment: 57 year old female with a past medical history of HTN, asthma, HTN, morbid obesity, NYHA class 3. 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 She has been transfused for several days, 10 units PRBC, to control bleeding, without success. Transferred to ICU for respiratory distress and need for closer monitoring. Plan: Hem/Onc: Dr. Khan consulted Dr. Dick consulted GIST and anemia Pulm: Due to patient struggling to breathe while on BiPAP, patient was intubated. CXR 07/02 - Distal tip of the endotracheal tube terminates approximately 1.3 cm above the ignacio ; suggest repositioning/withdrawing an additional 1.5 cm. Left- sided central venous catheter extends to the cavoatrial junction. Cardiomegaly. Mild pulmonary venous congestion. - tube placement corrected Vent settings PRVC 500/100/14/5 f/u post intubation ABG - delayed due to inability to obtain blood sample secondary to hypotension CV: hypotensive from acute blood loss 07/02 evening Hgb 6.9 from 07/02 morning Hgb 7.8 - transfuse 2 units f/u repeat CBC post transfusion Given 1 L bolus of NS x2 NS @ 150 ml/hr Levophed drip Vasopressin drip Neuro: Versed drip Dilaudid drip GI: Dr. Chen consulted, help appreciated NPO. CT angio abdomen pelvis 07/01 - 1. There is elevation of the right hemidiaphragm. 2. Again seen is a large, hypodense partially calcified mass at the junction of the lesser curvature of the stomach and the left lobe of the liver, currently measuring at least 7 cm in size. As noted on the prior study, this could represent recurrent or residual gist or other tumor. 3. There is a large amount of abdominal pelvic ascites. This limits evaluation on this study. The ascites ranges in density between 0 and 23 Hounsfield units. Therefore, this most probably reflects a mixture of simple fluid perhaps with a small hemorrhagic or proteinaceous component. However, no definite focal area of acute hemorrhage is identified. Protonix drip f/u GI recs Renal: Dr. Lewis consulted, help appreciated acute kidney injury, secondary to hypoperfusion. Triple lumen dialysis catheter placed in left IJ - will start dialysis tonight miller cath - strict I's and O's f/u renal recs Endo: no acute issues Prophylactic Care: DVT - anticoag contra due to active GI bleed. SCD contra due to LE edema GI - on protonix drip Patient is a full code. She wants everything to be done. 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 Case discussed with Dr. Pasquale Sinclair PGY1 <Ajay Ascencio - Last Filed: 07/02/17 19:16> CCU Objective - Vital Signs / Intake & Output Vital Signs (Last 4 hours): Vital Signs Temp Pulse Pulse Resp BP BP Pulse Ox 07/02/17 19:06 97.4 F L 104 H 20 79/26 L 07/02/17 19:02 97.4 F L 104 H 21 72/33 L 07/02/17 18:38 98.4 F 109 H 26 H 89/44 L 07/02/17 18:37 112 H 28 H 83/51 L 100 07/02/17 18:23 98.4 F 104 H 26 H 83/51 L 07/02/17 18:08 98.7 F 97 H 20 87/45 L 07/02/17 17:50 98.7 F 97 H 35 H 87/45 L 100 07/02/17 17:45 98.7 F 97 H 35 H 107/43 L Intake and Output (Last 8hrs): Intake & Output 07/02/17 07/02/17 07/02/17 06:59 14:59 22:59 Intake Total 1048 329 Output Total 0 Balance 1048 329 Intake: IV 4 Intake, IV Amount 625 Right Forearm 625 Blood Product 273 325 Apheresis Lrbc As-3 Unit 273 [id number] Red Blood Cells Cpd As1 325 Lr Unit [id number] Red Blood Cells Cpd As1 0 Lr Unit [id number] Red Blood Cells Cpd As1 0 Lr Unit [id number] Other 150 Red Blood Cells Cpd As1 150 Lr Unit [id number] Output: Urine 0 Urethral (Miller) 0 - Medications Active Medications: Active Medications Generic Name Dose Route Start Last Admin Trade Name Freq PRN Reason Stop Dose Admin Sodium Chloride 1,000 mls @ 150 mls/hr 07/01/17 17:00 07/02/17 18:24 Sodium Chloride 0.9% IV 150 mls/hr .Q6H40M TIN Administration Pantoprazole Sodium 80 mg/ 100 mls @ 10 mls/hr 07/02/17 10:30 07/02/17 10:49 Sodium Chloride IVPB 10 mls/hr .Q10H TIN Administration 8 MG/HR Midazolam HCl 100 mg/ Sodium 100 mls @ 2.9 mls/hr 07/02/17 13:45 07/02/17 14: 05 Chloride IV 0.02 mg/kg/hr .Q24H TIN 2.9 mls/hr Protocol Administration 0.02 MG/KG/HR Hydromorphone/Sodium Chloride 6 mg in 30 mls @ 2.5 mls/hr 07/02/17 15:47 Dilaudid Risk Professional IV .Q12H PRN TITRATE PER MD ORDER Protocol Norepinephrine Bitartrate 8 mg 258 mls @ 7.74 mls/hr 07/02/17 18:15 07/02/17 18:37 / Dextrose IV 4 mcg/min .Q24H PRN 7.74 mls/hr TITRATE PER MD ORDER Administration Protocol 4 MCG/MIN Vasopressin 40 units/ Sodium 40 mls @ 2.4 mls/hr 07/02/17 18:45 Chloride IV .[id number] TIN Protocol 0.04 UNITS/MIN Mineral Oil 135 ml 06/27/17 08:25 07/01/17 08:12 Fleet Mineral Oil Enema RC 135 ml DAILY PRN Administration Constipation Morphine Sulfate 4 mg 06/28/17 23:26 07/02/17 01:47 Morphine IVP 4 mg Q4 PRN Administration Pain, moderate (4-7) Ondansetron HCl 4 mg 06/22/17 00:39 07/01/17 11:58 Zofran Inj IVP 4 mg Q4 PRN Administration Nausea/Vomiting Polyethylene Glycol 17 gm 07/01/17 14:00 07/02/17 18:10 Miralax PO Not Given TID TIN Senna/Docusate Sodium 2 tab 06/23/17 18:30 07/02/17 10:00 Senokot S 50 Mg-8.6 Mg PO Not Given DAILY TIN - Patient Studies Lab Studies: Microbiology Studies 06/29/17 12:50 Gram Stain - Final Body Fluid - Ascites Fluid Body Fluid Culture - Preliminary NO GROWTH AFTER 3 DAYS Lab Studies 07/02/17 07/02/17 07/02/17 Range/Units 18:40 18:09 16:54 WBC 19.0 H (4.8-10.8) K/uL RBC 2.40 L (3.80-5.20) Mil/uL Hgb 6.9 L (11.0-16.0) g/dL Hct 21.9 L (34.0-47.0) % MCV 91.5 (81.0-99.0) fL MCH 28.8 (27.0-31.0) pg MCHC 31.5 L (33.0-37.0) g/dL RDW 15.0 H (11.5-14.5) % Plt Count 173 (130-400) K/uL MPV 8.8 (7.2-11.7) fL Neut % (Auto) 88.9 H (50.0-75.0) % Lymph % (Auto) 4.6 L (20.0-40.0) % Tama % (Auto) 6.1 (0.0-10.0) % Eos % (Auto) 0.1 (0.0-4.0) % Baso % (Auto) 0.3 (0.0-2.0) % Neut # 16.9 H (1.8-7.0) K/uL Lymph # 0.9 L (1.0-4.3) K/uL Tama # 1.2 H (0.0-0.8) K/uL Eos # 0.0 (0.0-0.7) K/uL Baso # 0.1 (0.0-0.2) K/uL Neutrophils % (Manual) 86 H (50-75) % Band Neutrophils % 2 (0-2) % Lymphocytes % (Manual) 3 L (20-40) % Monocytes % (Manual) 5 (0-10) % Eosinophils % (Manual) 1 (0-4) % Basophils % (Manual) 1 (0-2) % Metamyelocytes % 2 H (0-0) % Nucleated RBC % (0-0) % Platelet Estimate Normal (NORMAL) Polychromasia Hypochromasia (manual) Poikilocytosis (manual Slight Anisocytosis (manual) Slight Macrocytosis (manual) Homer Cells PT (9.7-12.2) SECONDS INR APTT (21-34) SECONDS pO2 43 (30-55) mm/Hg VBG pH 7.18 L* (7.32-7.43) VBG pCO2 83 H* (40-60) mmHg VBG HCO3 24.2 mmol/L VBG Total CO2 33.5 H (22-28) mmol/L VBG O2 Sat (Calc) 73.6 H (40-65) % VBG Base Excess 0.2 (0.0-2.0) mmol/L VBG Potassium 1.9 L* (3.6-5.2) mmol/L Glucose 103 (65-105) mg/dl Lactate 0.5 L (0.7-2.1) mmol/L FiO2 100.0 % PEEP 5 Crit Value Called To ajay Colindres Crit Value Called By Lourdes davey rcp Crit Value Read Back Y Blood Gas Notified Time 1850 Sodium 144.0 (132-148) mmol/L Potassium (3.6-5.2) mmol/L Chloride 111.0 H (98-107) mmol/L Carbon Dioxide (22-30) mmol/L Anion Gap (10-20) BUN (7-17) mg/dL Creatinine (0.7-1.2) mg/dL Est GFR ( Amer) Est GFR (Non-Af Amer) POC Glucose (mg/dL) (65-110) mg/dL Random Glucose (65-105) mg/dL Calcium (8.6-10.4) mg/dl Phosphorus (2.5-4.5) mg/dL Magnesium (1.6-2.3) mg/dL Total Bilirubin (0.2-1.3) mg/dL AST (14-36) U/L ALT (9-52) U/L Alkaline Phosphatase (38-126) U/L Total Protein (6.3-8.3) g/dL Albumin (3.5-5.0) g/dL Globulin (2.2-3.9) gm/dL Albumin/Globulin Ratio (1.0-2.1) Venous Blood Potassium 1.9 L* (3.6-5.2) mmol/L Urine Color (YELLOW) Urine Clarity (Clear) Urine pH (5.0-8.0) Ur Specific Boomer (1.003-1.030) Urine Protein (NEGATIVE) mg/dL Urine Glucose (UA) (Normal) mg/dL Urine Ketones (NEGATIVE) mg/dL Urine Blood (NEGATIVE) Urine Nitrate (NEGATIVE) Urine Bilirubin (NEGATIVE) Urine Urobilinogen (0.2-1.0) mg/dL Ur Leukocyte Esterase (Negative) Lisseth/uL Urine WBC (Auto) (0-5) /hpf Urine RBC (Auto) (0-3) /hpf Ur Squamous Epith Cells (0-5) /hpf Urine Bacteria (<OCC) Ur Random Creatinine 59.7 mg/dL Ur Random Sodium 116 mmol/L Blood Type Antibody Screen 07/02/17 07/02/17 07/02/17 Range/Units 14:01 07:29 06:27 WBC (4.8-10.8) K/uL RBC (3.80-5.20) Mil/uL Hgb (11.0-16.0) g/dL Hct (34.0-47.0) % MCV (81.0-99.0) fL MCH (27.0-31.0) pg MCHC (33.0-37.0) g/dL RDW (11.5-14.5) % Plt Count (130-400) K/uL MPV (7.2-11.7) fL Neut % (Auto) (50.0-75.0) % Lymph % (Auto) (20.0-40.0) % Tama % (Auto) (0.0-10.0) % Eos % (Auto) (0.0-4.0) % Baso % (Auto) (0.0-2.0) % Neut # (1.8-7.0) K/uL Lymph # (1.0-4.3) K/uL Tama # (0.0-0.8) K/uL Eos # (0.0-0.7) K/uL Baso # (0.0-0.2) K/uL Neutrophils % (Manual) (50-75) % Band Neutrophils % (0-2) % Lymphocytes % (Manual) (20-40) % Monocytes % (Manual) (0-10) % Eosinophils % (Manual) (0-4) % Basophils % (Manual) (0-2) % Metamyelocytes % (0-0) % Nucleated RBC % (0-0) % Platelet Estimate (NORMAL) Polychromasia Hypochromasia (manual) Poikilocytosis (manual Anisocytosis (manual) Macrocytosis (manual) Homer Cells PT 11.5 (9.7-12.2) SECONDS INR 1.0 APTT 23 (21-34) SECONDS pO2 (30-55) mm/Hg VBG pH (7.32-7.43) VBG pCO2 (40-60) mmHg VBG HCO3 mmol/L VBG Total CO2 (22-28) mmol/L VBG O2 Sat (Calc) (40-65) % VBG Base Excess (0.0-2.0) mmol/L VBG Potassium (3.6-5.2) mmol/L Glucose (65-105) mg/dl Lactate (0.7-2.1) mmol/L FiO2 % PEEP Crit Value Called To Crit Value Called By Crit Value Read Back Blood Gas Notified Time Sodium (132-148) mmol/L Potassium (3.6-5.2) mmol/L Chloride (98-107) mmol/L Carbon Dioxide (22-30) mmol/L Anion Gap (10-20) BUN (7-17) mg/dL Creatinine (0.7-1.2) mg/dL Est GFR ( Amer) Est GFR (Non-Af Amer) POC Glucose (mg/dL) 138 H (65-110) mg/dL Random Glucose (65-105) mg/dL Calcium (8.6-10.4) mg/dl Phosphorus (2.5-4.5) mg/dL Magnesium (1.6-2.3) mg/dL Total Bilirubin (0.2-1.3) mg/dL AST (14-36) U/L ALT (9-52) U/L Alkaline Phosphatase (38-126) U/L Total Protein (6.3-8.3) g/dL Albumin (3.5-5.0) g/dL Globulin (2.2-3.9) gm/dL Albumin/Globulin Ratio (1.0-2.1) Venous Blood Potassium (3.6-5.2) mmol/L Urine Color Yue (YELLOW) Urine Clarity Hazy (Clear) Urine pH 5.0 (5.0-8.0) Ur Specific Boomer 1.025 (1.003-1.030) Urine Protein 2+ H (NEGATIVE) mg/dL Urine Glucose (UA) 1+ (Normal) mg/dL Urine Ketones Negative (NEGATIVE) mg/dL Urine Blood 3+ H (NEGATIVE) Urine Nitrate Negative (NEGATIVE) Urine Bilirubin Negative (NEGATIVE) Urine Urobilinogen 2.0 H (0.2-1.0) mg/dL Ur Leukocyte Esterase 2+ H (Negative) Lisseth/uL Urine WBC (Auto) 51 H (0-5) /hpf Urine RBC (Auto) 26 H (0-3) /hpf Ur Squamous Epith Cells 1 (0-5) /hpf Urine Bacteria Rare (<OCC) Ur Random Creatinine mg/dL Ur Random Sodium mmol/L Blood Type Antibody Screen 07/02/17 07/02/17 06/30/17 Range/Units 06:21 06:21 21:00 WBC 17.2 H (4.8-10.8) K/uL RBC 2.63 L (3.80-5.20) Mil/uL Hgb 7.8 L D (11.0-16.0) g/dL Hct 23.8 L (34.0-47.0) % MCV 90.8 (81.0-99.0) fL MCH 29.6 (27.0-31.0) pg MCHC 32.6 L (33.0-37.0) g/dL RDW 14.5 (11.5-14.5) % Plt Count 130 (130-400) K/uL MPV 8.7 (7.2-11.7) fL Neut % (Auto) 87.9 H (50.0-75.0) % Lymph % (Auto) 4.9 L (20.0-40.0) % Tama % (Auto) 7.0 (0.0-10.0) % Eos % (Auto) 0.0 (0.0-4.0) % Baso % (Auto) 0.2 (0.0-2.0) % Neut # 15.1 H (1.8-7.0) K/uL Lymph # 0.8 L (1.0-4.3) K/uL Tama # 1.2 H (0.0-0.8) K/uL Eos # 0.0 (0.0-0.7) K/uL Baso # 0.0 (0.0-0.2) K/uL Neutrophils % (Manual) 84 H (50-75) % Band Neutrophils % 3 H (0-2) % Lymphocytes % (Manual) 6 L (20-40) % Monocytes % (Manual) 7 (0-10) % Eosinophils % (Manual) (0-4) % Basophils % (Manual) (0-2) % Metamyelocytes % (0-0) % Nucleated RBC % 1 H (0-0) % Platelet Estimate Normal (NORMAL) Polychromasia Slight Hypochromasia (manual) Slight Poikilocytosis (manual Anisocytosis (manual) Slight Macrocytosis (manual) Slight Homer Cells Slight PT (9.7-12.2) SECONDS INR APTT (21-34) SECONDS pO2 (30-55) mm/Hg VBG pH (7.32-7.43) VBG pCO2 (40-60) mmHg VBG HCO3 mmol/L VBG Total CO2 (22-28) mmol/L VBG O2 Sat (Calc) (40-65) % VBG Base Excess (0.0-2.0) mmol/L VBG Potassium (3.6-5.2) mmol/L Glucose (65-105) mg/dl Lactate (0.7-2.1) mmol/L FiO2 % PEEP Crit Value Called To Crit Value Called By Crit Value Read Back Blood Gas Notified Time Sodium 129 L (132-148) mmol/L Potassium 5.8 H (3.6-5.2) mmol/L Chloride 100 (98-107) mmol/L Carbon Dioxide 17 L (22-30) mmol/L Anion Gap 18 (10-20) BUN 64 H (7-17) mg/dL Creatinine 3.9 H (0.7-1.2) mg/dL Est GFR ( Amer) 14 Est GFR (Non-Af Amer) 12 POC Glucose (mg/dL) (65-110) mg/dL Random Glucose 105 (65-105) mg/dL Calcium 6.9 L (8.6-10.4) mg/dl Phosphorus 8.8 H (2.5-4.5) mg/dL Magnesium 2.6 H (1.6-2.3) mg/dL Total Bilirubin 1.1 (0.2-1.3) mg/dL AST 177 H D (14-36) U/L ALT 118 H D (9-52) U/L Alkaline Phosphatase 178 H (38-126) U/L Total Protein 4.7 L (6.3-8.3) g/dL Albumin 2.5 L (3.5-5.0) g/dL Globulin 2.2 (2.2-3.9) gm/dL Albumin/Globulin Ratio 1.2 (1.0-2.1) Venous Blood Potassium (3.6-5.2) mmol/L Urine Color (YELLOW) Urine Clarity (Clear) Urine pH (5.0-8.0) Ur Specific Boomer (1.003-1.030) Urine Protein (NEGATIVE) mg/dL Urine Glucose (UA) (Normal) mg/dL Urine Ketones (NEGATIVE) mg/dL Urine Blood (NEGATIVE) Urine Nitrate (NEGATIVE) Urine Bilirubin (NEGATIVE) Urine Urobilinogen (0.2-1.0) mg/dL Ur Leukocyte Esterase (Negative) Lisseth/uL Urine WBC (Auto) (0-5) /hpf Urine RBC (Auto) (0-3) /hpf Ur Squamous Epith Cells (0-5) /hpf Urine Bacteria (<OCC) Ur Random Creatinine mg/dL Ur Random Sodium mmol/L Blood Type B POSITIVE Antibody Screen Negative Laboratory Results - last 24 hr 06/30/17 07/02/17 07/02/17 21:00 06:21 06:21 WBC 17.2 H RBC 2.63 L Hgb 7.8 L D Hct 23.8 L MCV 90.8 MCH 29.6 MCHC 32.6 L RDW 14.5 Plt Count 130 MPV 8.7 Neut % (Auto) 87.9 H Lymph % (Auto) 4.9 L Tama % (Auto) 7.0 Eos % (Auto) 0.0 Baso % (Auto) 0.2 Neut # 15.1 H Lymph # 0.8 L Tama # 1.2 H Eos # 0.0 Baso # 0.0 Neutrophils % (Manual) 84 H Band Neutrophils % 3 H Lymphocytes % (Manual) 6 L Monocytes % (Manual) 7 Eosinophils % (Manual) Basophils % (Manual) Metamyelocytes % Nucleated RBC % 1 H Platelet Estimate Normal Polychromasia Slight Hypochromasia (manual) Slight Poikilocytosis (manual Anisocytosis (manual) Slight Macrocytosis (manual) Slight Homer Cells Slight PT INR APTT pO2 VBG pH VBG pCO2 VBG HCO3 VBG Total CO2 VBG O2 Sat (Calc) VBG Base Excess VBG Potassium Glucose Lactate FiO2 PEEP Crit Value Called To Crit Value Called By Crit Value Read Back Blood Gas Notified Time Sodium 129 L Potassium 5.8 H Chloride 100 Carbon Dioxide 17 L Anion Gap 18 BUN 64 H Creatinine 3.9 H Est GFR ( Amer) 14 Est GFR (Non-Af Amer) 12 POC Glucose (mg/dL) Random Glucose 105 Calcium 6.9 L Phosphorus 8.8 H Magnesium 2.6 H Total Bilirubin 1.1 AST 177 H D ALT 118 H D Alkaline Phosphatase 178 H Total Protein 4.7 L Albumin 2.5 L Globulin 2.2 Albumin/Globulin Ratio 1.2 Venous Blood Potassium Urine Color Urine Clarity Urine pH Ur Specific Boomer Urine Protein Urine Glucose (UA) Urine Ketones Urine Blood Urine Nitrate Urine Bilirubin Urine Urobilinogen Ur Leukocyte Esterase Urine WBC (Auto) Urine RBC (Auto) Ur Squamous Epith Cells Urine Bacteria Ur Random Creatinine Ur Random Sodium Blood Type B POSITIVE Antibody Screen Negative 07/02/17 07/02/17 07/02/17 06:27 07:29 14:01 WBC RBC Hgb Hct MCV MCH MCHC RDW Plt Count MPV Neut % (Auto) Lymph % (Auto) Tama % (Auto) Eos % (Auto) Baso % (Auto) Neut # Lymph # Tama # Eos # Baso # Neutrophils % (Manual) Band Neutrophils % Lymphocytes % (Manual) Monocytes % (Manual) Eosinophils % (Manual) Basophils % (Manual) Metamyelocytes % Nucleated RBC % Platelet Estimate Polychromasia Hypochromasia (manual) Poikilocytosis (manual Anisocytosis (manual) Macrocytosis (manual) Homer Cells PT 11.5 INR 1.0 APTT 23 pO2 VBG pH VBG pCO2 VBG HCO3 VBG Total CO2 VBG O2 Sat (Calc) VBG Base Excess VBG Potassium Glucose Lactate FiO2 PEEP Crit Value Called To Crit Value Called By Crit Value Read Back Blood Gas Notified Time Sodium Potassium Chloride Carbon Dioxide Anion Gap BUN Creatinine Est GFR ( Amer) Est GFR (Non-Af Amer) POC Glucose (mg/dL) 138 H Random Glucose Calcium Phosphorus Magnesium Total Bilirubin AST ALT Alkaline Phosphatase Total Protein Albumin Globulin Albumin/Globulin Ratio Venous Blood Potassium Urine Color Yue Urine Clarity Hazy Urine pH 5.0 Ur Specific Boomer 1.025 Urine Protein 2+ H Urine Glucose (UA) 1+ Urine Ketones Negative Urine Blood 3+ H Urine Nitrate Negative Urine Bilirubin Negative Urine Urobilinogen 2.0 H Ur Leukocyte Esterase 2+ H Urine WBC (Auto) 51 H Urine RBC (Auto) 26 H Ur Squamous Epith Cells 1 Urine Bacteria Rare Ur Random Creatinine Ur Random Sodium Blood Type Antibody Screen 07/02/17 07/02/17 07/02/17 16:54 18:09 18:40 WBC 19.0 H RBC 2.40 L Hgb 6.9 L Hct 21.9 L MCV 91.5 MCH 28.8 MCHC 31.5 L RDW 15.0 H Plt Count 173 MPV 8.8 Neut % (Auto) 88.9 H Lymph % (Auto) 4.6 L Tama % (Auto) 6.1 Eos % (Auto) 0.1 Baso % (Auto) 0.3 Neut # 16.9 H Lymph # 0.9 L Tama # 1.2 H Eos # 0.0 Baso # 0.1 Neutrophils % (Manual) 86 H Band Neutrophils % 2 Lymphocytes % (Manual) 3 L Monocytes % (Manual) 5 Eosinophils % (Manual) 1 Basophils % (Manual) 1 Metamyelocytes % 2 H Nucleated RBC % Platelet Estimate Normal Polychromasia Hypochromasia (manual) Poikilocytosis (manual Slight Anisocytosis (manual) Slight Macrocytosis (manual) Homer Cells PT INR APTT pO2 43 VBG pH 7.18 L* VBG pCO2 83 H* VBG HCO3 24.2 VBG Total CO2 33.5 H VBG O2 Sat (Calc) 73.6 H VBG Base Excess 0.2 VBG Potassium 1.9 L* Glucose 103 Lactate 0.5 L FiO2 100.0 PEEP 5 Crit Value Called To ajay Colindres Crit Value Called By Lourdes davey rcp Crit Value Read Back Y Blood Gas Notified Time 185 Sodium 144.0 Potassium Chloride 111.0 H Carbon Dioxide Anion Gap BUN Creatinine Est GFR ( Amer) Est GFR (Non-Af Amer) POC Glucose (mg/dL) Random Glucose Calcium Phosphorus Magnesium Total Bilirubin AST ALT Alkaline Phosphatase Total Protein Albumin Globulin Albumin/Globulin Ratio Venous Blood Potassium 1.9 L* Urine Color Urine Clarity Urine pH Ur Specific Boomer Urine Protein Urine Glucose (UA) Urine Ketones Urine Blood Urine Nitrate Urine Bilirubin Urine Urobilinogen Ur Leukocyte Esterase Urine WBC (Auto) Urine RBC (Auto) Ur Squamous Epith Cells Urine Bacteria Ur Random Creatinine 59.7 Ur Random Sodium 116 Blood Type Antibody Screen Critical Care Progress Note - Nutrition Nutrition: Nutrition Category Date Time Status NPO Diet [DIET] Diets 07/02/17 Dinner Active Assessment/Plan - Assessment and Plan (Free Text) Plan: Patient seen and examined at bedside. I had a long discussion with family members (Juanita [phone]) and Seth (brother). 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 Patient with multi organ failure with no treatment options for metastatic cancer. Patient was informed of this grave diagnosis and patient informed ICU team that she wanted every thing done, including intubation and central line for pressors. Patient's breathing worsed and patient requested to be placed on ventilator -Acute on chronic hypercapneic and hypoxic respiratory failure: immediately intubated by anesthesia, continue ventilation to keep pH b/w 7.35-7.45, increase minutes ventilation. -Shock: suspect combination of septic + hypovolemic shock: continue pressors to keep MAP >65, serial lactic -Acute blood loss anemia: serial cbc with blood transfusion to keep hb/hct stable (keep hemodynamic stability) -Leukocytosis: suspected sepsis 2nf invasion of tumor into sterile space: start empirical vanco per level + zosyn, kay culture -DVT ppx venodyens(at risk of Gi bleed) -PUD rx with ppI q12 cc time 65 minutes excluding any time spent on procedures. - Date & Time Date: 07/02/17 Time: 19:16
[2017-07-02 18:28] LABS: CREATININE, RANDOM URINE 59.7 mg/dL
[2017-07-02 18:47] LABS: BASOPHIL 1 % (0-2); EOSINOPHIL 1 % (0-4); METAMYELOCYTE 2 % (0-0); NEUTROPHIL 86 % (50-75); TOTAL CELLS COUNTED 100
[2017-07-02 18:50] LABS: VENOUS BLOOD GAS BASE EXCESS 0.2 mmol/L (0.0-2.0); VENOUS BLOOD GAS MODE PRVC; VENOUS BLOOD GAS PCO2 83 mmHg (40-60); VENOUS BLOOD PH 7.18 (7.32-7.43)
[2017-07-02 19:19] LABS: CARCINOEMBRYONIC ANTIGEN 3.5 ng/mL (0-3.0)
--- NOTE | 2017-07-02 19:19 | PCM.PROC ---
Procedures Attestation:: I certify that I have explained the specified Operation(s) or Procedure(s), risks, benefits and reasonable alternatives to the Patient and/or other person responsible. The opportunity was given to ask questions and all questions answered - Central Line Placement Left Internal Jugular Hemodialysis Access Aseptic technique was employed throughout the procedure: Hand Hygiene done prior to procedure, Full sterile barriers (mask, hair cover, sterile gown, sterile gloves), Full body sterile drape, Chloraprep Antiseptic: 30 second prep for IJ or SC sites Pt. Placed on Pulse Ox Monitor: Yes Central Line Prep: Chlorhexidine-Alcohol Combination Local Anesthesia Used: Lidocaine 1% Amount of Anesthesia Used (mls): 5 Central Line Lumen Inserted: triple Central Line Length: 16 cm Post Procedure: Sutured in Place, Good Blood Return, All Ports Aspirated, Flushed, Capped, Sterile Dressing Applied Secured by: Suture Post procedure dressing: Gauze, Clear vapor permeable, Chlorhexidine disc ( Biopatch) Post Procedure X-Ray: Yes Patient Tolerated Procedure: Well, No Complications Immediate Complications: None
--- NOTE | 2017-07-02 19:39 | CP.PCM.PN ---
Subjective - Date & Time of Evaluation Date of Evaluation: 07/02/17 Time of Evaluation: 13:40 - Subjective Subjective: clinically same Objective - Vital Signs/Intake and Output Vital Signs (last 24 hours): Temp Pulse Resp BP Pulse Ox 98.1 F 97 H 30 H 107/83 100 07/02/17 19:21 07/02/17 19:32 07/02/17 19:32 07/02/17 19:32 07/02/17 18:37 Intake and Output: 07/02/17 07/03/17 18:59 06:59 Intake Total 4 325 Balance 4 325 - Medications Medications: Current Medications Sodium Chloride (Sodium Chloride 0.9%) 1,000 mls @ 150 mls/hr IV .Q6H40M TIN Last Admin: 07/02/17 18:24 Dose: 150 mls/hr Pantoprazole Sodium 80 mg/ (Sodium Chloride) 100 mls @ 10 mls/hr IVPB .Q10H TIN PRN Reason: 8 MG/HR Last Admin: 07/02/17 10:49 Dose: 10 mls/hr Midazolam HCl 100 mg/ Sodium (Chloride) 100 mls @ 2.9 mls/hr IV .Q24H TIN; 0.02 MG/KG/HR PRN Reason: Protocol Last Titration: 07/02/17 16:00 Dose: 0.04 mg/kg/hr, 5.8 mls/hr Hydromorphone/Sodium Chloride (Dilaudid Fsr) 6 mg in 30 mls @ 2.5 mls/hr IV .Q12H PRN; Protocol PRN Reason: TITRATE PER MD ORDER Norepinephrine Bitartrate 8 mg (/ Dextrose) 258 mls @ 7.74 mls/hr IV .Q24H PRN ; Protocol; 4 MCG/MIN PRN Reason: TITRATE PER MD ORDER Last Admin: 07/02/17 18:37 Dose: 4 mcg/min, 7.74 mls/hr Vasopressin 40 units/ Sodium (Chloride) 40 mls @ 2.4 mls/hr IV .[id number] TIN; 0.04 UNITS/MIN PRN Reason: Protocol Mineral Oil (Fleet Mineral Oil Enema) 135 ml RC DAILY PRN PRN Reason: Constipation Last Admin: 07/01/17 08:12 Dose: 135 ml Morphine Sulfate (Morphine) 4 mg IVP Q4 PRN PRN Reason: Pain, moderate (4-7) Last Admin: 07/02/17 01:47 Dose: 4 mg Ondansetron HCl (Zofran Inj) 4 mg IVP Q4 PRN PRN Reason: Nausea/Vomiting Last Admin: 07/01/17 11:58 Dose: 4 mg Polyethylene Glycol (Miralax) 17 gm PO TID [facility] Last Admin: 07/02/17 18:10 Dose: Not Given Senna/Docusate Sodium (Senokot S 50 Mg-8.6 Mg) 2 tab PO DAILY [facility] Last Admin: 07/02/17 10:00 Dose: Not Given - Labs Labs: 07/02/17 16:54 07/02/17 06:21 PT 11.5 SECONDS (9.7-12.2) 07/02/17 06:27 INR 1.0 07/02/17 06:27 APTT 23 SECONDS (21-34) 07/02/17 06:27 - Constitutional Appears: Well - Head Exam Head Exam: ATRAUMATIC, NORMAL INSPECTION, NORMOCEPHALIC - Eye Exam Eye Exam: EOMI, Normal appearance, PERRL Pupil Exam: NORMAL ACCOMODATION, PERRL - ENT Exam ENT Exam: Mucous Membranes Moist, Normal Exam - Neck Exam Neck Exam: Full ROM, Normal Inspection. absent: Lymphadenopathy - Respiratory Exam Respiratory Exam: Decreased Breath Sounds - Cardiovascular Exam Cardiovascular Exam: REGULAR RHYTHM, +S1, +S2 - GI/Abdominal Exam GI & Abdominal Exam: Soft, Diminished Bowel Sounds - Rectal Exam Rectal Exam: Deferred Assessment and Plan (1) Anemia Status: Acute (2) Colon tumor Status: Acute (3) Gastrointestinal stromal neoplasm Status: Acute (4) Hypokalemia Status: Acute - Assessment and Plan (Free Text) Plan: Discussed with the family Poor prognosis No change in condition gotten worse on whole family was that is there is a strong genetic predisposition of this tumor family is aware discused with dr. billy saunders who was also at bedside pt hs expresssed full code
[2017-07-02] MEDS ORDERED: Sodium Chloride 0.9% 500 ML IV ONE (23:55)
[2017-07-03] MEDS ORDERED: Sodium Bicarbonate (8.4%) 50 Meq Syringe IVP ONE (00:12)
[2017-07-03] MEDS: Sodium Chloride 0.9% 1,000 ML IV SCH ×2 (03:00→09:28)
[2017-07-03] MEDS: Pantoprazole 80 MG in Sodium Chloride 0.9% 100 ML IVPB SCH ×2 (06:30)
--- NOTE | 2017-07-03 07:09 | CP.PCM.PN ---
Subjective - Date & Time of Evaluation Date of Evaluation: 07/03/17 Time of Evaluation: 07:03 - Subjective Subjective: Patient became bradycardic and then asystole, code henry called at 6:38 am, received epi, cpr, 2 amps of bicarb, rhythm noticed about 6:45, felt at the carotid. Patient given 2 more amps of bicarb and calcium gluconate as tele monitor showed peaked t waves. Now the rhythm was sinus. Code called off at 6:50 , but ROSC around 6:45. Patient's sister given a call by the nurse and informed about cardiac arrest being resuscitated. HD ports will be used to draw blood will start bicarb drip. Objective - Vital Signs/Intake and Output Vital Signs (last 24 hours): Temp Pulse Resp BP Pulse Ox 98.4 F 62 22 101/10 L 72 L 07/03/17 05:30 07/03/17 05:30 07/03/17 05:30 07/03/17 05:30 07/03/17 05:00 Intake and Output: 07/03/17 07/03/17 06:59 18:59 Intake Total 3737.4 Output Total 340 Balance 3397.4 - Medications Medications: Current Medications Sodium Chloride (Sodium Chloride 0.9%) 1,000 mls @ 150 mls/hr IV .Q6H40M TIN Last Admin: 07/02/17 18:24 Dose: 150 mls/hr Pantoprazole Sodium 80 mg/ (Sodium Chloride) 100 mls @ 10 mls/hr IVPB .Q10H TIN PRN Reason: 8 MG/HR Last Admin: 07/02/17 23:00 Dose: Not Given Midazolam HCl 100 mg/ Sodium (Chloride) 100 mls @ 2.9 mls/hr IV .Q24H TIN; 0.02 MG/KG/HR PRN Reason: Protocol Last Titration: 07/02/17 16:00 Dose: 0.04 mg/kg/hr, 5.8 mls/hr Hydromorphone/Sodium Chloride (Dilaudid [employer]) 6 mg in 30 mls @ 2.5 mls/hr IV .Q12H PRN; Protocol PRN Reason: TITRATE PER MD ORDER Norepinephrine Bitartrate 8 mg (/ Dextrose) 258 mls @ 7.74 mls/hr IV .Q24H PRN ; Protocol; 4 MCG/MIN PRN Reason: TITRATE PER MD ORDER Last Admin: 07/03/17 00:00 Dose: 25 mcg/min, 48.37 mls/hr Vasopressin 40 units/ Sodium (Chloride) 40 mls @ 2.4 mls/hr IV .[id number] TIN; 0.04 UNITS/MIN PRN Reason: Protocol Last Admin: 07/02/17 20:00 Dose: 0.04 units/min, 2.4 mls/hr Mineral Oil (Fleet Mineral Oil Enema) 135 ml RC DAILY PRN PRN Reason: Constipation Last Admin: 07/01/17 08:12 Dose: 135 ml Morphine Sulfate (Morphine) 4 mg IVP Q4 PRN PRN Reason: Pain, moderate (4-7) Last Admin: 07/02/17 22:25 Dose: 4 mg Ondansetron HCl (Zofran Inj) 4 mg IVP Q4 PRN PRN Reason: Nausea/Vomiting Last Admin: 07/01/17 11:58 Dose: 4 mg Polyethylene Glycol (Miralax) 17 gm PO TID [facility] Last Admin: 07/02/17 18:10 Dose: Not Given Senna/Docusate Sodium (Senokot S 50 Mg-8.6 Mg) 2 tab PO DAILY [facility] Last Admin: 07/02/17 10:00 Dose: Not Given - Labs Labs: 07/02/17 16:54 07/02/17 06:21 PT 11.5 SECONDS (9.7-12.2) 07/02/17 06:27 INR 1.0 07/02/17 06:27 APTT 23 SECONDS (21-34) 07/02/17 06:27
[2017-07-03] MEDS ORDERED: Vancomycin 1 GM 1 GM/250 ML BAG IVPB STA (07:11)
[2017-07-03] MEDS ORDERED: Sodium Bicarbonate 8.4% 150 MEQ in Dextrose 5% In Water 1,000 ML IV SCH (07:15)
[2017-07-03] MEDS ORDERED: Piperacill/Tazo 2.25gm in Dex 2.25 GM/50 ML BAG IVPB SCH (07:15)
[2017-07-03] MEDS ORDERED: Vancomycin 1 gm/NS 200 ml 1 GM/200 ML BAG IVPB STA (07:23)
[2017-07-03 07:45] LABS: BASO # 0.1 K/uL (0.0-0.2); BASO % 0.3 % (0.0-2.0); EOS % 0.3 % (0.0-4.0); HEMATOCRIT 28.8 % (34.0-47.0); LYMPH # 2.2 K/uL (1.0-4.3); LYMPH % 14.6 % (20.0-40.0); MEAN CORPUSCULAR HEMOGLOBIN 30.2 pg (27.0-31.0); MEAN CORPUSCULAR HGB CONC 32.1 g/dL (33.0-37.0); MEAN PLATELET VOLUME 9.8 fL (7.2-11.7); MONO # 0.5 K/uL (0.0-0.8); MONO % 3.6 % (0.0-10.0); NRBC % 31.6 % (0.0-2.0); RED CELL DISTRIBUTION WIDTH 14.7 % (11.5-14.5); WHITE BLOOD COUNT 14.9 K/uL (4.8-10.8)
[2017-07-03 07:58] LABS: MEAN CELL VOLUME 94.1 fL (81.0-99.0)
[2017-07-03] MEDS ORDERED: EPINEPHRINE 1 MG IV PRN (08:02)
[2017-07-03] MEDS ORDERED: SODIUM CHLORIDE 0.9% IV PRN (08:02)
[2017-07-03 08:13] VITALS: TEMP 98.6
--- NOTE | 2017-07-03 09:20 | CP.CCUPN ---
CCU Subjective - Physician Review Subjective (Free Text): PGY 1 ICU progress note for Dr. Pasquale Ascencio Patient seen and examined this morning at bedside. Patient intubated. ROS unobtainable at this time. CCU Objective - Vital Signs / Intake & Output Vital Signs (Last 4 hours): Vital Signs Temp Pulse Resp BP Pulse Ox 07/03/17 08:00 98.6 F 07/03/17 07:59 64 19 109/68 07/03/17 07:35 82 34 H 118/82 70 L 07/03/17 07:10 101 H 34 H 62 L 07/03/17 07:00 98 H 34 H 91 L 07/03/17 06:54 102 H 48 H 125/104 H 97 07/03/17 06:50 101 H 98 07/03/17 06:48 95 H 35 H 91/59 L 99 07/03/17 06:40 38 H 07/03/17 06:30 62 31 H 07/03/17 06:20 61 22 07/03/17 06:18 62 34 H 101/10 L 07/03/17 06:10 63 38 H 07/03/17 06:00 65 18 07/03/17 05:57 67 24 52/32 L 63 L 07/03/17 05:51 74 17 07/03/17 05:40 74 22 07/03/17 05:30 98.4 F 76 24 101/10 L 69 L 07/03/17 05:26 78 20 186/110 H 07/03/17 05:21 78 19 170/64 H 07/03/17 05:20 78 17 71 L Intake and Output (Last 8hrs): Intake & Output 07/02/17 07/03/17 07/03/17 22:59 06:59 14:59 Intake Total 2948.2 2242.4 585.0 Output Total 340 Balance 2608.2 2242.4 585.0 Intake: IV 4 308.6 Intake, IV Amount 2294.2 1733.8 585.0 Left Forearm 920.7 40 150 Right Hand 140 90 20 left jugular Chicho cath 776.3 384.6 112.6 side port lt. jug. 7.2 19.2 2.4 side port Chicho cath. 450 1200 300 Blood Product 650 0 Red Blood Cells Cpd As1 325 Lr Unit [id number] Red Blood Cells Cpd As1 325 Lr Unit [id number] Red Blood Cells Cpd As1 0 Lr Unit [id number] Other 200 Red Blood Cells Cpd As1 200 Lr Unit [id number] Output: Urine 40 Urethral (Miller) 40 Other 300 - Physical Exam Head: Positive for: Atraumatic, Normocephalic Pupils: Positive for: PERRL Conjunctiva: Positive for: Normal Mouth: Positive for: Other (intubated) Respiratory/Chest: Positive for: Decreased Breath Sounds (due to body habitus), Other (intubated) Cardiovascular: Positive for: Peripheal Pulses Present (weak ), Tachycardic Abdomen: Positive for: Other (obese ) Upper Extremity: Positive for: Other (obese) Lower Extremity: Positive for: Edema, Other (obese) Neurological: Positive for: Other (intubated/sedated) Skin: Positive for: Warm, Dry Psychiatric: Positive for: Other (intubated/sedated) - Medications Active Medications: Active Medications Generic Name Dose Route Start Last Admin Trade Name Freq PRN Reason Stop Dose Admin Sodium Chloride 1,000 mls @ 150 mls/hr 07/01/17 17:00 07/03/17 03:00 Sodium Chloride 0.9% IV 150 mls/hr .Q6H40M TIN Administration Pantoprazole Sodium 80 mg/ 100 mls @ 10 mls/hr 07/02/17 10:30 07/03/17 06:30 Sodium Chloride IVPB Not Given .Q10H TIN 8 MG/HR Midazolam HCl 100 mg/ Sodium 100 mls @ 2.9 mls/hr 07/02/17 13:45 07/02/17 16: 00 Chloride IV 0.04 mg/kg/hr .Q24H TIN 5.8 mls/hr Protocol Titration 0.02 MG/KG/HR Hydromorphone/Sodium Chloride 6 mg in 30 mls @ 2.5 mls/hr 07/02/17 15:47 Dilaudid Seaman Officer IV .Q12H PRN TITRATE PER MD ORDER Protocol Norepinephrine Bitartrate 8 mg 258 mls @ 7.74 mls/hr 07/02/17 18:15 07/03/17 05:00 / Dextrose IV 25 mcg/min .Q24H PRN 48.37 mls/hr TITRATE PER MD ORDER Administration Protocol 4 MCG/MIN Vasopressin 40 units/ Sodium 40 mls @ 2.4 mls/hr 07/02/17 18:45 07/02/17 20: 00 Chloride IV 0.04 units/min .[id number] TIN 2.4 mls/hr Protocol Administration 0.04 UNITS/MIN Sodium Bicarbonate 150 meq/ 1,150 mls @ 150 mls/hr 07/03/17 07:15 Dextrose IV .Q7H40M [facility] Piperacillin Sod/Tazobactam Sod 2.25 gm in 50 mls @ 100 mls/hr 07/03/17 07:15 Zosyn 2.25 Gm Iv Premix IVPB Q8H [facility] Epinephrine Bitartrate 1 mg/ 250 mls @ 15 mls/hr 07/03/17 08:02 Sodium Chloride IV .[id number] PRN TITRATE PER MD ORDER Protocol 1 MCG/MIN Mineral Oil 135 ml 06/27/17 08:25 07/01/17 08:12 Fleet Mineral Oil Enema RC 135 ml DAILY PRN Administration Constipation Morphine Sulfate 4 mg 06/28/17 23:26 07/02/17 22:25 Morphine IVP 4 mg Q4 PRN Administration Pain, moderate (4-7) Ondansetron HCl 4 mg 06/22/17 00:39 07/01/17 11:58 Zofran Inj IVP 4 mg Q4 PRN Administration Nausea/Vomiting Polyethylene Glycol 17 gm 07/01/17 14:00 07/02/17 18:10 Miralax PO Not Given TID [facility] Senna/Docusate Sodium 2 tab 06/23/17 18:30 07/02/17 10:00 Senokot S 50 Mg-8.6 Mg PO Not Given DAILY TIN - Patient Studies Lab Studies: Microbiology Studies 06/29/17 12:50 Gram Stain - Final Body Fluid - Ascites Fluid Body Fluid Culture - Preliminary NO GROWTH AFTER 3 DAYS Lab Studies 07/03/17 07/02/17 07/02/17 Range/Units 07:39 18:40 18:29 WBC 14.9 H (4.8-10.8) K/uL RBC 3.06 L (3.80-5.20) Mil/uL Hgb 9.2 L D (11.0-16.0) g/dL Hct 28.8 L (34.0-47.0) % MCV 94.1 D (81.0-99.0) fL MCH 30.2 (27.0-31.0) pg MCHC 32.1 L (33.0-37.0) g/dL RDW 14.7 H (11.5-14.5) % Plt Count 139 (130-400) K/uL MPV 9.8 (7.2-11.7) fL Neut % (Auto) 81.2 H (50.0-75.0) % Lymph % (Auto) 14.6 L (20.0-40.0) % Dane % (Auto) 3.6 (0.0-10.0) % Eos % (Auto) 0.3 (0.0-4.0) % Baso % (Auto) 0.3 (0.0-2.0) % Neut # 12.1 H (1.8-7.0) K/uL Lymph # 2.2 (1.0-4.3) K/uL Dane # 0.5 (0.0-0.8) K/uL Eos # 0.0 (0.0-0.7) K/uL Baso # 0.1 (0.0-0.2) K/uL Neutrophils % (Manual) (50-75) % Band Neutrophils % (0-2) % Lymphocytes % (Manual) (20-40) % Monocytes % (Manual) (0-10) % Eosinophils % (Manual) (0-4) % Basophils % (Manual) (0-2) % Metamyelocytes % (0-0) % Nucleated RBC % (0-0) % Platelet Estimate (NORMAL) Polychromasia Hypochromasia (manual) Poikilocytosis (manual Anisocytosis (manual) Macrocytosis (manual) [place] Cells pO2 43 (30-55) mm/Hg VBG pH 7.18 L* (7.32-7.43) VBG pCO2 83 H* (40-60) mmHg VBG HCO3 24.2 mmol/L VBG Total CO2 33.5 H (22-28) mmol/L VBG O2 Sat (Calc) 73.6 H (40-65) % VBG Base Excess 0.2 (0.0-2.0) mmol/L VBG Potassium 1.9 L* (3.6-5.2) mmol/L Sodium 144.0 (132-148) mmol/l Chloride 111.0 H (98-107) mmol/L Glucose 103 (65-105) mg/dl Lactate 0.5 L (0.7-2.1) mmol/L FiO2 100.0 % PEEP 5 Crit Value Called To ajay Colindres Crit Value Called By Lourdes davey rcp Crit Value Read Back Y Blood Gas Notified Time 1850 POC Glucose (mg/dL) (65-110) mg/dL Alpha Fetoprotein 3.6 (0.0-7.5) ng/mL Carcinoembryonic Ag (0-3.0) ng/mL Venous Blood Potassium 1.9 L* (3.6-5.2) mmol/L Ur Random Creatinine mg/dL Ur Random Sodium mmol/L Hep Bs Antigen (NEGATIVE) Hep Bs Antibody (NEGATIVE) Hep B Core IgM Ab (NEGATIVE) Hepatitis C Antibody (NEGATIVE) Blood Type Antibody Screen 07/02/17 07/02/17 07/02/17 Range/Units 18:29 18:29 18:09 WBC (4.8-10.8) K/uL RBC (3.80-5.20) Mil/uL Hgb (11.0-16.0) g/dL Hct (34.0-47.0) % MCV (81.0-99.0) fL MCH (27.0-31.0) pg MCHC (33.0-37.0) g/dL RDW (11.5-14.5) % Plt Count (130-400) K/uL MPV (7.2-11.7) fL Neut % (Auto) (50.0-75.0) % Lymph % (Auto) (20.0-40.0) % Dane % (Auto) (0.0-10.0) % Eos % (Auto) (0.0-4.0) % Baso % (Auto) (0.0-2.0) % Neut # (1.8-7.0) K/uL Lymph # (1.0-4.3) K/uL Dane # (0.0-0.8) K/uL Eos # (0.0-0.7) K/uL Baso # (0.0-0.2) K/uL Neutrophils % (Manual) (50-75) % Band Neutrophils % (0-2) % Lymphocytes % (Manual) (20-40) % Monocytes % (Manual) (0-10) % Eosinophils % (Manual) (0-4) % Basophils % (Manual) (0-2) % Metamyelocytes % (0-0) % Nucleated RBC % (0-0) % Platelet Estimate (NORMAL) Polychromasia Hypochromasia (manual) Poikilocytosis (manual Anisocytosis (manual) Macrocytosis (manual) Giovanny Cells pO2 (30-55) mm/Hg VBG pH (7.32-7.43) VBG pCO2 (40-60) mmHg VBG HCO3 mmol/L VBG Total CO2 (22-28) mmol/L VBG O2 Sat (Calc) (40-65) % VBG Base Excess (0.0-2.0) mmol/L VBG Potassium (3.6-5.2) mmol/L Sodium (132-148) mmol/l Chloride (98-107) mmol/L Glucose (65-105) mg/dl Lactate (0.7-2.1) mmol/L FiO2 % PEEP Crit Value Called To Crit Value Called By Crit Value Read Back Blood Gas Notified Time POC Glucose (mg/dL) (65-110) mg/dL Alpha Fetoprotein (0.0-7.5) ng/mL Carcinoembryonic Ag 3.5 H (0-3.0) ng/mL Venous Blood Potassium (3.6-5.2) mmol/L Ur Random Creatinine 59.7 mg/dL Ur Random Sodium 116 mmol/L Hep Bs Antigen Negative (NEGATIVE) Hep Bs Antibody Negative (NEGATIVE) Hep B Core IgM Ab Negative (NEGATIVE) Hepatitis C Antibody Negative (NEGATIVE) Blood Type Antibody Screen 07/02/17 07/02/17 07/02/17 Range/Units 16:54 14:01 06:21 WBC 19.0 H (4.8-10.8) K/uL RBC 2.40 L (3.80-5.20) Mil/uL Hgb 6.9 L (11.0-16.0) g/dL Hct 21.9 L (34.0-47.0) % MCV 91.5 (81.0-99.0) fL MCH 28.8 (27.0-31.0) pg MCHC 31.5 L (33.0-37.0) g/dL RDW 15.0 H (11.5-14.5) % Plt Count 173 (130-400) K/uL MPV 8.8 (7.2-11.7) fL Neut % (Auto) 88.9 H (50.0-75.0) % Lymph % (Auto) 4.6 L (20.0-40.0) % Dane % (Auto) 6.1 (0.0-10.0) % Eos % (Auto) 0.1 (0.0-4.0) % Baso % (Auto) 0.3 (0.0-2.0) % Neut # 16.9 H (1.8-7.0) K/uL Lymph # 0.9 L (1.0-4.3) K/uL Dane # 1.2 H (0.0-0.8) K/uL Eos # 0.0 (0.0-0.7) K/uL Baso # 0.1 (0.0-0.2) K/uL Neutrophils % (Manual) 86 H 84 H (50-75) % Band Neutrophils % 2 3 H (0-2) % Lymphocytes % (Manual) 3 L 6 L (20-40) % Monocytes % (Manual) 5 7 (0-10) % Eosinophils % (Manual) 1 (0-4) % Basophils % (Manual) 1 (0-2) % Metamyelocytes % 2 H (0-0) % Nucleated RBC % 1 H (0-0) % Platelet Estimate Normal Normal (NORMAL) Polychromasia Slight Hypochromasia (manual) Slight Poikilocytosis (manual Slight Anisocytosis (manual) Slight Slight Macrocytosis (manual) Slight [place] Cells Slight pO2 (30-55) mm/Hg VBG pH (7.32-7.43) VBG pCO2 (40-60) mmHg VBG HCO3 mmol/L VBG Total CO2 (22-28) mmol/L VBG O2 Sat (Calc) (40-65) % VBG Base Excess (0.0-2.0) mmol/L VBG Potassium (3.6-5.2) mmol/L Sodium (132-148) mmol/l Chloride (98-107) mmol/L Glucose (65-105) mg/dl Lactate (0.7-2.1) mmol/L FiO2 % PEEP Crit Value Called To Crit Value Called By Crit Value Read Back Blood Gas Notified Time POC Glucose (mg/dL) 138 H (65-110) mg/dL Alpha Fetoprotein (0.0-7.5) ng/mL Carcinoembryonic Ag (0-3.0) ng/mL Venous Blood Potassium (3.6-5.2) mmol/L Ur Random Creatinine mg/dL Ur Random Sodium mmol/L Hep Bs Antigen (NEGATIVE) Hep Bs Antibody (NEGATIVE) Hep B Core IgM Ab (NEGATIVE) Hepatitis C Antibody (NEGATIVE) Blood Type Antibody Screen 06/30/17 Range/Units 21:00 WBC (4.8-10.8) K/uL RBC (3.80-5.20) Mil/uL Hgb (11.0-16.0) g/dL Hct (34.0-47.0) % MCV (81.0-99.0) fL MCH (27.0-31.0) pg MCHC (33.0-37.0) g/dL RDW (11.5-14.5) % Plt Count (130-400) K/uL MPV (7.2-11.7) fL Neut % (Auto) (50.0-75.0) % Lymph % (Auto) (20.0-40.0) % Dane % (Auto) (0.0-10.0) % Eos % (Auto) (0.0-4.0) % Baso % (Auto) (0.0-2.0) % Neut # (1.8-7.0) K/uL Lymph # (1.0-4.3) K/uL Dane # (0.0-0.8) K/uL Eos # (0.0-0.7) K/uL Baso # (0.0-0.2) K/uL Neutrophils % (Manual) (50-75) % Band Neutrophils % (0-2) % Lymphocytes % (Manual) (20-40) % Monocytes % (Manual) (0-10) % Eosinophils % (Manual) (0-4) % Basophils % (Manual) (0-2) % Metamyelocytes % (0-0) % Nucleated RBC % (0-0) % Platelet Estimate (NORMAL) Polychromasia Hypochromasia (manual) Poikilocytosis (manual Anisocytosis (manual) Macrocytosis (manual) [place] Cells pO2 (30-55) mm/Hg VBG pH (7.32-7.43) VBG pCO2 (40-60) mmHg VBG HCO3 mmol/L VBG Total CO2 (22-28) mmol/L VBG O2 Sat (Calc) (40-65) % VBG Base Excess (0.0-2.0) mmol/L VBG Potassium (3.6-5.2) mmol/L Sodium (132-148) mmol/l Chloride (98-107) mmol/L Glucose (65-105) mg/dl Lactate (0.7-2.1) mmol/L FiO2 % PEEP Crit Value Called To Crit Value Called By Crit Value Read Back Blood Gas Notified Time POC Glucose (mg/dL) (65-110) mg/dL Alpha Fetoprotein (0.0-7.5) ng/mL Carcinoembryonic Ag (0-3.0) ng/mL Venous Blood Potassium (3.6-5.2) mmol/L Ur Random Creatinine mg/dL Ur Random Sodium mmol/L Hep Bs Antigen (NEGATIVE) Hep Bs Antibody (NEGATIVE) Hep B Core IgM Ab (NEGATIVE) Hepatitis C Antibody (NEGATIVE) Blood Type B POSITIVE Antibody Screen Negative Laboratory Results - last 24 hr 06/30/17 07/02/17 07/02/17 21:00 06:21 14:01 WBC RBC Hgb Hct MCV MCH MCHC RDW Plt Count MPV Neut % (Auto) Lymph % (Auto) Dane % (Auto) Eos % (Auto) Baso % (Auto) Neut # Lymph # Dane # Eos # Baso # Neutrophils % (Manual) 84 H Band Neutrophils % 3 H Lymphocytes % (Manual) 6 L Monocytes % (Manual) 7 Eosinophils % (Manual) Basophils % (Manual) Metamyelocytes % Nucleated RBC % 1 H Platelet Estimate Normal Polychromasia Slight Hypochromasia (manual) Slight Poikilocytosis (manual Anisocytosis (manual) Slight Macrocytosis (manual) Slight Giovanny Cells Slight pO2 VBG pH VBG pCO2 VBG HCO3 VBG Total CO2 VBG O2 Sat (Calc) VBG Base Excess VBG Potassium Sodium Chloride Glucose Lactate FiO2 PEEP Crit Value Called To Crit Value Called By Crit Value Read Back Blood Gas Notified Time POC Glucose (mg/dL) 138 H Alpha Fetoprotein Carcinoembryonic Ag Venous Blood Potassium Ur Random Creatinine Ur Random Sodium Hep Bs Antigen Hep Bs Antibody Hep B Core IgM Ab Hepatitis C Antibody Blood Type B POSITIVE Antibody Screen Negative 07/02/17 07/02/17 07/02/17 16:54 18:09 18:29 WBC 19.0 H RBC 2.40 L Hgb 6.9 L Hct 21.9 L MCV 91.5 MCH 28.8 MCHC 31.5 L RDW 15.0 H Plt Count 173 MPV 8.8 Neut % (Auto) 88.9 H Lymph % (Auto) 4.6 L Dane % (Auto) 6.1 Eos % (Auto) 0.1 Baso % (Auto) 0.3 Neut # 16.9 H Lymph # 0.9 L Dane # 1.2 H Eos # 0.0 Baso # 0.1 Neutrophils % (Manual) 86 H Band Neutrophils % 2 Lymphocytes % (Manual) 3 L Monocytes % (Manual) 5 Eosinophils % (Manual) 1 Basophils % (Manual) 1 Metamyelocytes % 2 H Nucleated RBC % Platelet Estimate Normal Polychromasia Hypochromasia (manual) Poikilocytosis (manual Slight Anisocytosis (manual) Slight Macrocytosis (manual) Giovanny Cells pO2 VBG pH VBG pCO2 VBG HCO3 VBG Total CO2 VBG O2 Sat (Calc) VBG Base Excess VBG Potassium Sodium Chloride Glucose Lactate FiO2 PEEP Crit Value Called To Crit Value Called By Crit Value Read Back Blood Gas Notified Time POC Glucose (mg/dL) Alpha Fetoprotein Carcinoembryonic Ag 3.5 H Venous Blood Potassium Ur Random Creatinine 59.7 Ur Random Sodium 116 Hep Bs Antigen Negative Hep Bs Antibody Hep B Core IgM Ab Negative Hepatitis C Antibody Negative Blood Type Antibody Screen 07/02/17 07/02/17 07/02/17 18:29 18:29 18:40 WBC RBC Hgb Hct MCV MCH MCHC RDW Plt Count MPV Neut % (Auto) Lymph % (Auto) Dane % (Auto) Eos % (Auto) Baso % (Auto) Neut # Lymph # Dane # Eos # Baso # Neutrophils % (Manual) Band Neutrophils % Lymphocytes % (Manual) Monocytes % (Manual) Eosinophils % (Manual) Basophils % (Manual) Metamyelocytes % Nucleated RBC % Platelet Estimate Polychromasia Hypochromasia (manual) Poikilocytosis (manual Anisocytosis (manual) Macrocytosis (manual) [place] Cells pO2 43 VBG pH 7.18 L* VBG pCO2 83 H* VBG HCO3 24.2 VBG Total CO2 33.5 H VBG O2 Sat (Calc) 73.6 H VBG Base Excess 0.2 VBG Potassium 1.9 L* Sodium 144.0 Chloride 111.0 H Glucose 103 Lactate 0.5 L FiO2 100.0 PEEP 5 Crit Value Called To ajay Colindres Crit Value Called By Lourdes davey rcp Crit Value Read Back Y Blood Gas Notified Time 1850 POC Glucose (mg/dL) Alpha Fetoprotein 3.6 Carcinoembryonic Ag Venous Blood Potassium 1.9 L* Ur Random Creatinine Ur Random Sodium Hep Bs Antigen Hep Bs Antibody Negative Hep B Core IgM Ab Hepatitis C Antibody Blood Type Antibody Screen 07/03/17 07:39 WBC 14.9 H RBC 3.06 L Hgb 9.2 L D Hct 28.8 L MCV 94.1 D MCH 30.2 MCHC 32.1 L RDW 14.7 H Plt Count 139 MPV 9.8 Neut % (Auto) 81.2 H Lymph % (Auto) 14.6 L Dane % (Auto) 3.6 Eos % (Auto) 0.3 Baso % (Auto) 0.3 Neut # 12.1 H Lymph # 2.2 Dane # 0.5 Eos # 0.0 Baso # 0.1 Neutrophils % (Manual) Band Neutrophils % Lymphocytes % (Manual) Monocytes % (Manual) Eosinophils % (Manual) Basophils % (Manual) Metamyelocytes % Nucleated RBC % Platelet Estimate Polychromasia Hypochromasia (manual) Poikilocytosis (manual Anisocytosis (manual) Macrocytosis (manual) Giovanny Cells pO2 VBG pH VBG pCO2 VBG HCO3 VBG Total CO2 VBG O2 Sat (Calc) VBG Base Excess VBG Potassium Sodium Chloride Glucose Lactate FiO2 PEEP Crit Value Called To Crit Value Called By Crit Value Read Back Blood Gas Notified Time POC Glucose (mg/dL) Alpha Fetoprotein Carcinoembryonic Ag Venous Blood Potassium Ur Random Creatinine Ur Random Sodium Hep Bs Antigen Hep Bs Antibody Hep B Core IgM Ab Hepatitis C Antibody Blood Type Antibody Screen Review of Systems - Review of Systems Systems not reviewed;Unavailable: Intubated Critical Care Progress Note - Nutrition Nutrition: Nutrition Category Date Time Status NPO Diet [DIET] Diets 07/02/17 Dinner Active Assessment/Plan - Assessment and Plan (Free Text) Assessment: 57 year old female with a past medical history of HTN, asthma, HTN, morbid obesity, NYHA class 3. 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 She has been transfused for several days, 10 units PRBC, to control bleeding, without success. Intubated. Plan: Patient remained hypotensive despite being on 2 pressers. She was started on epinephrine and phenylephrine this morning. A discussion between the family and Dr. Ajay Ascencio was had this morning. The family has been aware throughout the patient's hospital stay that her prognosis was very poor. Family made the decision to make the patient DNR. Resident Huseyin Sinclair was informed of Asystole on the monitor by Nurse Null. Patient was pronounced at 11:28 this morning. Hem/Onc: Dr. Khan consulted Dr. Dick consulted GIST and anemia Pulm: Intubated on 07/02 CXR 07/03 - Interval pull up the ETT since the previous exam mediated now is approximately 4.5 centimeter above the ignacio. Otherwise no interval change Vent settings PRVC 500/100/14/5 f/u post intubation ABG - delayed due to inability to obtain blood sample secondary to hypotension started on vanco started on zosyn CV: Shock - suspected to be combo hypotensive from acute blood loss Hgb 9.2 - 07/02 evening Hgb 6.9 from 07/02 morning Hgb 7.8 - transfuse 2 units bicarb drip @ 150 ml/hr Levophed drip Vasopressin drip Started on Epinephrine drip Started on Phenylephrine drip Neuro: Versed drip Dilaudid drip GI: Dr. Chen consulted, help appreciated NPO. CT angio abdomen pelvis 07/01 - 1. There is elevation of the right hemidiaphragm. 2. Again seen is a large, hypodense partially calcified mass at the junction of the lesser curvature of the stomach and the left lobe of the liver, currently measuring at least 7 cm in size. As noted on the prior study, this could represent recurrent or residual gist or other tumor. 3. There is a large amount of abdominal pelvic ascites. This limits evaluation on this study. The ascites ranges in density between 0 and 23 Hounsfield units. Therefore, this most probably reflects a mixture of simple fluid perhaps with a small hemorrhagic or proteinaceous component. However, no definite focal area of acute hemorrhage is identified. Protonix drip Renal: Dr. Lewis consulted, help appreciated acute kidney injury, secondary to hypoperfusion. Triple lumen dialysis catheter placed in left IJ - started dialysis on 07/02 miller cath - strict I's and O's Endo: no acute issues Prophylactic Care: DVT - anticoag contra due to active GI bleed. SCD contra due to LE edema GI - on protonix drip Case discussed with Dr. Pasquale Fontanez Dottie PGY1
[2017-07-03] MEDS ORDERED: Dextrose 50% VIAL Inj (50 ml) IV ONE (09:45)
[2017-07-03] MEDS ORDERED: Calcium Gluconate 4.65 mEq/10 ml Inj IVP ONE (09:45)
[2017-07-03] MEDS ORDERED: (Novolin R) Insulin Human Regular 100 units/ml vial IV ONE (09:45)
[2017-07-03] MEDS ORDERED: Phenylephrine 30 MG in Dextrose 5% In Water 250 ML IV PRN (10:00)
--- NOTE | 2017-07-03 10:00 | RAD ---
HISTORY: intubated COMPARISON: Comparison is made to 07/02/2017 FINDINGS: LUNGS: No significant interval change in the lungs noted since the previous exam. Mild pulmonary vascular congestion. Elevated of the right hemidiaphragm is again noted. The ET tube is again seen in place. Interval pull-up of the ETT since the previous exam. PLEURA: No significant pleural effusion identified, no pneumothorax apparent. CARDIOVASCULAR: Normal. OSSEOUS STRUCTURES: No significant abnormalities. VISUALIZED UPPER ABDOMEN: Normal. OTHER FINDINGS: None. IMPRESSION: Interval pull up the ETT since the previous exam mediated non is approximately 4.5 centimeter above the ignacio. Otherwise no interval change.
[2017-07-03 10:56] LABS: ALB/GLOB RATIO 1.2 (1.0-2.1); BILIRUBIN,TOTAL 1.4 mg/dL (0.2-1.3); CALCIUM 6.3 mg/dl (8.6-10.4); MAGNESIUM 2.6 mg/dL (1.6-2.3); PHOSPHOROUS 12.5 mg/dL (2.5-4.5); TOTAL PROTEIN 3.6 g/dL (6.3-8.3)
[2017-07-03 11:03] VITALS: BP 49/24
[2017-07-03 11:31] LABS: TROPONIN I 0.824 ng/mL (0.00-0.120)
[2017-07-03 11:42] VITALS: PULSE 61; RESP 23; O2SAT 53
[2017-07-03] MEDS: POLYETHYLENE GLYCOL 3350 17 GM/Dose PACKET PO SCH (11:50)
--- NOTE | 2017-07-03 11:57 | CP.PCM.PRO ---
Pronouncement of Note - Clinical Findings Physical Exam: No Response Verbal/Painful Stimuli, Absent Peripheral Pulses{ Carotid & Femoral}, Absent Heart & Breath Sounds, No Pupillary Light Reflex, No Corneal Reflex, Pupils Fixed & Dilated, Absence of Vital Signs - Pronouncement Time Time of Pronouncement of : 11:28 - Notifications Pronouncement Notifications: Family Notified, Atending Notified Land Title Examiner Notified: No - Autopsy Autopsy Requested: No - [place] [id number]
--- NOTE | 2017-07-03 14:09 | CP.PCM.PN ---
Subjective - Date & Time of Evaluation Date of Evaluation: 07/03/17 Time of Evaluation: 08:00 - Subjective Subjective: pt discussed iwth family who are bedside pt became hypotensive braudycardiac with gist tumor extensive discusion done [facility] [place] staff Objective - Vital Signs/Intake and Output Vital Signs (last 24 hours): Temp Pulse Resp BP Pulse Ox 98.6 F 61 23 49/24 L 53 L 07/03/17 08:00 07/03/17 11:20 07/03/17 11:20 07/03/17 10:22 07/03/17 11:10 Intake and Output: 07/03/17 07/03/17 06:59 18:59 Intake Total 4005.4 1953.5 Output Total 340 Balance 3665.4 1953.5 - Medications Medications: Current Medications Sodium Chloride (Sodium Chloride 0.9%) 1,000 mls @ 150 mls/hr IV .Q6H40M TIN Last Admin: 07/03/17 09:28 Dose: 150 mls/hr Pantoprazole Sodium 80 mg/ (Sodium Chloride) 100 mls @ 10 mls/hr IVPB .Q10H TIN PRN Reason: 8 MG/HR Last Admin: 07/03/17 06:30 Dose: Not Given Midazolam HCl 100 mg/ Sodium (Chloride) 100 mls @ 2.9 mls/hr IV .Q24H TIN; 0.02 MG/KG/HR PRN Reason: Protocol Last Titration: 07/02/17 16:00 Dose: 0.04 mg/kg/hr, 5.8 mls/hr Hydromorphone/Sodium Chloride (Dilaudid Credit Resolution Representative) 6 mg in 30 mls @ 2.5 mls/hr IV .Q12H PRN; Protocol PRN Reason: TITRATE PER MD ORDER Norepinephrine Bitartrate 8 mg (/ Dextrose) 258 mls @ 7.74 mls/hr IV .Q24H PRN ; Protocol; 4 MCG/MIN PRN Reason: TITRATE PER MD ORDER Last Admin: 07/03/17 05:00 Dose: 25 mcg/min, 48.37 mls/hr Vasopressin 40 units/ Sodium (Chloride) 40 mls @ 2.4 mls/hr IV .[id number] TIN; 0.04 UNITS/MIN PRN Reason: Protocol Last Admin: 07/03/17 11:51 Dose: Not Given Sodium Bicarbonate 150 meq/ (Dextrose) 1,150 mls @ 150 mls/hr IV .Q7H40M [facility] Last Admin: 07/03/17 07:30 Dose: 150 mls/hr Piperacillin Sod/Tazobactam Sod (Zosyn 2.25 Gm Iv Premix) 2.25 gm in 50 mls @ 100 mls/hr IVPB Q8H [facility] Last Admin: 07/03/17 07:30 Dose: 100 mls/hr Epinephrine Bitartrate 1 mg/ (Sodium Chloride) 250 mls @ 15 mls/hr IV .[id number] PRN; Protocol; 1 MCG/MIN PRN Reason: TITRATE PER MD ORDER Last Admin: 07/03/17 08:20 Dose: 15 mls/hr Phenylephrine HCl 30 mg/ (Dextrose) 253 mls @ 10.12 mls/hr IV .Q24H PRN; Protocol; 20 MCG/MIN PRN Reason: TITRATE PER MD ORDER Mineral Oil (Fleet Mineral Oil Enema) 135 ml RC DAILY PRN PRN Reason: Constipation Last Admin: 07/01/17 08:12 Dose: 135 ml Morphine Sulfate (Morphine) 4 mg IVP Q4 PRN PRN Reason: Pain, moderate (4-7) Last Admin: 07/02/17 22:25 Dose: 4 mg Ondansetron HCl (Zofran Inj) 4 mg IVP Q4 PRN PRN Reason: Nausea/Vomiting Last Admin: 07/01/17 11:58 Dose: 4 mg Polyethylene Glycol (Miralax) 17 gm PO TID [facility] Last Admin: 07/03/17 11:50 Dose: Not Given Senna/Docusate Sodium (Senokot S 50 Mg-8.6 Mg) 2 tab PO DAILY [facility] Last Admin: 07/02/17 10:00 Dose: Not Given - Labs Labs: 07/03/17 07:39 07/03/17 09:03 PT 11.5 SECONDS (9.7-12.2) 07/02/17 06:27 INR 1.0 07/02/17 06:27 APTT 23 SECONDS (21-34) 07/02/17 06:27 Assessment and Plan (1) Anemia Status: Acute (2) Colon tumor Status: Acute (3) Gastrointestinal stromal neoplasm Status: Acute (4) Hypokalemia Status: Acute
== END 2017-07-03 11:28 | DRG 542 ==
LOC: C.ER 15:56 → C.9E 22:12 → C.5S 23:17 → UNDODISIN 06-23 13:45 → C.6T 06-25 22:47 → C.9I 07-01 18:56
PROVIDERS: ADMIT Internal Medicine Nephrology; ATTEND Internal Medicine Nephrology
PROC: 3E0234Z Introduction of Serum, Toxoid and Vaccine into Muscle, Percutaneous Approach (ICD-10-PCS; 2017-06-25)
PROC: 0DB98ZX Excision of Duodenum, Via Natural or Artificial Opening Endoscopic, Diagnostic (ICD-10-PCS; 2017-06-25)
PROC: 0DB68ZX Excision of Stomach, Via Natural or Artificial Opening Endoscopic, Diagnostic (ICD-10-PCS; 2017-06-25)
PROC: 0W9G3ZZ Drainage of Peritoneal Cavity, Percutaneous Approach (ICD-10-PCS; 2017-06-29)
PROC: 06L Lower Veins, Occlusion (ICD-10-PCS; 2017-06-29)
PROC: 0BH17EZ Insertion of Endotracheal Airway into Trachea, Via Natural or Artificial Opening (ICD-10-PCS; principal; 2017-07-02)
PROC: 5A1945Z Respiratory Ventilation, 24-96 Consecutive Hours (ICD-10-PCS; 2017-07-02)
PROC: 02HV33Z Insertion of Infusion Device into Superior Vena Cava, Percutaneous Approach (ICD-10-PCS; 2017-07-02)
PROC: 5A1D70Z Performance of Urinary Filtration, Intermittent, Less than 6 Hours Per Day (ICD-10-PCS; 2017-07-02)
DX: C49.A0 Gastrointestinal stromal tumor, unspecified site (principal); J96.90 Respiratory failure, unspecified, unspecified whether with hypoxia or hypercapnia; K66.1 Hemoperitoneum; N17.9 Acute kidney failure, unspecified; D62 Acute posthemorrhagic anemia; E66.01 Morbid (severe) obesity due to excess calories; R18.8 Other ascites; E87.5 Hyperkalemia; Z68.43 Body mass index [BMI] 50.0-59.9, adult; E87.6 Hypokalemia; K59.00 Constipation, unspecified; Z23 Encounter for immunization; I10 Essential (primary) hypertension; K29.70 Gastritis, unspecified, without bleeding; J45.909 Unspecified asthma, uncomplicated; Z85.00 Personal history of malignant neoplasm of unspecified digestive organ